=== PATIENT | male | born 1960 | race African-American/Black ===

== ENCOUNTER 2017-01-12 00:04 | Inpatient (IN) ==
[2017-01-12] MEDS ORDERED: SODIUM CHLORIDE 0.9% 500 ML IV STA (01:18)
--- NOTE | 2017-01-12 01:42 | Emergency Department Note ---
Cameron Hobson Mantricia, am scribing for, and in the presence of, Srinivasan Hurst M.D. 01:04. Aris Hobson Howard T, M.D., personally performed the services described in this documentation, ascribed by Sulema Barnes in my presence, and it is both accurate and complete . Arrival - Arrival Chief Complaint: Urogenital - Male Stated Complaint: Male ED Nursing Triage Note: C/C transfer from [facility] for Urology consult. They were not able to insert a crump catheter. Pt was initially seen in ER for fever. Mode of Arrival: Stretcher Limitations: Language Barrier Source: Family Time Seen by Provider: 01/12/17 00:40 - History of Present Illness HPI Narrative: Pt is a 56 y/o black male arriving to ED as a transfer from [facility] for evaluation of blood in urine that onset today. Pt was initially at [facility] for evaluation of a fever of 104. Before arriving to [place], pt was given Ibuprofen by . Once at [facility], a crump catheter was placed and blood was noticed in urine. reports no blood was noticed before the catheter placement. Pt was Dx with a UTI 2-3 days ago. She also states that pt has not talked in a year and has been declining in health since then. she reports that pt was to be placed into the local half-way today, but pt had an elevated temperature. She reports no other complaints to ED. Onset (ago): hour(s) Consistency: constant Allergies/Adverse Reactions: Allergies Allergy/AdvReac Type Severity Reaction Status Date / Time No Known Allergies Allergy Unverified 01/12/17 00:21 Review of System - Review of System 12 point system: reviewed and no additional remarkable complaints except as stated - Review of System Constitutional: Present: fever. Absent: chills, diaphoresis Eyes: Absent: pain Respiratory: Absent: cough Cardiovascular: Absent: chest pain Genitourinary male: Present: other (blood in urine; UTI). Absent: urgency, dysuria Musculoskeletal: Absent: arm pain, back pain, leg pain, neck pain Medical,Surgical,& Family Hx - Medical History Cardio: History of: Hypertension Endocrine: History of: Dyslipidemia - Social History Smoking Status: Unknown if ever smoked Frequency of Alcohol Use: None Type of Drug Use: None Exam Vital Signs: Vital Signs Temperature 99 F 01/12/17 00:04 Pulse Rate 105 H 01/12/17 00:04 Respiratory Rate 16 01/12/17 00:04 Blood Pressure 147/87 01/12/17 00:04 O2 Sat by Pulse Oximetry 100 01/12/17 00:04 - General General appearance: alert, in no apparent distress - Head Head exam: Present: atraumatic, normocephalic, normal inspection - Eye Eye exam: Present: normal appearance, PERRL, EOMI - ENT ENT exam: Present: normal exam, normal oropharynx, mucous membranes moist, TM's normal bilaterally, normal external ear exam - Neck Neck exam: Present: normal inspection, full ROM, trachea midline. Absent: tenderness - Chest Chest inspection: Present: normal inspection, symmetric chest wall rise. Absent : tenderness - Respiratory Respiratory exam: Present: normal lung sounds bilaterally - Cardiovascular Cardiovascular exam: Present: normal rhythm, tachycardia, normal heart sounds - Abdominal Exam Abdominal exam: Present: soft, normal bowel sounds. Absent: distention, tenderness, guarding, rebound - exam: Present: normal testicular lie, other (fresh blood on diaper). Absent : testicular tenderness, urethral discharge, scrotal swelling - Extremities Exam Extremities exam: Present: normal inspection, full ROM, normal capillary refill. Absent: tenderness, pedal edema - Back Exam Back exam: Present: normal inspection, full ROM. Absent: tenderness - Neurological Exam Neurological exam: Present: alert, oriented X3, CN II-XII intact, normal gait, reflexes normal - Psychiatric Psychiatric exam: Present: normal affect, normal mood - Skin Skin exam: Present: warm, dry, intact, normal color Course Course Narrative: Medical decision making: Patient's history and exam is consistent with possible urethral injury, contacted Dr. Pollard urology [facility] consultant, urologist did not recommend any type of immediate intervention or attempt at repeat cath instead recommended a bladder scan in the morning and he will then evaluate the patient' s situation for further treatment as needed. We will contact hospitalist for admission. Of note, the outside facility was worried about urinary tract infection possible urosepsis and antibiotics were given, we will verify that blood cultures and lactic acid are obtained however no urinalysis is available at this time. Disposition Clinical Impression: Urinary tract infection, Urethral injury Case discussed with: patient Disposition: Still a Patient Condition: Stable Time of Disposition: 01:42
[2017-01-12 02:11] LABS: Basophils % 0.2 % (0.0-0.8); Hemoglobin 11.1 GM/DL (14.0-18.0); Immature Granulocytes % 0.7 %; Immature Granulocytes Absolute 0.07 #; Lymphocytes # 0.9 10*3/uL (1.4-4.0); Lymphocytes % 8.6 % (21.2-54.2); Mean Corpuscular HGB Conc 33.6 GM/DL (32-36); Mean Corpuscular Hemoglobin 27 PG (27-34); Mean Corpuscular Volume 81.1 FL (87-102); Mean Platelet Volume 9.3 FL (9.6-12.0); Monocytes % 9.3 % (1.7-12.7); Neutrophils # 8.5 10*3/uL (1.4-7.4); Neutrophils % 81.2 % (38.7-73.9); Platelet Count 200 T/CUMM (130-400); Red Blood Count 4.07 MC/CUMM (3.8-5.5); Red Cell Distribution Width 13.7 % (9.3-17.3); White Blood Count 10.5 T/CUMM (4-12)
[2017-01-12 02:31] LABS: Magnesium 1.8 MG/DL (1.8-2.4); Potassium 3.1 MMOL/L (3.5-5.1)
--- NOTE | 2017-01-12 02:37 | Hospitalist History & Physical ---
Assessment and Plan (1) Febrile illness Status: Acute Current Visit: Yes (2) Sacral decubitus wound Status: Acute Current Visit: Yes (3) Urethral injury Status: Acute Assessment and plan: My suspicion is the fever is coming from the wound. We will put him on broad coverage antibiotics. Consult wound care. He was debrided by Dr. Lewis Billingsley Junior. Will consult Dr. Pollard to assess his urethral injury. Continue other home meds as appropriate. Patient takes his medications by mouth he is nonverbal. Current Visit: Yes History of Present Illness Chief complaint: Fever History of present illness: Mr. Valenzuela is a 56 year old male with past medical history of schizophrenia hypertension includes cholesterol nonverbal state and bedbound state who is his normal state of health till today. Patient gets his care at home. He is cared for by his mom who is 90 years old and his brother. He became febrile and was taken to [facility]. Patient also has a history of a decubitus ulcer that is getting daily wound care. They tried to place a Reilly in the patient and before they got urine returned the inflated the bulb and cause some irritation to his urethra. Patient was accepted his transfer to our hospital for further evaluation. They gave him 1 dose of Levaquin at the outside facility. They thought that he had a urinary tract infection. Allergies Allergy/AdvReac Type Severity Reaction Status Date / Time No Known Allergies Allergy Unverified 01/12/17 00:21 Medical,Surgical,& Family Hx - Medical History Cardio: History of: Hypertension Endocrine: History of: Dyslipidemia - Surgical History Additional Surgical History: Wound debridement - Family History Family History: Reports;: Family Hematology, Family Hypertension, Family Stroke - Social History Smoking Status: Never smoker Frequency of Alcohol Use: None Type of Drug Use: None ROS unobtainable: other (Patient is nonverbal) Exam - Constitutional Vitals: Period Temp Pulse Resp BP Sys/Dawn Pulse Ox Last 24 Hr 99 F-99 F 105-105 16-16 147-147/87-87 100 General appearance: under weight - Head Head exam: Present: normal inspection - Eye Eye exam: Present: EOMI (Patient would not cooperate with exam) - ENT ENT exam: Present: normal exam - Neck Neck exam: Present: normal inspection - Respiratory Respiratory exam: Present: clear to auscultation bilaterally - Cardiovascular Cardiovascular exam: Present: regular rate and rhythm - GI/Abdominal GI/Abdominal exam: Present: normal bowel sounds - Extremities Exam Extremities exam: Present: normal inspection - Back Exam Back exam: Present: other (Patient has a sacral decubitus ulcer with obvious drainage and odor) - Neurological Exam Neurological exam: Present: other (Patient will not communicate) - Psychiatric Psychiatric exam: Present: flat affect Results - Labs CBC & BMP: 01/12/17 01:57 Labs: Outside facility displayed a glucose of 127 BUN 8 creatinine of 0.7 sodium 138 potassium 3.4 chloride 94 bicarb 31 calcium 8.2 total bili 0.8 alk phos 90 his SGOT 30
[2017-01-12] MEDS ORDERED: ONDANSETRON 4 MG/2 ML VIAL IV PRN (02:41)
[2017-01-12] MEDS ORDERED: ACETAMINOPHEN 325 MG TABLET PO PRN (02:41)
[2017-01-12] MEDS: VANCOMYCIN INJ 1,000 MG in SODIUM CHLORIDE 0.9% 250 ML IV SCH ×3 (05:46→18:43)
--- NOTE | 2017-01-12 07:29 | XRay Report ---
History: Fever Date: 01/12/2017 Study: Chest x-ray AP portable Comparison exam: 01/11/2017 The cardiomediastinal silhouette is unremarkable. The pulmonary vasculature is not engorged. The exam was performed in shallow inspiration. There is mild bronchovascular crowding in the lung bases. Some very subtle mild pneumonia in the left base cannot be completely excluded, due to some asymmetry in this area. There is no gross pleural effusion. There is no pneumothorax. Osseous structures are similar. Impression: Shallow inspiration with bronchovascular crowding in the lung bases. Equivocal mild pneumonia left lower lobe. Consider follow-up exams for clarification PROCEDURE INTERPRETED AT [facility] DEPARTMENT OF RADIOLOGY Final Report Signed by: Dr. Renetta Buenrostro
[2017-01-12] MEDS ORDERED: ACETAMINOPHEN 650 MG SUPP RECTAL PRN (07:31)
--- NOTE | 2017-01-12 07:57 | Urology Consultation ---
History of Present Illness - Data of Consult Consult date: 01/12/17 - Consult Narrative History of present illness: Mr. Valenzuela is a 56 year old male This 56-year-old black male is seen in consultation because of difficulty passing a Reilly catheter. The history is obtained from the patient's sister. He was taken to the emergency room in [place] yesterday and apparently there had an elevated temperature was not able to void and they attempted to pass a Reilly catheter and did not get any urine back but the balloon was blown up possibly in the prostate or the urethra. He was referred here. He has been in a diaper bed ridden with an undetermined neurological problem. His sister says he has never had difficulty voiding and never been catheterized he does have a history of occasional urinary tract infection. Since she has been here he has been afebrile and there is no elevation of his white count and he has less than 200 cc on bladder scan. I am going to recommend that we do a flexible cystoscopy today to see if there is any evidence of obstruction and I will try to get a urine specimen at that time to see if there is evidence of urinary tract infection CC: Sofy Beltre MD - Home Medications and Allergies Allergies/Adverse Reactions: Allergies Allergy/AdvReac Type Severity Reaction Status Date / Time No Known Allergies Allergy Unverified 01/12/17 00:21 Exam - Constitutional Vitals: Period Temp Pulse Resp BP Sys/Dawn Pulse Ox Last 24 Hr 98.7 F-103.4 F 80-128 16-18 101-147/56-87 94-100 Results - Labs CBC & BMP: 01/12/17 01:57 01/12/17 01:57
--- NOTE | 2017-01-12 08:18 | XRay Report ---
Exam: XR hip 2V RT Date: 01/12/2017 7:30 AM Comparison: None Indication: Hip swelling Technique:[AP and lateral right hip] Findings: Joint space narrowing with sclerosis, subchondral cysts, and osteophytes. 20 x 3 mm ossific finding projecting lateral to the greater trochanter. Soft tissue swelling. 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 20 x 3 mm sclerotic finding lateral to the right greater trochanter which is probably related to remote fracture rather than more acute injury or prior trochanteric bursitis. Indeterminate soft tissue swelling and follow-up is recommended. CT may be helpful for further evaluation. Rectal fecal impaction. PROCEDURE INTERPRETED AT [facility] DEPARTMENT OF RADIOLOGY Final Report Signed by: Dr. Kaley Vaca
[2017-01-12] MEDS ORDERED: ONDANSETRON 4 MG/2 ML VIAL ONE (09:00)
[2017-01-12] MEDS ORDERED: PHENYLEPHRINE 50 MG/5 ML VIAL ONE (09:00)
[2017-01-12] MEDS ORDERED: ETOMIDATE 20 MG/10 ML VIAL IV ONE (09:00)
[2017-01-12] MEDS ORDERED: LIDOCAINE 100 MG/5 ML SYRINGE ONE (09:00)
[2017-01-12] MEDS ORDERED: PROPOFOL 500 MG/50 ML BOTTLE IV ONE (09:00)
[2017-01-12] MEDS ORDERED: PHENYLEPHRINE 1 MG/10 ML SYRINGE IV ONE (09:00)
[2017-01-12] MEDS: PIPERACILLIN/TAZOBACTAM 3,375 MG in SODIUM CHLORIDE 0.9% 100 ML IV SCH ×3 (09:04→21:24)
[2017-01-12] MEDS: ENOXAPARIN 40 MG/0.4 ML SYRINGE SUBCUT SCH (09:04)
[2017-01-12] MEDS: PANTOPRAZOLE 40 MG TABLET PO SCH (09:04)
[2017-01-12] MEDS ORDERED: TUBERCULIN SKIN TEST 0.1 ML SYRINGE INTRADERM ONE (09:39)
--- NOTE | 2017-01-12 11:48 | Infectious Disease Consult ---
Assessment and Plan (1) Febrile illness Status: Acute Assessment and plan: Suspect infected infected sacral wound is the cause. Patient could be septicemic. Current Visit: Yes (2) Sacral decubitus wound Status: Acute Assessment and plan: Infected, likely polymicrobial. Recommendations: 1. Agree with empiric vancomycin and Zosyn; consult pharmacy to assist with vancomycin dosing and monitoring. Goal trough level is 15-20. Monitor renal function closely on vancomycin. 2. Debridement needed, with follow-up cultures of tissue 2. HIV serology screen (patient extremely cachectic) Thank you very much for the consult. Will follow. Current Visit: Yes History of Present Illness Chief complaint: Sacral wound sacral wound History of present illness: History obtained from patient's sister as he is mute. Mr. Valenzuela is a 56 year old male with a long history of severe schizophrenia. He declined generally about 6 months ago became bedbound stopped talking stop walking and became incontinent of urine and stool. Only thing he is still doing is eating, sister says eats a lot by Dr. thompson as he was so thin. He developed wound to the left side of sacral area about 2 months ago. He started seeing Dr. Lewis Billingsley in the wound center 2 weeks ago and saw him again last week. He instructions are given for local wound care. Patient has not been on antibiotics recently. Yesterday when his sister went to check on him she found that he was febrile and so had him brought to the hospital. Patient was febrile to over 103 when he got here last night. A very foul-smelling wound was noted to the left ischial area. I am asked to assist with antibiotic therapy. Allergies Allergy/AdvReac Type Severity Reaction Status Date / Time No Known Allergies Allergy Unverified 01/12/17 00:21 ROS unobtainable: due to mental status Medical,Surgical,& Family Hx - Medical History Cardio: History of: Hypertension Endocrine: History of: Dyslipidemia - Family History Family History: Reports;: Family Hematology, Family Hypertension, Family Stroke - Social History Smoking Status: Never smoker Frequency of Alcohol Use: None Type of Drug Use: None Infectious Disease Exam H&P - Constitutional Vitals: Vital Signs Temp Pulse Resp BP Pulse Ox 99.4 F 128 H 18 101/56 94 L 01/12/17 09:11 01/12/17 07:38 01/12/17 07:38 01/12/17 07:38 01/12/17 07:38 Intake and Output 01/11/17 01/12/17 01/12/17 23:59 07:59 15:59 Intake Total 0 / 0 250 / 250 Output Total 0 / 0 Balance 0 / 0 250 / 250 Intake: IV 250 / 250 Vancomycin Inj 1,000 mg 250 / 250 In Ns 250 ml @ 250 mls/hr IV Q12H [facility] Rx#: [id number] Oral 0 / 0 Output: Urine 0 / 0 Stool 0 / 0 Other: Weight 51.165 kg Patient Weight 01/12/17 23:59 Weight 51.165 kg Exam: General: Patient cachectic, chronically ill looking, mute HEENT: Mucous membranes pale pink and moist, anicteric acyanotic, MARY, would not open mouth inspection Neck: Supple, no thyroid gland enlargement, no lymphadenopathy Respiratory system: Breath sounds vesicular, no crepitations or wheezes Cardiovascular: Normal S1 and S2, no murmurs appreciated Abdomen: Normal bowel sounds, soft nontender throughout, no organomegaly or mass Genitourinary: No suprapubic pain or bladder distention Extremities: no edema Skin: No rash MS: Photos of wound to left sacral area noted with several large necrotic and I am told it tunnels along the sides at least 3 inches, there is purulent material draining from the wound and told Reports - Labs CBC & BMP: 01/12/17 01:57 01/12/17 01:57 Labs: Laboratory Results - last 24 hr 01/12/17 01/12/17 01/12/17 01:57 01:57 01:57 WBC 10.5 RBC 4.07 Hgb 11.1 L Hct 33.0 L MCV 81.1 L MCH 27 MCHC 33.6 RDW 13.7 Plt Count 200 MPV 9.3 L Neut % (Auto) 81.2 H Lymph % (Auto) 8.6 L [place] % (Auto) 9.3 Eos % (Auto) 0.0 Baso % (Auto) 0.2 Neut # (Auto) 8.5 H Lymph # (Auto) 0.9 L [place] # (Auto) 1.0 H Eos # (Auto) 0.0 Baso # (Auto) 0.0 Immature Gran % 0.7 Nucleated RBC % 0.0 Immature Gran # 0.07 Nucleated RBCs # 0.00 Sodium 136 Potassium 3.1 L Chloride 98 Carbon Dioxide 31 Anion Gap 10.1 BUN 7 Creatinine 0.60 L GFR Calculation 145 BUN/Creatinine Ratio 11.00 Glucose 118 H Calculated Osmolality 270.0 L Lactic Acid 1.1 Calcium 8.0 L Magnesium 1.8 - Diagnostic Findings Procedure: Chest x-ray: image reviewed by me, report reviewed by me (I did not appreciate consolidation)
--- NOTE | 2017-01-12 13:01 | General Surgery Consult Note ---
Assessment and Plan - Time spent with patient Time spent with patient: Less than 30 minutes History of Present Illness Chief complaint: Pressure sore History of present illness: Mr. Valenzuela is a 56 year old male Who has had a sacral pressure sore for about 2 months. Over the last several days he has become febrile and ill appearing. He was admitted with a an obviously infected pressure sore. Family states that is been present for about 2 months. I do not know if it is painful. Patient has had a gradual decline over the last 6 months and especially in the last couple of months. Allergies Allergy/AdvReac Type Severity Reaction Status Date / Time No Known Allergies Allergy Unverified 01/12/17 00:21 Medical,Surgical,& Family Hx - Medical History Cardio: History of: Hypertension Endocrine: History of: Dyslipidemia - Family History Family History: Reports;: Family Hematology, Family Hypertension, Family Stroke - Social History Smoking Status: Never smoker Frequency of Alcohol Use: None Type of Drug Use: None - Constitutional Constitutional: Present: chills, fever(s), weight loss - Cardiovascular Cardiovascular: Absent: dyspnea Exam - Constitutional Vitals: Period Temp Pulse Resp BP Sys/Dawn Pulse Ox Last 24 Hr 98.7 F-103.4 F 80-128 16-19 101-147/54-87 94-100 General appearance: no acute distress, cachectic - Head Head exam: Present: normocephalic - Eye Eye exam: Absent: scleral icterus - Neck Neck exam: Present: trachea midline - Respiratory Respiratory exam: Absent: accessory muscle use - GI/Abdominal GI/Abdominal exam: Present: soft. Absent: distended, tenderness - Back Exam Back exam: Present: other (There is a 4 cm necrotic sacral ulcer with necrotic fascia and muscle in the base. There is extensive undermining over several centimeters in every direction.) - Neurological Exam Neurological exam: Present: altered Quality Measures - Stroke Symptom Onset Unknown: No Results - Labs CBC & BMP: 01/12/17 01:57 01/12/17 01:57 Lab Results: I have reviewed the past 24 hour labs
--- NOTE | 2017-01-12 13:03 | Event Note ---
This is an addendum to the history and physical since the computer would not let me do an assessment and plan. The patient has a sacral pressure sore which is deep and necrotic. This is obviously infected and gangrenous. I have recommended debridement if they want to continue with aggressive care. The family wants to do everything possible. We did discuss that there were significant risk with surgery this especially in light of the patient's severely debilitated state. They understand that there is a risk of heart attack stroke or with anesthesia. We can see if we can do this under sedation and local anesthesia. The prognosis for healing of this ulcer is poor. All of these were issues were discussed in detail and the family wishes to proceed.
--- NOTE | 2017-01-12 13:04 | Hospitalist Progress Note ---
Assessment and Plan (1) Sacral decubitus wound Status: Acute Assessment and plan: Appreciates ID's input, will wait for Surgery and wound care Nurse's recommendations Follow cultures, continue IV antibiotics. Current Visit: Yes (2) Urethral injury Status: Acute Assessment and plan: This happened at the previous hospital, patient is currently incontinent of urine. Urology has been consulted, they recommend a flexible cystoscopy which will be done today to see if there is any evidence of obstruction Current Visit: Yes (3) Febrile illness Status: Acute Assessment and plan: Cultures are pending. Continue empiric antibiotics therapy Follow ID's recommendations Current Visit: Yes (4) Cachexia Status: Acute Assessment and plan: R/o HIV Follow HIV results Dietitian consult Current Visit: Yes (5) Schizophrenia Status: Acute Assessment and plan: reconcile home meds Current Visit: Yes (6) Hypokalemia Status: Acute Assessment and plan: will replete and get Mg level. Current Visit: Yes Hospitalist: Subjective Interval history: Patient seen this am. He looks very cachectic and weak. His decubitus ulcer looks nasty though sister said he had a debridement some days ago.He spiked a temp this am of 103.4. Exam - Constitutional Vitals: Period Temp Pulse Resp BP Sys/Dawn Pulse Ox Last 24 Hr 98.7 F-103.4 F 80-128 16-19 101-147/54-87 94-100 General appearance: no acute distress, cachectic - Respiratory Respiratory exam: Present: clear to auscultation bilaterally - GI/Abdominal GI/Abdominal exam: Present: normal bowel sounds - Back Exam Back exam: Present: other (sacral decubitus ulcer) - Neurological Exam Neurological exam: Present: alert, oriented X3 Results - Labs CBC & BMP: 01/12/17 01:57 01/12/17 01:57 Lab Results: I have reviewed the past 24 hour labs Quality Measures - Stroke Symptom Onset Unknown: No
[2017-01-12 13:10] LABS: HIV Antigen/Antibody Result Nonreactive (Nonreactive)
[2017-01-12] MEDS ORDERED: BUPIVACAINE MPF 0.25% /EPI 30 ML VIAL ONE (13:36)
[2017-01-12] MEDS ORDERED: LIDOCAINE 1%/EPI INJ 20 ML VIAL ONE (13:36)
[2017-01-12] MEDS: LACTATED RINGERS 1,000 ML IV SCH ×3 (16:20→18:30)
--- NOTE | 2017-01-12 17:00 | Operative Note ---
Date of procedure: 01/12/17 Pre-op diagnosis: Necrotic sacral pressure ulcer Post-op diagnosis: same Procedure: Excisional debridement of sacral pressure ulcer skin and subcutaneous tissue, muscle, and fascia 10 x 9 x 2.5 cm Findings and technique: After informed consent was obtained the patient was brought the operating room and placed in supine position. After successful induction with general anesthesia the patient was turned in a lateral decubitus position and the buttocks and sacral area prepped and draped in usual sterile fashion. Local anesthesia was infiltrated widely. Skin edges were debrided with a #10 blade down to necrotic subcutaneous tissue and this necrotic subcutaneous tissue undermined for several centimeters in all directions. Necrosis included gluteus muscle to the left and the right of the sacrum and coccyx. This was debrided away to healthy bleeding muscle. Cautery was used to achieve hemostasis. After all necrotic tissue was debrided away and the wound was irrigated and spot electrocautery applied to any potential bleeding points. Wound was then packed open with quarter strength Dakin solution. Anesthesia: GETA, local Surgeon / Physician: Kalen Saucedo III. Estimated blood loss: other (50 mL) Specimens: none sent Condition: stable Disposition: PACU Results - Labs CBC & BMP: 01/12/17 01:57 01/12/17 01:57
--- NOTE | 2017-01-12 17:16 | Operative Note ---
Date of procedure: 01/12/17 Pre-op diagnosis: Possible urethral stricture Post-op diagnosis: other (No evidence of stricture) Procedure: After the patient had general anesthesia and the decubitus ulcer been debrided he was turned in the supine supine position prepped and draped in the usual manner the flexible cystoscope was introduced under direct vision. The anterior urethra was normal and there was evidence of trauma to the posterior bulbous urethra with a false passage and the scope was passed into the bladder under direct vision. There was a partially obstructive prostate and there was debris in the bladder but no lesions were noted. It was felt that the abnormality in the bulbous urethra was due to trauma from the previous attempted catheterization. The guidewire was then passed through the cystoscope and the cystoscope was removed and a 16 Councill catheter was note was passed over the guidewire without difficulty the Reilly cath was left indwelling. If the patient needs to be catheterized in the future a coud catheter should be used to avoid the traumatic area in the posterior bulbous urethra Anesthesia: HAVEN Surgeon / Physician: Marcial Pollard Estimated blood loss: none Specimens: none sent Condition: stable Disposition: floor Results - Labs CBC & BMP: 01/12/17 01:57 01/12/17 01:57
--- NOTE | 2017-01-12 17:26 | Anesthesia Post-Op ---
Anesthesia Post OP - Post Ansesthetic Evaluation Patient seen in post op: Yes Resp: within normal limits CV: within normal limits Mental: within normal limits Temp: within normal limits [id number]: within normal limits Nausea and Vomiting: within normal limits Pain: within normal limits
[2017-01-12] MEDS ORDERED: ePHEDrine 50 MG/ML AMP ONE (17:32)
[2017-01-12] MEDS ORDERED: SODIUM CHLORIDE 0.9% 250 ML IV ONE (17:32)
[2017-01-12] MEDS ORDERED: fentaNYL 100 MCG/2 ML VIAL ONE (17:32)
[2017-01-12] MEDS ORDERED: DESFLURANE 1 UNIT/15 MINUTE INH ONE (17:32)
[2017-01-12] MEDS ORDERED: LACTATED RINGERS 2,000 ML IV ONE (17:32)
[2017-01-12] MEDS ORDERED: NOREPINEPHRINE 4 MG/4 ML VIAL IV ONE ×3 (18:23→18:36)
[2017-01-12] MEDS: SODIUM CHLORIDE 0.9% 1,000 ML IV SCH ×2 (18:31→23:32)
[2017-01-12] MEDS: NOREPINEPHRINE 8 MG in SODIUM CHLORIDE 0.9% 242 ML IV SCH (18:33)
[2017-01-13] MEDS: NOREPINEPHRINE 8 MG in SODIUM CHLORIDE 0.9% 242 ML IV SCH ×4 (04:13→18:31)
[2017-01-13] MEDS: MORPHINE 2 MG/1 ML SYRINGE IV PRN ×2 (04:13→14:46)
[2017-01-13] MEDS: PIPERACILLIN/TAZOBACTAM 3,375 MG in SODIUM CHLORIDE 0.9% 100 ML IV SCH (04:15)
[2017-01-13] MEDS: SODIUM CHLORIDE 0.9% 1,000 ML IV SCH ×4 (05:05→21:14)
[2017-01-13] MEDS: VANCOMYCIN INJ 1,000 MG in SODIUM CHLORIDE 0.9% 250 ML IV SCH (06:00)
--- NOTE | 2017-01-13 06:53 | Event Note ---
He has had mild hypertension but is been awake and alert. He has required some levo fed. His sacral wound is clean. I suspect that he has had some septicemia related to his necrotic sacral ulcer. A urinary tract infection would also be a possibility. He appears to be relatively stable though he is still requiring pressors. We will do dressing changes on his pressure sore.
[2017-01-13 07:08] LABS: Basophils # 0.1 10*3/uL (0.0-0.2); Basophils % 0.3 % (0.0-0.8); Hematocrit 33.9 VOL% (42.0-52.0); Hemoglobin 10.9 GM/DL (14.0-18.0); Immature Granulocytes % 3.5 %; Immature Granulocytes Absolute 1.15 #; Lymphocytes # 0.7 10*3/uL (1.4-4.0); Lymphocytes % 2.2 % (21.2-54.2); Mean Corpuscular HGB Conc 32.2 GM/DL (32-36); Mean Corpuscular Hemoglobin 27 PG (27-34); Mean Corpuscular Volume 85.2 FL (87-102); Mean Platelet Volume 11.1 FL (9.6-12.0); Monocytes # 0.8 10*3/uL (0.11-0.8); Monocytes % 2.5 % (1.7-12.7); Neutrophils # 29.8 10*3/uL (1.4-7.4); Neutrophils % 91.5 % (38.7-73.9); Platelet Count 107 T/CUMM (130-400); Red Blood Count 3.98 MC/CUMM (3.8-5.5); Red Cell Distribution Width 14.3 % (9.3-17.3); White Blood Count 32.6 T/CUMM (4-12)
[2017-01-13 07:35] LABS: Magnesium 1.6 MG/DL (1.8-2.4); Osmolality,Calculated 288.8 MOS/KG (273-304); Potassium 3.6 MMOL/L (3.5-5.1)
--- NOTE | 2017-01-13 07:38 | Urology Progress Note ---
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 He has a Reilly catheter in now I am going to leave this for the time being. We do not have a urinalysis on the order that today to look for possible infection Exam - Constitutional Vitals: Period Temp Pulse Resp BP Sys/Dawn Pulse Ox Last 24 Hr 97.0 F-103.4 F 69-128 11-28 67-124/37-79 94-100 Results - Labs CBC & BMP: 01/13/17 06:30 01/13/17 06:30
[2017-01-13 07:55] LABS: Band Neutrophils 20 % (0-10); Lymphocytes 2 % (20-55); Metamyelocytes 11 %; Myelocytes 2 %; Segmented Neutrophils 63 % (50-85); Total Cells Counted 100
[2017-01-13 07:56] LABS: Burr Cells Few; Hypochromasia 1+; Microcytosis 1+; Platelet Estimate Decreased
[2017-01-13 07:57] LABS: Acanthocytes Few
[2017-01-13] MEDS: PANTOPRAZOLE 40 MG TABLET PO SCH (08:22)
[2017-01-13] MEDS: ENOXAPARIN 40 MG/0.4 ML SYRINGE SUBCUT SCH (08:34)
[2017-01-13] MEDS ORDERED: SODIUM CHLORIDE 0.9% 1,000 ML IV ONE (08:57)
[2017-01-13] MEDS ORDERED: MULTIVITAMIN LIQUID (CENTRUM) 60 ML BOTTLE PO SCH (09:00)
[2017-01-13] MEDS: POTASSIUM CHLORIDE RIDER 10 MEQ in PREMIX 1 EACH IV SCH (09:22)
--- NOTE | 2017-01-13 09:22 | Hospitalist Progress Note ---
Assessment and Plan (1) Sepsis Status: Acute Assessment and plan: Sepsis secondary to gram-negative bacteremia with end organ dysfunction including hypotension, acute renal failure with acute tubular necrosis and tachycardia. Continue IV fluids and IV antibiotics. Lactic acid pending. Plans for triple-lumen insertion today. Current Visit: Yes (2) JOCE (acute kidney injury) Status: Acute Assessment and plan: With acute tubular necrosis secondary to hypotension. Requiring pressors. Current Visit: Yes (3) ATN (acute tubular necrosis) Status: Acute Assessment and plan: Likely secondary to sepsis and hypovolemia with hypotension. Continue IV fluids. Consider nephrology consult if no improvement. Current Visit: Yes (4) Urethral injury Status: Acute Assessment and plan: Urology following. Reilly catheter in place. Current Visit: Yes Qualifiers: Encounter type: initial encounter Qualified Code(s): S37.30XA - Unspecified injury of urethra, initial encounter (5) Sacral decubitus wound Status: Acute Assessment and plan: Continue wound debridement and IV antibiotics. Wound culture positive for gram- negative rods. Current Visit: Yes (6) Cachexia Status: Acute Assessment and plan: Poor oral intake. Dietary consult. Consider NG tube for tube feedings. Current Visit: Yes (7) Gram-negative bacteremia Status: Acute Assessment and plan: Continue Zosyn and add Merrem. Follow-up sensitivities. Current Visit: Yes Hospitalist: Subjective Interval history: Mr. Valenzuela is critically ill and remains on Levophed. He is hypotensive and tachycardic. He has acute renal failure with acute tubular necrosis likely secondary to hypotension. Lactic acid has been ordered. He meets criteria for sepsis. He has 2 peripheral lines and I plan to place a central line. Blood and wound cultures are positive for gram-negative rods. Exam - Constitutional Vitals: Period Temp Pulse Resp BP Sys/Dawn Pulse Ox Last 24 Hr 97.0 F-99 F 69-122 10-32 67-124/37-79 94-100 Exam: Constitutional System: Mild distress. No tremulousness. Thin, cachectic, ill- appearing. Head: Normocephalic, atraumatic. Ears, Nose and Throat System: No pain or tenderness. No epistaxis or discharge Eyes System: Pupils equal, round, and reactive. Extraocular muscles intact. Neck: Supple, without adenopathy, No jugular venous distention. Respiratory System: Chest clear to auscultation. Cardiovascular System: Heart with tachycardia. no murmur. GI System: Abdomen soft, nontender. Normo active bowel sounds present. Musculoskeletal System: limbs with no pedal edema. Full distal pulses. Sacral decubitus ulcer noted. Neurological System: Patient does not respond verbally. Psychiatric System: Unobtainable secondary to patient's mental status Results - Labs CBC & BMP: 01/13/17 06:30 01/13/17 06:30 Lab Results: I have reviewed the past 24 hour labs Quality Measures - Stroke Symptom Onset Unknown: No Sepsis - Sepsis Classification of Sepsis: Severe Sepsis Possible / Suspected infection from: Bacteremia and gram-negative sepsis from sacral wound Sepsis documentation within 6 hours of presentation: fluid change - Physical Exam Respiratory exam: clear to auscultation bilaterally Capillary Refill: Greater Than 3 Seconds Peripheral pulses: Radial (L): 3+/4+, Radial (R): 3+/4+, Dorsalis Pedis (L) PM: 3+/4+, Dorsalis Pedis (R) PM: 3+/4+, Posterior Tibialis (L): 3+/4+, Posterior Tibialis (R): 3+/4+ Cardiovascular exam: tachycardia Skin exam: normal color
[2017-01-13] MEDS ORDERED: MEROPENEM 1,000 MG in SODIUM CHLORIDE 0.9% 100 ML IV SCH (09:30)
--- NOTE | 2017-01-13 09:30 | Infectious Disease Progress ---
Assessment and Plan (1) Febrile illness Status: Acute Assessment and plan: Suspect infected infected sacral wound is the cause. Patient actually 9 septic shock following his debridement yesterday and bacteremic with gram-negative rods. Current Visit: Yes (2) Sacral decubitus wound Status: Acute Assessment and plan: Infected, likely polymicrobial. Patient today with septic shock and gram- negative bacteremia. Recommendations: 1. Because the patient has deteriorated since yesterday with septic shock, de- escalate from Zosyn to meropenem pending finalization of the cultures. 2. Vancomycin on hold given acute renal failure and the random level will be checked 3. Follow-up finalized cultures; will repeat blood cultures tomorrow Current Visit: Yes Infectious Disease - PN: Subj Interval history: Patient had debridement of his sacral ulcer yesterday he also had cystoscopy and placement of Reilly catheter. He was hypotensive after surgery requiring admission to ICU for vasopressors. He has not had fever. He remains mute. Infectious Disease Exam (PN) - Constitutional Vitals: Temp Pulse Resp BP Pulse Ox 97.3 F L 109 H 28 H 100/74 99 01/13/17 04:00 01/13/17 09:21 01/13/17 09:21 01/13/17 09:21 01/13/17 09:21 General appearance: no acute distress, cachectic Exam: General appearance: Ill-looking, alert but mute - Eye Eye exam: Present: EOMI. no icterus Pupils: Present: MARY - ENT ENT exam: Would not open mouth inspection - Respiratory Respiratory exam: vesicular BS, no crepitations or wheezes - Cardiovascular Cardiovascular exam: regular rate and rhythm, no murmurs - GI/Abdominal GI/Abdominal exam: normal bowel sounds, soft, non-tender, no organomegaly or mass - Extremities Exam Extremities exam: no edema - Skin Skin exam: no rash Results - Labs CBC & BMP: 01/13/17 06:30 01/13/17 06:30 Lab Results: I have reviewed the past 24 hour labs (Gram-negative rods from wound and and blood culture) Quality Measures - Stroke Symptom Onset Unknown: No
--- NOTE | 2017-01-13 10:09 | Physician Query Form ---
CLICK EDIT DOCUMENT TO SELECT QUERY ANSWER --> OK --> SIGN Evelin Villanueva RN Clinical Gas Fitter W) [phone] (f) [phone] [email or web address] PROVIDERS: Make your selection(s) from the choices in EACH section by typing an "x" and enter comments in the comment section. Please use your independent medical judgment in providing your response. This request does not imply that any particular answer is desired or expected. CLINICAL INDICATORS: (Providers should not edit this section) Height: 6'1" Weight: 112 Spanish Interpreter BMI: 14.9 Nutritional supplements: [facility] Boost with trays (pt edmundos mitzy) Comb Fixer notes: significant weight loss, loss of lean body mass and development of large sacral ulcer Other clinical notes: Acute Cachexia Based on the above, which following choice most accurately represents the patient's nutritional status? (X ) Malnutrition ( ) mild ( ) moderate (X ) severe ( ) Protein calorie malnutrition ( ) mild ( ) moderate ( ) severe ( ) Emaciation due to malnutrition ( ) Nutritional marasmus ( ) No nutritional deficiency ( ) Other, please specify: ( ) Clinically unable to determine Mild Malnutrition (BMI < 18.5, % Normal Body Weight 85-95%) Moderate Malnutrition (BMI < 17, % Normal Body Weight 75-85%) Severe Malnutrition (BMI < 16, % Normal Body Weight < 75%) Source: Gayatri COMMENTS: PLEASE ALSO DOCUMENT RESPONSE IN PROGRESS NOTES AND/OR DISCHARGE SUMMARY Use of terms such as suspected, likely, or probable (associated with a specific diagnosis that is being evaluated, monitored, or treated as if it exists) are acceptable and can be restated in the discharge summary if not ruled out. MTDD
--- NOTE | 2017-01-13 10:18 | Physician Query Form ---
CLICK EDIT DOCUMENT TO SELECT QUERY ANSWER --> OK --> SIGN Evelin Villanueva RN Clinical Wood Machinist W) [phone] (f) [phone] [email or web address] PROVIDERS: Make your selection(s) from the choices in EACH section by typing an "x" and enter comments in the comment section. Please use your independent medical judgment in providing your response. This request does not imply that any particular answer is desired or expected. CLINICAL INDICATORS: (Providers should not edit this section) Based on documentation of "Acute sepsis" "Acute UTI" "Acute sacral decubitus wounds" "febrile to over 103 when he got here last night. A very foul smelling wound noted to left ischial area" ER Vitals 99, 105, 16, 147/87, 100%. Treated with NS bolus, multiple IV antibiotics, Excisional debridement. Diagnosis: Acute Sepsis Please clarify the status of (diagnosis) based on the above: (X ) The above diagnosis was present on admission ( ) The above diagnosis was NOT present on admission ( ) Other, please specify: ( ) Clinically unable to determine COMMENTS: PLEASE ALSO DOCUMENT RESPONSE IN PROGRESS NOTES AND/OR DISCHARGE SUMMARY Use of terms such as suspected, likely, or probable (associated with a specific diagnosis that is being evaluated, monitored, or treated as if it exists) are acceptable and can be restated in the discharge summary if not ruled out. MTDD
--- NOTE | 2017-01-13 10:22 | Physician Query Form ---
CLICK EDIT DOCUMENT TO SELECT QUERY ANSWER --> OK --> SIGN Evelin Villanueva RN Clinical Speech Language Pathologist Assistant W) [phone] (f) [phone] [email or web address] PROVIDERS: Make your selection(s) from the choices in EACH section by typing an "x" and enter comments in the comment section Please use your independent medical judgment in providing your response. This request does not imply that any particular answer is desired or expected. CLINICAL INDICATORS: (Providers should not edit this section) Based on documentation of "Acute sacral decubitus wound" "Sacral necrotic ulcer " "sacral pressure sore which is deep and necrotic. This is obviously infected and gangrenous" "Excisional debridement of sacral pressure ulcer skin and subcutaneous tissue, muscle, and fascia 10 x 9 x 2.5 cm. This was debrided away to healthy bleeding muscle." Based on the above, could you please provide further clarification regarding the ulcer/wound? LOCATION OF WOUND/ULCER: IF A PRESSURE ULCER, PLEASE ALSO INCLUDE THE STAGE* OF THE ULCER: ( ) Stage 1 - Skin intact, non-blanchable redness ( ) Stage 2 - Partial thickness loss of dermis, includes intact or open blister ( ) Stage 3 - Full thickness tissue not including bone, tendon, or muscle ( ) Stage 4 - Full thickness tissue loss, including exposed bone, tendon, or muscle ( ) Unstageable - Full thickness tissue loss in which the base is covered by slough (yellow, flor, trejo, green or brown) and/or eschar (flor, brown or black) in the wound bed. ( ) Suspected Deep Tissue Injury - Purple or maroon localized area of discolored intact skin or blood-filled blister due to damage of underlying soft tissue from pressure and/or shear. The area may be preceded by tissue that is painful, firm, mushy, boggy, warmer or cooler as compared to adjacent tissue. ( ) Clinically unable to determine *Source: National Pressure Ulcer Advisory Panel (NPUAP) COMMENTS: PLEASE ALSO DOCUMENT RESPONSE IN PROGRESS NOTES AND/OR DISCHARGE SUMMARY Use of terms such as suspected, likely, or probable (associated with a specific diagnosis that is being evaluated, monitored, or treated as if it exists) are acceptable and can be restated in the discharge summary if not ruled out. MTDD
[2017-01-13] MEDS: MEROPENEM 1,000 MG in SODIUM CHLORIDE 0.9% 100 ML IV SCH (10:46)
[2017-01-13] MEDS: MULTIVITAMIN LIQUID (CENTRUM) 60 ML BOTTLE PO SCH (10:47)
--- NOTE | 2017-01-13 12:03 | XRay Report ---
Exam: XR chest 1V portable Indication: Central line placement Comparison study: Prior chest radiograph 01/12/2017 at 2:53 AM Findings: Since prior study, a right-sided central venous catheter is in place. The tip terminates near the cavoatrial junction. There is no pneumothorax identified. There has been interval worsening of perihilar and basilar interstitial/airspace opacities suggesting developing pulmonary edema. There is no significant pleural effusion identified. Mediastinal contours appear essentially unchanged. Osseous structures are stable from prior.. Impression: Right-sided central venous catheter placement with no evidence of pneumothorax or other postprocedural complication. Slight worsening of perihilar and basilar interstitial/airspace opacities suggesting developing interstitial edema. PROCEDURE INTERPRETED AT [facility] DEPARTMENT OF RADIOLOGY Final Report Signed by: Waqar Marie
--- NOTE | 2017-01-13 12:07 | Event Note ---
The patient was seen and examined. The site was marked. A timeout was taken. The patient's identity, procedure, consent and location were identified. Maximum barrier precautions were used during this procedure to avoid infection. The patient was prepped and draped in sterile fashion. Local anesthesia was given with 1% lidocaine plain. The internal jugular vein was accessed and the guide wire placed without difficulty. After using the tissue dilator, the triple lumen catheter was placed over the wire and the wire removed intact. All ports were flushed with normal saline and functioned well. The central line was secured with the enclosed suture. A chest x-ray was ordered to confirm placement. The patient tolerated the procedure well. The nurse will place the appropriate dressing according to the hospital protocols.
[2017-01-13 12:11] LABS: Apearance,Urine Slightly Hazy (Clear); Bilirubin,Urine Negative (Negative); Blood, Urine Moderate mg/dL (Negative); Glucose,Urine (UA) Negative (Negative); Ketones,Urine Negative (Negative); Nitrite,Urine Negative (Negative); Protein,Urine Negative; RBC,Urine 11 /HPF (0-4); Urine Color Yellow (Yellow); Urine Specific Gravity 1.005 (1.001-1.035); Urine Urobilinogen < 2.0 EU/DL (0.2-1.0); WBC,Urine 2 /HPF (0-6)
[2017-01-13] MEDS: SODIUM HYPOCHLORITE 0.25% IRRIG 473 ML BOTTLE TOP SCH ×2 (13:31→21:54)
[2017-01-13] MEDS ORDERED: DEXTROSE 50% 25 GM/50 ML VIAL IV PRN (13:38)
[2017-01-13] MEDS ORDERED: GLUCAGON 1 MG VIAL IM PRN (13:38)
--- NOTE | 2017-01-13 15:01 | XRay Report ---
XR chest 1V portable Indication: Feeding tube placement Comparison: 13 January 2017 at 1137 Findings: Exam is centered over the chest and upper abdomen. Feeding tube is present with tip overlying the left upper quadrant directed superiorly. No other changes are present from previous exam. Impression: NG tube overlies the stomach with tip directed superiorly. PROCEDURE INTERPRETED AT [facility] DEPARTMENT OF RADIOLOGY Final Report Signed by: Dr. Nikolay Pringle
[2017-01-13] MEDS: INSULIN REGULAR 100 UNIT/ML SUBCUT SCH (18:27)
[2017-01-14] MEDS ORDERED: MAGNESIUM SULF RIDER 2 GM in PREMIX 1 EACH IV ONE (00:43)
[2017-01-14] MEDS: MORPHINE 2 MG/1 ML SYRINGE IV PRN ×2 (00:44→12:46)
[2017-01-14] MEDS ORDERED: POTASSIUM CHLORIDE RIDER 10 MEQ in PREMIX 1 EACH IV PRN (00:45)
[2017-01-14] MEDS: NOREPINEPHRINE 16 MG in SODIUM CHLORIDE 0.9% 234 ML IV SCH ×4 (00:54→23:11)
[2017-01-14] MEDS: INSULIN REGULAR 100 UNIT/ML SUBCUT SCH ×4 (00:57→19:25)
[2017-01-14] MEDS: POTASSIUM CHLORIDE RIDER 10 MEQ in PREMIX 1 EACH IV SCH ×2 (01:04→02:05)
[2017-01-14] MEDS: SODIUM CHLORIDE 0.9% 1,000 ML IV SCH ×2 (02:31→07:24)
[2017-01-14] MEDS ORDERED: AMIODARONE 450 MG/9 ML VIAL IV ONE (03:15)
[2017-01-14] MEDS ORDERED: AMIODARONE INJ 150 MG in DEXTROSE 5% 100 ML IV ONE (03:30)
[2017-01-14] MEDS ORDERED: AMIODARONE INJ 450 MG in DEXTROSE 5% 241 ML IV SCH ×2 (03:40→09:40)
[2017-01-14 05:21] LABS: Hematocrit 32.8 VOL% (42.0-52.0); Hemoglobin 10.7 GM/DL (14.0-18.0); Immature Granulocytes % 15.6 %; Immature Granulocytes Absolute 6.61 #; Lymphocytes # 0.6 10*3/uL (1.4-4.0); Lymphocytes % 1.5 % (21.2-54.2); Mean Corpuscular HGB Conc 32.6 GM/DL (32-36); Mean Corpuscular Hemoglobin 27 PG (27-34); Mean Corpuscular Volume 82.6 FL (87-102); Mean Platelet Volume 12.3 FL (9.6-12.0); Monocytes # 1.1 10*3/uL (0.11-0.8); Monocytes % 2.6 % (1.7-12.7); Neutrophils # 33.9 10*3/uL (1.4-7.4); Neutrophils % 80.3 % (38.7-73.9); Red Blood Count 3.97 MC/CUMM (3.8-5.5); Red Cell Distribution Width 14.7 % (9.3-17.3)
[2017-01-14 05:25] LABS: INR 1.7; PT Patient Result 18.4 SECS
[2017-01-14 05:29] LABS: Albumin 1.9 G/DL (3.4-5.0); Calcium 6.4 MG/DL (8.5-10.1); Osmolality,Calculated 297.6 MOS/KG (273-304); Platelet Count 96 T/CUMM (130-400); Potassium 3.4 MMOL/L (3.5-5.1); Total Protein 4.5 G/DL (6.4-8.3)
[2017-01-14 05:30] LABS: White Blood Count 42.3 T/CUMM (4-12)
[2017-01-14 05:42] LABS: Magnesium 1.9 MG/DL (1.8-2.4); Prealbumin < 3.0 MG/DL (20-40)
[2017-01-14 06:00] LABS: Band Neutrophils 9 % (0-10); Lymphocytes 1 % (20-55); Myelocytes 1 %; Segmented Neutrophils 87 % (50-85); Total Cells Counted 100
[2017-01-14 06:01] LABS: Acanthocytes Few; Hypochromasia Slight; Platelet Estimate Decreased
--- NOTE | 2017-01-14 06:12 | EKG Report ---
Stationary ECG Study [facility] Test Date: 01/14/2017 12:33:01 AM Pat Name: EPIFANIO FORMAN Department: Room: 108 Gender: M Milliner Helper: JESSICA : 1960 Requested by: Jeffy Braun Order Number: [id number] Reading MD: PAUL VASQUEZ Intervals Alicia Rate: 138 P: 999 ND: 0 QRS: -81 QRSD: 93 T: 88 QT: 333 QTc: 414 Interpretive Statements SUPRAVENTRICULAR TACHYCARDIA MARKED LEFT AXIS DEVIATION LOW QRS VOLTAGE IN EXTREMITY LEADS INCOMPLETE RIGHT BUNDLE BRANCH BLOCK Electronically Signed On 01-15-17 07:58:31 CDT by PAUL VASQUEZ [id number]
--- NOTE | 2017-01-14 07:32 | Urology Progress Note ---
Urology - PN: Subj Interval history: The urine does not look infected. The initial impression in the emergency room was this was urosepsis but I do not think this is the case. I am going to leave the Reilly catheter in for now Exam - Constitutional Vitals: Period Temp Pulse Resp BP Sys/Dawn Pulse Ox Last 24 Hr 97.3 F-98.1 F 99-144 12-40 71-132/44-93 93-100 Results - Labs CBC & BMP: 01/14/17 04:50 01/14/17 04:50
[2017-01-14] MEDS ORDERED: DEXTROSE 5% LACTATED RINGERS 1,000 ML IV SCH (08:00)
[2017-01-14] MEDS: PANTOPRAZOLE 40 MG TABLET PO SCH (08:14)
[2017-01-14] MEDS: SODIUM HYPOCHLORITE 0.25% IRRIG 473 ML BOTTLE TOP SCH ×2 (08:26→22:06)
[2017-01-14] MEDS: MULTIVITAMIN LIQUID (CENTRUM) 60 ML BOTTLE PO SCH (08:26)
[2017-01-14] MEDS: ENOXAPARIN 40 MG/0.4 ML SYRINGE SUBCUT SCH (08:26)
[2017-01-14] MEDS ORDERED: HEPARIN/NACL 0.9% 2 UNITS/ML 500 ML IV ONE (09:13)
--- NOTE | 2017-01-14 10:10 | Infectious Disease Progress ---
Assessment and Plan (1) Febrile illness Status: Acute Assessment and plan: Suspect infected infected sacral wound is the cause. Patient actually 9 septic shock following his debridement yesterday and bacteremic with gram-negative rods. Current Visit: Yes (2) Sacral decubitus wound Status: Acute Assessment and plan: Infected, likely polymicrobial. Patient today with septic shock and gram- negative bacteremia. Current Visit: Yes (3) JOCE (acute kidney injury) Status: Acute Assessment and plan: Acute kidney injury related to septic shock. Antibiotic doses adjusted accordingly. Current Visit: Yes (4) Septic shock Status: Acute Assessment and plan: Septic shock with gram-negative bacteremia, source likely the infected sacral decubitus ulcer. Recommendations: 1. Add levofloxacin renally dosed at 750 mA 1 then 500 mg every 48 hours He was getting amiodarone and d/w Dr Dexter switching to another antiarrhymic to avoid interaction with levofloxacin. 2. Continue meropenem 3. Patient is therapeutic with vancomycin, depending on cultures may give another vancomycin dose when level drops below 50 and if we isolate any resistant gram positives 4. Repeat blood cultures today Discussed with Dr. Dexter Current Visit: Yes Infectious Disease - PN: Subj Interval history: Patient is worse, he remains hypotensive and oliguric; today he has worsening respiratory distress and hypoxemia. He has not had any more fever. Infectious Disease Exam (PN) - Constitutional Vitals: Temp Pulse Resp BP Pulse Ox 98.1 F 136 H 43 H 130/91 92 L 01/14/17 04:00 01/14/17 09:30 01/14/17 09:30 01/14/17 09:30 01/14/17 09:30 General appearance: no acute distress, cachectic Exam: General appearance: Ill-looking but remains alert - Eye Eye exam: Present: EOMI. no icterus Pupils: Present: MARY - Respiratory Respiratory exam: Tachypnea, diffuse crepitations throughout the lungs - Cardiovascular Cardiovascular exam: regular rate and rhythm, no murmurs - GI/Abdominal GI/Abdominal exam: normal bowel sounds, soft, non-tender, no organomegaly or mass - Small amount of concentrated urine from Reilly catheter - Extremities Exam Extremities exam: Mild dependent edema to thighs - Skin Skin exam: no rash Results - Labs CBC & BMP: 01/14/17 04:50 01/14/17 04:50 Lab Results: I have reviewed the past 24 hour labs - Diagnostic Findings Procedure: Chest x-ray: report reviewed by me, image reviewed by me Quality Measures - Stroke Symptom Onset Unknown: No
[2017-01-14] MEDS ORDERED: LEVOFLOXACIN INJ 750 MG in PREMIX 1 EACH IV STA (10:16)
[2017-01-14] MEDS ORDERED: MIDAZOLAM 10 MG/2 ML VIAL ONE (10:18)
[2017-01-14] MEDS ORDERED: SUCCINYLCHOLINE 200 MG/10 ML VIAL ONE (10:19)
[2017-01-14] MEDS ORDERED: MIDAZOLAM 2 MG/2 ML VIAL IV ONE (10:20)
[2017-01-14] MEDS ORDERED: SUCCINYLCHOLINE 200 MG/10 ML VIAL IV ONE (10:20)
--- NOTE | 2017-01-14 10:35 | XRay Report ---
XR chest 1V portable Indication: SOB Comparison: Chest x-ray dated January 13, 2017 2:07 PM Technique: Single frontal view of the chest. Findings: The cardiomediastinal silhouette is stable in configuration. Lines and tubes appear grossly unchanged. Progressive bilateral mid and lower lung consolidation. Small pleural fluid not excluded. Visualized osseous and surrounding soft tissue structures appear grossly unchanged. IMPRESSION: As above. PROCEDURE INTERPRETED AT [facility] DEPARTMENT OF RADIOLOGY Final Report Signed by: Dr Jonny Bhatt
--- NOTE | 2017-01-14 10:46 | XRay Report ---
XR chest 1V portable Indication: Tube placement Comparison: Chest x-ray dated January 14, 2017 at 9:45 AM Technique: Single frontal view of the chest. Findings: Interval placement of endotracheal tube with tip at the clavicular level approximately 4.5 cm above the baljit. The cardiomediastinal silhouette is stable in configuration. Interval increased aeration of the lungs with continued bilateral mid and lower lung consolidation and question of small bilateral pleural fluid. Visualized osseous and surrounding soft tissue structures appear grossly unchanged. IMPRESSION: As above. PROCEDURE INTERPRETED AT [facility] DEPARTMENT OF RADIOLOGY Final Report Signed by: Dr Jonny Bhatt
[2017-01-14] MEDS: MEROPENEM 1,000 MG in SODIUM CHLORIDE 0.9% 100 ML IV SCH (10:52)
--- NOTE | 2017-01-14 10:55 | Hospitalist Progress Note ---
Assessment and Plan (1) Sepsis Status: Acute Assessment and plan: Sepsis secondary to gram-negative bacteremia with end organ dysfunction including hypotension, acute renal failure with acute tubular necrosis and tachycardia. Continue IV fluids and IV antibiotics. Lactic elevated but improving. Acute tubular necrosis Unchanged with minimal urine output. Patient intubated for airway safety and tachypnea with increased work of breathing and hypoxia. Current Visit: Yes (2) JOCE (acute kidney injury) Status: Acute Assessment and plan: With acute tubular necrosis secondary to hypotension. Requiring pressors. Current Visit: Yes (3) ATN (acute tubular necrosis) Status: Acute Assessment and plan: Likely secondary to sepsis and hypovolemia with hypotension. Continue IV fluids. nephrology consult placed Current Visit: Yes (4) Urethral injury Status: Acute Assessment and plan: Urology following. Reilly catheter in place. Current Visit: Yes Qualifiers: Encounter type: initial encounter Qualified Code(s): S37.30XA - Unspecified injury of urethra, initial encounter (5) Sacral decubitus wound Status: Acute Assessment and plan: Continue wound debridement and IV antibiotics. Wound culture positive for gram- negative rods. Current Visit: Yes (6) Cachexia Status: Acute Assessment and plan: Poor oral intake. Dietary consult. Consider NG tube for tube feedings. Current Visit: Yes (7) Gram-negative bacteremia Status: Acute Assessment and plan: Continue Merrem and Levaquin added. Follow-up sensitivities. Current Visit: Yes (8) Acute respiratory failure Status: Acute Assessment and plan: Patient required intubation this morning due to significant tachypnea with and shortness of breath with respiratory distress. He was dropping his oxygen saturations with any movement. Current Visit: Yes Hospitalist: Subjective Interval history: Patient seen and examined this morning and found to be in acute respiratory distress. He has minimal urine output and no significant change in his creatinine despite copious IV fluids. His CVP is 12. Chest x-ray shows bilateral lower lobe consolidation and evidence of fluid overload with pulmonary edema. He is tachypneic and hypoxic. Discussed the case with the sister in the waiting room and they have elected for intubation for management and protection of his airway. He remains tachycardic hypotensive requiring pressors and amiodarone. Case discussed with infectious disease on rounds. Exam - Constitutional Vitals: Period Temp Pulse Resp BP Sys/Dawn Pulse Ox Last 24 Hr 97.3 F-98.1 F 109-144 13-50 74-132/44-94 92-100 Exam: Constitutional System: Severe distress. No tremulousness. Thin, cachectic, ill -appearing. Head: Normocephalic, atraumatic. Ears, Nose and Throat System: No pain or tenderness. No epistaxis or discharge Eyes System: Pupils equal, round, and reactive. Extraocular muscles intact. Neck: Supple, without adenopathy, No jugular venous distention. Respiratory System: Chest rhonchi bilaterally to auscultation. Cardiovascular System: Heart with tachycardia. no murmur. GI System: Abdomen soft, nontender. Normo active bowel sounds present. Musculoskeletal System: limbs with no pedal edema. Full distal pulses. Sacral decubitus ulcer noted. Neurological System: Patient does not respond verbally. Psychiatric System: Unobtainable secondary to patient's mental status Results - Labs CBC & BMP: 01/14/17 04:50 01/14/17 04:50 Lab Results: I have reviewed the past 24 hour labs - Diagnostic Findings Procedure: Chest x-ray: image reviewed by me, report reviewed by me Quality Measures - Stroke Symptom Onset Unknown: No
[2017-01-14] MEDS ORDERED: DIGOXIN 0.5 MG/2 ML AMP IV ONE (11:00)
--- NOTE | 2017-01-14 11:28 | Event Note ---
Patient is postop day #2 status post excisional debridement of sacral wound. He has decompensated pulmonary edema and required intubation this morning. The RN has performed dressing change today already prior to intubation with reports the wound continues to improve without evidence of active drainage, malodor, or necrotic edges. Considering change the patient's status and the nurses addition to dressing, we will inspect the wound in the morning. Chart reviewed with leukocytosis CBC increased 42. Blood cultures 1 out of 2 gram-negative rods; culture with gram-negative rods; urine culture no growth preliminarily at 24 hours. Assessment and plan patient is postop day #2. We will inspect the wound in the morning. Continue current wound care at this time. Follow up on cultures and continue IV antibiotics. Patient currently on Merrem and Levaquin has been added per infectious disease.
[2017-01-14] MEDS: MIDAZOLAM 100 MG in SODIUM CHLORIDE 0.9% 80 ML IV SCH (11:44)
[2017-01-14 12:13] LABS: ABG Base Excess -7.7 MMOL/L (-2.5-2.5); ABG HCO3 18.2 MMOL/L (20-26); ABG Oxygen Saturation 99.3 % (95-100); ABG PCO2 28.6 MM HG (35-48); ABG PH 7.369 (7.35-7.45)
--- NOTE | 2017-01-14 12:36 | Event Note ---
Intubation note - Intubation Sedative: Versed Mg given sedative: 6 mg Paralytic: Succinylcholine Mg given paralytic: 100 mg Laryngoscope: [place] 4 ET Tube Size: 7.5 Tube Secured Depth (cm): 23 Tube Secured Location: Teeth Tube Placement Confirmation: visualized tube passing through cords, equal breath sounds bilaterally, no breath sounds over epigastrium, confirmation by capnometry, confirmation detector color change Patient tolerated procedure intubation: well, no complications Intubation Complications: None Additional Comments: Chest x-ray reviewed and position confirmed.
--- NOTE | 2017-01-14 12:54 | Pulmonology Consult Note ---
Assessment and Plan (1) Urinary tract infection Status: Acute Assessment and plan: This was an initial diagnosis but apparently his urine cultures negative. Current Visit: Yes (2) Sacral decubitus wound Status: Acute Assessment and plan: Has a large infected sacral decubitus wound with extended resistance to beta- lactamase Proteus growing in the cultures. It is sensitive to Levaquin and Merrem and he is on those. Current Visit: Yes (3) Schizophrenia Status: Acute Assessment and plan: Patient basically not responsive. Severe schizophrenia. I wonder if his decreased level of activity 6 months ago may have been related to schizophrenia medications Current Visit: Yes (4) Sepsis Status: Acute Assessment and plan: On broad-spectrum antibiotics. Has been given fluids. His acute kidney injury with creatinine up to 2.3 Current Visit: Yes (5) JOCE (acute kidney injury) Status: Acute Assessment and plan: Nephrology to see. Patient is getting vancomycin. Check cultures to be sure we need to continue that. Current Visit: Yes (6) Gram-negative bacteremia Status: Acute Assessment and plan: Await final identification. Current Visit: Yes (7) Acute respiratory failure Status: Acute Assessment and plan: I will follow for mechanical ventilation. PO2 is 206. We can reduce his FiO2. May be difficult to wean him with his mental status. Current Visit: Yes History of Present Illness Chief complaint: Respiratory failure History of present illness: Mr. Valenzuela is a 56 year old male with a history of severe schizophrenia. He apparently had about 6 months ago and has been incontinent of urine and stool. He has been able to eat however. He came in with a severe decubitus ulcer and sepsis. He got worse and had to be intubated. He has bilateral infiltrates on his x-ray looks like he may have aspirated. At present he is on the ventilator sedated and unresponsive. Unable to obtain any further history Home Medications Medication Instructions Recorded Confirmed Type Atorvastatin [Lipitor] 20 mg PO BEDTIME 01/12/17 01/12/17 History Benztropine Mesylate 0.5 mg PO BEDTIME 01/12/17 01/12/17 History Haloperidol [Haloperidol] 0.5 mg PO BEDTIME 01/12/17 01/12/17 History Ibuprofen [Ibuprofen] 600 mg PO Q6H PRN 01/12/17 01/12/17 History amLODIPine [Norvasc] 10 mg PO DAILY 01/12/17 01/12/17 History Allergies Allergy/AdvReac Type Severity Reaction Status Date / Time No Known Allergies Allergy Unverified 01/12/17 00:21 ROS unobtainable: due to endotracheal tube, due to mental status Exam (Pulmonay) H&P - Constitutional Vitals: Period Temp Pulse Resp BP Sys/Dawn Pulse Ox Last 24 Hr 97.3 F-98.5 F 109-144 13-50 71-132/42-94 92-100 Exam: Vital signs are normal. Systolic blood pressures around 110 on pressures. Pupils are small but reactive. His eyes stay tightly closed. Orotracheal tube in place. Neck supple no bruits. Chest reveals some rales in both bases and a few rhonchi. Heart rapid rate normal rhythm no murmurs. Abdomen soft nontender no masses. Extremities no clubbing cyanosis or edema. Bandage over his sacrum. Medical,Surgical,& Family Hx - Medical History Cardio: History of: Hypertension Endocrine: History of: Dyslipidemia - Family History Family History: Reports;: Family Hematology, Family Hypertension, Family Stroke - Social History Smoking Status: Never smoker Frequency of Alcohol Use: None Type of Drug Use: None Results - Labs CBC & BMP: 01/14/17 04:50 01/14/17 04:50 Lab Results: I have reviewed the past 24 hour labs - Diagnostic Findings Procedure: Chest x-ray: image reviewed by me (Bilateral lower lobe infiltrate worse on the left than the right. ET tube 4.5 cm above the baljit which is acceptable.) Quality Measures - Stroke Symptom Onset Unknown: No
[2017-01-14] MEDS: methylPREDNISolone SOD SUC 40 MG/1 ML VIAL IV SCH ×2 (13:07→21:15)
[2017-01-14] MEDS: SODIUM ACETATE 150 MEQ in DEXTROSE 5% 925 ML IV SCH (14:15)
[2017-01-14] MEDS: PHENYLEPHRINE DRIP 40 MG/250 ML PREMIX IV SCH ×2 (14:47→22:05)
[2017-01-14] MEDS ORDERED: FUROSEMIDE 40 MG/4 ML VIAL IV ONE (15:20)
[2017-01-14] MEDS ORDERED: VANCOMYCIN INJ 1,000 MG in SODIUM CHLORIDE 0.9% 250 ML IV ONE (16:00)
--- NOTE | 2017-01-14 16:02 | Ultrasound Report ---
US renal Bilateral Indication: Decreased urine output. Ultrasound kidneys: Grayson scale, color Doppler and pulse Doppler interrogation the kidneys performed. Right kidney 101 x 67 x 63 mm. Left kidney 95 x 56 x 54 mm. Both kidneys demonstrate echogenic renal parenchyma. There is no hydronephrosis, solid mass or calcification shown. In the left kidney, there is a 14 x 10 x 10 mm anechoic cyst at the midpole. Trace amount of ascites is present in the abdomen. Impression: 1. Increased echotexture of renal parenchyma noted symmetrically, suggesting severe medical renal disease. No obstruction present. 2. Small left renal cyst. 3. Trace amount of ascites. PROCEDURE INTERPRETED AT [facility] DEPARTMENT OF RADIOLOGY Final Report Signed by: Jeffy Ramírez M.D.
--- NOTE | 2017-01-14 16:13 | Nephrology Consult Note ---
History of Present Illness Chief complaint: Acute renal failure History of present illness: Mr. Valenzuela is a 56 year old male history of schizophrenia is cared for by his mother who is 90 and history of decubiti , UTI who transferred in from outside hospital for sepsis. The patient has been intubated today due to respiratory distress. The patient has a history of urethral trauma from placement of a Reilly catheter at outside facility. He has had a cystoscope done during this hospitalization with confirmation of that trauma but no evidence of other obstruction. Patient serum creatinine is trended up over the last several days to a creatinine of 2.6. Nephrology has been consulted for renal issues. Patient has been on multiple antibiotics due to the decubiti and urinary tract infection. Moreover, patient has had hypotensive episodes and has required pressor medications. He has required multiple boluses of fluid he is up several liters at this time. Home Medications Medication Instructions Recorded Confirmed Type Atorvastatin [Lipitor] 20 mg PO BEDTIME 01/12/17 01/12/17 History Benztropine Mesylate 0.5 mg PO BEDTIME 01/12/17 01/12/17 History Haloperidol [Haloperidol] 0.5 mg PO BEDTIME 01/12/17 01/12/17 History Ibuprofen [Ibuprofen] 600 mg PO Q6H PRN 01/12/17 01/12/17 History amLODIPine [Norvasc] 10 mg PO DAILY 01/12/17 01/12/17 History Allergies Allergy/AdvReac Type Severity Reaction Status Date / Time No Known Allergies Allergy Unverified 01/12/17 00:21 Medical,Surgical,& Family Hx - Medical History Cardio: History of: Hypertension Endocrine: History of: Dyslipidemia - Family History Family History: Reports;: Family Hematology, Family Hypertension, Family Stroke - Social History Smoking Status: Never smoker Frequency of Alcohol Use: None Type of Drug Use: None Review of Systems ROS unobtainable: due to endotracheal tube Exam - Vital Signs Vital signs: Period Temp Pulse Resp BP Sys/Dawn Pulse Ox Last 24 Hr 97.8 F-98.5 F 121-144 13-50 71-133/42-103 92-100 - General Appearance General appearance: well-developed, frail EENT: ATNC Neck: supple Respiratory: clear Cardiology: regular rate, regular rhythm Gastrointestinal: normoactive bowel sounds, no tenderness Results - Labs CBC & BMP: 01/14/17 04:50 06/21/17 04:50 Assessment and Plan (1) Urinary tract infection Status: Acute Assessment and plan: Broad-spectrum antibiotics. Will check a vancomycin level in a.m. Current Visit: Yes (2) Urethral injury Status: Acute Current Visit: Yes Qualifiers: Encounter type: initial encounter Qualified Code(s): S37.30XA - Unspecified injury of urethra, initial encounter (3) Febrile illness Status: Acute Current Visit: Yes (4) Sacral decubitus wound Status: Acute Current Visit: Yes (5) OJCE (acute kidney injury) Status: Acute Assessment and plan: Avoid nephrotoxic agents. Avoid NSAID medications. Understand patient is on vancomycin we will get a vancomycin level in a.m. Renal ultrasound has been done shows some increase at which tonicity consistent with underlying chronic kidney disease. No evidence of obstruction. Current Visit: Yes (6) ATN (acute tubular necrosis) Status: Acute Current Visit: Yes (7) Septic shock Status: Acute Current Visit: Yes
[2017-01-14] MEDS: DIGOXIN 0.5 MG/2 ML AMP IV SCH ×2 (16:22→23:14)
[2017-01-15] MEDS: INSULIN REGULAR 100 UNIT/ML SUBCUT SCH ×4 (00:10→18:11)
[2017-01-15] MEDS: SODIUM ACETATE 150 MEQ in DEXTROSE 5% 925 ML IV SCH ×3 (00:32→21:32)
[2017-01-15] MEDS: MORPHINE 2 MG/1 ML SYRINGE IV PRN ×2 (00:55→03:42)
[2017-01-15 04:10] LABS: ABG Base Excess -0.9 MMOL/L (-2.5-2.5); ABG HCO3 23.7 MMOL/L (20-26); ABG Oxygen Saturation 99.3 % (95-100); ABG PCO2 27.7 MM HG (35-48); ABG PH 7.495 (7.35-7.45); ABG TCO2 19.1 MMOL/L (23-27)
[2017-01-15] MEDS: methylPREDNISolone SOD SUC 40 MG/1 ML VIAL IV SCH ×3 (05:12→21:29)
[2017-01-15 05:19] LABS: Basophils # 0.1 10*3/uL (0.0-0.2); Basophils % 0.4 % (0.0-0.8); Hematocrit 31.7 VOL% (42.0-52.0); Hemoglobin 10.7 GM/DL (14.0-18.0); Immature Granulocytes % 2.3 %; Immature Granulocytes Absolute 0.82 #; Lymphocytes # 0.6 10*3/uL (1.4-4.0); Lymphocytes % 1.6 % (21.2-54.2); Mean Corpuscular HGB Conc 33.8 GM/DL (32-36); Mean Corpuscular Hemoglobin 27 PG (27-34); Mean Corpuscular Volume 80.7 FL (87-102); Mean Platelet Volume 12.9 FL (9.6-12.0); Monocytes # 0.7 10*3/uL (0.11-0.8); Monocytes % 1.9 % (1.7-12.7); Neutrophils # 33.3 10*3/uL (1.4-7.4); Neutrophils % 93.8 % (38.7-73.9); Red Blood Count 3.93 MC/CUMM (3.8-5.5); Red Cell Distribution Width 14.5 % (9.3-17.3); White Blood Count 35.4 T/CUMM (4-12)
[2017-01-15 05:34] LABS: Platelet Count 61 T/CUMM (130-400)
[2017-01-15 05:54] LABS: Band Neutrophils 4 % (0-10); Burr Cells 1+; Hypochromasia 1+; Lymphocytes 2 % (20-55); Ovalocytes Slight; Platelet Estimate Decreased; Segmented Neutrophils 91 % (50-85); Total Cells Counted 100
[2017-01-15 05:55] LABS: Microcytosis Slight
[2017-01-15 06:08] LABS: Albumin 1.8 G/DL (3.4-5.0); Calcium 6.9 MG/DL (8.5-10.1); Osmolality,Calculated 298.6 MOS/KG (273-304); Potassium 3.3 MMOL/L (3.5-5.1); Total Protein 4.7 G/DL (6.4-8.3)
[2017-01-15] MEDS: PHENYLEPHRINE DRIP 40 MG/250 ML PREMIX IV SCH ×2 (06:38→18:12)
--- NOTE | 2017-01-15 06:53 | Pulmonology Progress Note ---
Pulmonary - PN: Subj Interval history: This 56-year-old man has severe schizophrenia. Basically lying in the bed only eating over the last few weeks. Developed a severe pressure ulcer and has sepsis with gram-negative rods. He is on appropriate antibiotics. He is on the ventilator. His chest x-ray shows definite improvement today. His ABGs are improved. He is requiring less pressors. Exam (Progress Note) - Constitutional Vitals: Period Temp Pulse Resp BP Sys/Dawn Pulse Ox Last 24 Hr 97.2 F-98.8 F 91-141 13-50 71-155/42-112 92-100 Exam: Patient is unresponsive. Pupils small and reactive. Orotracheal tube in place. Neck is supple. Chest shows equal breath sounds. Heart normal rate and rhythm no murmurs. Abdomen is soft bowel sounds present. Extremities no clubbing cyanosis 1+ edema. Bandage over sacrum. Results - Labs CBC & BMP: 01/15/17 05:12 01/15/17 05:12 Lab Results: I have reviewed the past 24 hour labs - Diagnostic Findings Procedure: Chest x-ray: image reviewed by me (Lungs much better aerated today. ET tube in good position.) Assessment and Plan (1) Urinary tract infection Status: Acute Assessment and plan: This was an initial diagnosis but apparently his urine cultures negative. Current Visit: Yes (2) Sacral decubitus wound Status: Acute Assessment and plan: Has a large infected sacral decubitus wound with extended resistance to beta- lactamase Proteus growing in the cultures. It is sensitive to Levaquin and Merrem and he is on those. 01/15/2017 continuing antibiotic for infected sacral decubitus wound. Current Visit: Yes (3) Schizophrenia Status: Acute Assessment and plan: Patient basically not responsive. Severe schizophrenia. I wonder if his decreased level of activity 6 months ago may have been related to schizophrenia medications 01/13/2017 patient remains unresponsive. Current Visit: Yes (4) Sepsis Status: Acute Assessment and plan: On broad-spectrum antibiotics. Has been given fluids. His acute kidney injury with creatinine up to 2.3 01/13/2017 white count down from 42,000-35,000. Requiring less pressors. Continuing broad-spectrum antibiotics for what appears to be Proteus sepsis. Current Visit: Yes (5) JOCE (acute kidney injury) Status: Acute Assessment and plan: Nephrology to see. Patient is getting vancomycin. Check cultures to be sure we need to continue that. 01/15/2017 creatinine up to 2.8. Nephrology following. Current Visit: Yes (6) Gram-negative bacteremia Status: Acute Assessment and plan: Await final identification. 01/15/17 blood cultures not back yet. Growing Proteus from wound. Current Visit: Yes (7) Acute respiratory failure Status: Acute Assessment and plan: I will follow for mechanical ventilation. PO2 is 206. We can reduce his FiO2. May be difficult to wean him with his mental status. 01/15/2017 ABGs much improved. Will reduce settings. Will be difficult to wean because of mental status. Current Visit: Yes
--- NOTE | 2017-01-15 07:52 | Urology Progress Note ---
Urology - PN: Subj Interval history: Continue the Reilly catheter for now Exam - Constitutional Vitals: Period Temp Pulse Resp BP Sys/Dawn Pulse Ox Last 24 Hr 97.2 F-98.8 F 91-141 13-50 71-155/42-112 92-100 Results - Labs CBC & BMP: 01/15/17 05:12 01/15/17 05:12
--- NOTE | 2017-01-15 08:06 | XRay Report ---
History: Respiratory failure Date: 01/15/2017 Study: Chest x-ray AP portable Comparison exam: 01/14/2017 The endotracheal tube, feeding tube, and right IJ central line remain in satisfactory position. The cardiac silhouette is not enlarged. There is no mediastinal mass. The pulmonary vasculature is not engorged. There is some hazy and strandy atelectasis/infiltrate/edema in the lower lungs as before, though this is moderately improved. Skinfold overlies left hemithorax. There is no pleural effusion. Osseous structures are unchanged. Impression: Moderately improved aeration in the lung bases compared to the previous study PROCEDURE INTERPRETED AT [facility] DEPARTMENT OF RADIOLOGY Final Report Signed by: Dr. Renetta Buenrostro
[2017-01-15] MEDS: SODIUM HYPOCHLORITE 0.25% IRRIG 473 ML BOTTLE TOP SCH ×2 (09:00→21:30)
[2017-01-15] MEDS ORDERED: ALBUMIN 25% 25 GM in PREMIX 1 EACH IV ONE ×2 (09:20→18:32)
--- NOTE | 2017-01-15 09:30 | Nephrology Progress Note ---
Nephrology - PN: Subj Interval history: Patient's condition is about the same. He has had better urine output over the last 12 hours. Continuing to titrate down Levophed. We will give 25% albumin today. Serum creatinine is noted to be 2.8 today. Exam (PN)-Nephrology - Vital Signs Vital signs: Period Temp Pulse Resp BP Sys/Dawn Pulse Ox Last 24 Hr 97.2 F-98.8 F 91-140 13-43 71-155/42-112 92-100 - General Appearance General appearance: well-developed, intubated EENT: ATNC Neck: supple Respiratory: clear Cardiology: no edema, regular rate, regular rhythm Gastrointestinal: normoactive bowel sounds, no tenderness - Lab 01/15/17 05:12 01/15/17 05:12 Most recent lab results ABG pH 7.495 (7.35-7.45) H 01/15/17 03:48 ABG pCO2 27.7 MM HG (35-48) L 01/15/17 03:48 ABG pO2 153.0 MM HG (80-95) H 01/15/17 03:48 ABG HCO3 23.7 MMOL/L (20-26) 01/15/17 03:48 ABG O2 Saturation 99.3 % (95-100) 01/15/17 03:48 Calcium 6.9 MG/DL (8.5-10.1) L 01/15/17 05:12 Phosphorus 3.0 MG/DL (2.5-4.9) 01/14/17 04:50 Magnesium 1.9 MG/DL (1.8-2.4) 01/14/17 04:50 Assessment and Plan (1) Urinary tract infection Status: Acute Assessment and plan: Broad-spectrum antibiotics. Vancomycin level noted. Current Visit: Yes (2) Urethral injury Status: Acute Current Visit: Yes Qualifiers: Encounter type: initial encounter Qualified Code(s): S37.30XA - Unspecified injury of urethra, initial encounter (3) Febrile illness Status: Acute Current Visit: Yes (4) Sacral decubitus wound Status: Acute Current Visit: Yes (5) JOCE (acute kidney injury) Status: Acute Assessment and plan: Avoid nephrotoxic agents. Avoid NSAID medications. Renal ultrasound has been done shows some increased echogenicity consistent with underlying chronic kidney disease. No evidence of obstruction. Current Visit: Yes (6) ATN (acute tubular necrosis) Status: Acute Current Visit: Yes (7) Septic shock Status: Acute Current Visit: Yes
--- NOTE | 2017-01-15 10:01 | Infectious Disease Progress ---
Assessment and Plan (1) Febrile illness Status: Acute Assessment and plan: Suspect infected infected sacral wound is the cause. Patient actually in septic shock following his debridement, and bacteremic with gram-negative rods. Current Visit: Yes (2) Sacral decubitus wound Status: Acute Assessment and plan: Infected, likely polymicrobial. Patient today with septic shock and gram- negative bacteremia. Current Visit: Yes (3) JOCE (acute kidney injury) Status: Acute Assessment and plan: Acute kidney injury related to septic shock. Renal function slightly worse today so urine output has improved a bit. Continue to monitor. Nephrology following. Current Visit: Yes (4) Septic shock Status: Acute Assessment and plan: Septic shock with gram-negative bacteremia, source is the infected sacral decubitus ulcer. Recommendations: 1. Continue meropenem and levofloxacin 2. Follow-up gram-negative rods in blood plus repeat blood cultures from yesterday 3. Continue to hold vancomycin; will be redosed only 3 isolated gram positive for many of the cultures Current Visit: Yes Infectious Disease - PN: Subj Interval history: Patient now on the vent, still on pressors but being weaned down a bit since yesterday. Urine output somewhat better today. He has not had fever. Infectious Disease Exam (PN) - Constitutional Vitals: Temp Pulse Resp BP Pulse Ox 98.8 F 136 H 14 114/81 98 01/15/17 04:00 01/15/17 07:00 01/15/17 08:39 01/15/17 07:15 01/15/17 08:39 General appearance: no acute distress, cachectic Exam: General appearance: Sedated on vent - Eye Eye exam: Present: EOMI. no icterus Pupils: Present: Pupils constricted - Respiratory Respiratory exam: Lungs are clear today - Cardiovascular Cardiovascular exam: regular rate and rhythm, no murmurs - GI/Abdominal GI/Abdominal exam: normal bowel sounds, soft, non-tender, no organomegaly or mass - Clear urine from Reilly catheter - Extremities Exam Extremities exam: Mild dependent edema to thighs - Skin Skin exam: no rash Results - Labs CBC & BMP: 01/15/17 05:12 01/15/17 05:12 Lab Results: I have reviewed the past 24 hour labs (ID of gram-negative rods in blood not yet identified, ESBL Proteus from wound culture) Quality Measures - Stroke Symptom Onset Unknown: No
--- NOTE | 2017-01-15 10:26 | Hospitalist Progress Note ---
Assessment and Plan (1) Sepsis Status: Acute Assessment and plan: Sepsis secondary to gram-negative bacteremia with end organ dysfunction including hypotension, acute renal failure with acute tubular necrosis and tachycardia. Continue IV fluids and IV antibiotics. Patient intubated for airway safety and tachypnea with increased work of breathing and hypoxia. Nephrology, infectious disease, surgery following Sepsis due to Proteus species Continue Levaquin and Merrem Current Visit: Yes (2) JOCE (acute kidney injury) Status: Acute Assessment and plan: With acute tubular necrosis secondary to hypotension. Requiring pressors. Nephrology following. Lasix given yesterday. Bicarb drip initiated. Current Visit: Yes (3) ATN (acute tubular necrosis) Status: Acute Assessment and plan: Likely secondary to sepsis and hypovolemia with hypotension. Continue IV fluids. nephrology consult placed Current Visit: Yes (4) Urethral injury Status: Acute Assessment and plan: Urology following. Reilly catheter in place. Current Visit: Yes Qualifiers: Encounter type: initial encounter Qualified Code(s): S37.30XA - Unspecified injury of urethra, initial encounter (5) Sacral decubitus wound Status: Acute Assessment and plan: Continue wound debridement and IV antibiotics. Wound culture positive for gram- negative rods. Current Visit: Yes (6) Cachexia Status: Acute Assessment and plan: Poor oral intake. Dietary consult. Consider NG tube for tube feedings. Current Visit: Yes (7) Gram-negative bacteremia Status: Acute Assessment and plan: Continue Merrem and Levaquin added. Follow-up sensitivities. Current Visit: Yes (8) Acute respiratory failure Status: Acute Assessment and plan: Patient required intubation this morning due to significant tachypnea with and shortness of breath with respiratory distress. He was dropping his oxygen saturations with any movement. Current Visit: Yes Hospitalist: Subjective Interval history: Patient seen and examined. No acute events overnight. Case discussed with nursing staff. Labs reviewed. Improved urine output after Lasix. Remains on Lam-Synephrine and Levophed. Sacral decubitus wound culture with Proteus mirabilis ESBL. Sensitive to Merrem and Levaquin. Exam - Constitutional Vitals: Period Temp Pulse Resp BP Sys/Dawn Pulse Ox Last 24 Hr 97.2 F-98.8 F 91-140 13-18 71-155/42-112 96-100 Exam: Constitutional System: Mild distress. No tremulousness. Thin, cachectic, ill- appearing. Intubated and sedated Head: Normocephalic, atraumatic. Ears, Nose and Throat System: No pain or tenderness. No epistaxis or discharge. endotracheal tube in place. Eyes System: Pupils equal, round, and reactive. Extraocular muscles intact. Neck: Supple, without adenopathy, No jugular venous distention. Respiratory System: Chest clear bilaterally to auscultation. Cardiovascular System: Heart with tachycardia. no murmur. GI System: Abdomen soft, nontender. Normo active bowel sounds present. Musculoskeletal System: limbs with no pedal edema. Full distal pulses. Sacral decubitus ulcer noted. Neurological System: Unable to obtain secondary to patient's condition Psychiatric System: Unobtainable secondary to patient's mental status Results - Labs CBC & BMP: 01/15/17 05:12 01/15/17 05:12 Lab Results: I have reviewed the past 24 hour labs - Diagnostic Findings Procedure: Chest x-ray: image reviewed by me, report reviewed by me Quality Measures - Stroke Symptom Onset Unknown: No
[2017-01-15] MEDS: MULTIVITAMIN LIQUID (CENTRUM) 60 ML BOTTLE PO SCH (10:38)
[2017-01-15] MEDS: ENOXAPARIN 40 MG/0.4 ML SYRINGE SUBCUT SCH (10:39)
[2017-01-15] MEDS: PANTOPRAZOLE 40 MG VIAL IV SCH (10:39)
[2017-01-15] MEDS: DIGOXIN 0.5 MG/2 ML AMP IV SCH (10:40)
[2017-01-15] MEDS: PANTOPRAZOLE 40 MG TABLET PO SCH (10:40)
[2017-01-15] MEDS: MEROPENEM 1,000 MG in SODIUM CHLORIDE 0.9% 100 ML IV SCH (10:49)
[2017-01-15] MEDS ORDERED: POTASSIUM CHLORIDE RIDER 100 ML IV ONE ×4 (11:04→11:05)
[2017-01-15] MEDS: POTASSIUM CHLORIDE RIDER 10 MEQ in PREMIX 1 EACH IV SCH ×4 (11:15→14:18)
--- NOTE | 2017-01-15 11:53 | Event Note ---
Patient is postop day #3 status post excisional debridement of sacral wound. Patient is currently intubated and sedated. No events overnight Vitals: Afebrile Sacral wound inspected with superior edges with early evidence of necrosis; wound bed without granulation tissue present although this overall clean and dry with a central area of exudate approximately 1 cm in diameter. No malodor or drainage noted. No bone exposure. Chart reviewed with leukocytosis improved with WBC decreased to 35.4. Blood cultures 1/3 Enterobacter cloacae; will culture ESBL Proteus; urine culture no growth preliminarily at 24 hours. Assessment and plan patient is postop day #3. Patient with Proteus on wound cultures; continues on meropenem and Levaquin per infectious disease. We will continue local wound care at this time.
[2017-01-15] MEDS ORDERED: FUROSEMIDE 40 MG/4 ML VIAL IV ONE (15:30)
[2017-01-15] MEDS: METOCLOPRAMIDE 10 MG/2 ML VIAL IV SCH ×2 (18:09→23:38)
[2017-01-15] MEDS: MIDAZOLAM 100 MG in SODIUM CHLORIDE 0.9% 80 ML IV SCH (18:12)
[2017-01-15] MEDS ORDERED: FUROSEMIDE 40 MG/4 ML VIAL IV PRN (18:32)
[2017-01-16] MEDS: INSULIN REGULAR 100 UNIT/ML SUBCUT SCH ×2 (01:59→06:18)
[2017-01-16 02:51] LABS: ABG HCO3 29.2 MMOL/L (20-26); ABG PCO2 33.4 MM HG (35-48); ABG PH 7.533 (7.35-7.45); Allen Test Positive; Pt O2 Delivery Device Ventilator
[2017-01-16 02:52] LABS: ABG Base Excess 5.3 MMOL/L (-2.5-2.5); ABG Oxygen Saturation 98.3 % (95-100)
[2017-01-16] MEDS: PHENYLEPHRINE DRIP 40 MG/250 ML PREMIX IV SCH (04:01)
[2017-01-16] MEDS: MORPHINE 2 MG/1 ML SYRINGE IV PRN (05:01)
[2017-01-16 05:03] LABS: Basophils # 0.1 10*3/uL (0.0-0.2); Basophils % 0.3 % (0.0-0.8); Hematocrit 23.8 VOL% (42.0-52.0); Immature Granulocytes % 10.2 %; Immature Granulocytes Absolute 3.15 #; Lymphocytes # 0.7 10*3/uL (1.4-4.0); Lymphocytes % 2.3 % (21.2-54.2); Mean Corpuscular HGB Conc 33.6 GM/DL (32-36); Mean Corpuscular Hemoglobin 27 PG (27-34); Mean Corpuscular Volume 80.4 FL (87-102); Mean Platelet Volume 13.5 FL (9.6-12.0); Monocytes % 3.1 % (1.7-12.7); Neutrophils # 26.1 10*3/uL (1.4-7.4); Neutrophils % 84.1 % (38.7-73.9); Platelet Count 44 T/CUMM (130-400); Red Blood Count 2.96 MC/CUMM (3.8-5.5); Red Cell Distribution Width 14.4 % (9.3-17.3)
--- NOTE | 2017-01-16 05:45 | Pulmonology Progress Note ---
Pulmonary - PN: Subj Interval history: This 56-year-old man has severe schizophrenia. Basically lying in the bed only eating over the last few weeks. Developed a severe pressure ulcer and has sepsis with gram-negative rods. He is on appropriate antibiotics. He is on the ventilator. His chest x-ray shows definite improvement today. His ABGs are improved. He is requiring less pressors. 01/16/2017 patient is tolerating CPAP. Nurse got him to squeeze fingers with his left hand one time yesterday but unable to get him to follow commands. He is not on any sedation. Chest x-ray has shown definite improvement. He has grown Enterobacter from his blood culture, and Proteus from the wound. Both are sensitive to both Levaquin and Merrem. Plans are for him to transfer to [facility] today. Will be prolonged weaning as well as wound care. Exam (Progress Note) - Constitutional Vitals: Period Temp Pulse Resp BP Sys/Dawn Pulse Ox Last 24 Hr 97.3 F-99.2 F 60-136 7-25 65-144/42-96 97-100 Exam: Patient is unresponsive. Pupils small and reactive. Orotracheal tube in place. Neck is supple. Chest shows equal breath sounds. Heart normal rate and rhythm no murmurs. Abdomen is soft bowel sounds present. Extremities no clubbing cyanosis 1+ edema. Bandage over sacrum. Little change from yesterday. Results - Labs CBC & BMP: 01/16/17 04:57 01/15/17 05:12 Lab Results: I have reviewed the past 24 hour labs - Diagnostic Findings Procedure: Chest x-ray: image reviewed by me (Minimal left basilar infiltrate. Well-expanded. ET tube good position. Overall x-ray improved.) Assessment and Plan (1) Urinary tract infection Status: Acute Assessment and plan: This was an initial diagnosis but apparently his urine cultures negative. Current Visit: Yes (2) Sacral decubitus wound Status: Acute Assessment and plan: Has a large infected sacral decubitus wound with extended resistance to beta- lactamase Proteus growing in the cultures. It is sensitive to Levaquin and Merrem and he is on those. 01/15/2017 continuing antibiotic for infected sacral decubitus wound. 01/16/2017 had infected sacral decubitus wound which has been debrided. Grew Proteus from it. On appropriate antibiotics. Will need extensive wound care. Current Visit: Yes (3) Schizophrenia Status: Acute Assessment and plan: Patient basically not responsive. Severe schizophrenia. I wonder if his decreased level of activity 6 months ago may have been related to schizophrenia medications 01/15/2017 patient remains unresponsive. 01/16/2017 patient remains unresponsive. This will complicate weaning trials. Current Visit: Yes (4) Sepsis Status: Acute Assessment and plan: On broad-spectrum antibiotics. Has been given fluids. His acute kidney injury with creatinine up to 2.3 01/15/2017 white count down from 42,000-35,000. Requiring less pressors. Continuing broad-spectrum antibiotics for what appears to be Proteus sepsis. 01/16/2017 sepsis is controlled. Current Visit: Yes (5) JOCE (acute kidney injury) Status: Acute Assessment and plan: Nephrology to see. Patient is getting vancomycin. Check cultures to be sure we need to continue that. 01/15/2017 creatinine up to 2.8. Nephrology following. 01/16/2017 chemistries pending. Will need nephrology to follow at LT as well. Current Visit: Yes (6) Gram-negative bacteremia Status: Acute Assessment and plan: Await final identification. 01/15/17 blood cultures not back yet. Growing Proteus from wound. 01/16/2017 blood culture grew Enterobacter. Both organisms are sensitive to Levaquin and Merrem. Current Visit: Yes (7) Acute respiratory failure Status: Acute Assessment and plan: I will follow for mechanical ventilation. PO2 is 206. We can reduce his FiO2. May be difficult to wean him with his mental status. 01/15/2017 ABGs much improved. Will reduce settings. Will be difficult to wean because of mental status. 01/16/2017 ABGs look good. Continuing with CPAP. Would like to see improvement in mental status before planned for extubation could be made Current Visit: Yes
[2017-01-16 05:52] LABS: Band Neutrophils 6 % (0-10); Lymphocytes 3 % (20-55); Metamyelocytes 1 %; Segmented Neutrophils 84 % (50-85); Total Cells Counted 100
[2017-01-16 05:53] LABS: Burr Cells 1+; Hypochromasia 1+; Microcytosis 1+
[2017-01-16 05:54] LABS: Acanthocytes Few; Platelet Estimate Decreased
[2017-01-16 05:59] LABS: Calcium 7.1 MG/DL (8.5-10.1); Magnesium 1.7 MG/DL (1.8-2.4); Osmolality,Calculated 300.7 MOS/KG (273-304); Potassium 3.2 MMOL/L (3.5-5.1)
[2017-01-16] MEDS: methylPREDNISolone SOD SUC 40 MG/1 ML VIAL IV SCH (06:19)
[2017-01-16] MEDS: METOCLOPRAMIDE 10 MG/2 ML VIAL IV SCH (06:22)
--- NOTE | 2017-01-16 06:56 | XRay Report ---
XR chest 1V portable Indication: Shortness of breath Comparison: 15 January 2017 Findings: The heart and mediastinum are stable in size and configuration. The lines and tubes are unchanged in position. The pulmonary vascularity is mildly prominent but similar to previous exam. No lung infiltrates, effusions, pneumothorax or other abnormality is demonstrated. Impression: No significant change PROCEDURE INTERPRETED AT [facility] DEPARTMENT OF RADIOLOGY Final Report Signed by: Dr. Nikolay Pringle
--- NOTE | 2017-01-16 07:32 | Urology Progress Note ---
Urology - PN: Subj Interval history: Will not give the patient a trial of voiding until his condition improves Exam - Constitutional Vitals: Period Temp Pulse Resp BP Sys/Dawn Pulse Ox Last 24 Hr 97.3 F-99.2 F 60-118 7-25 65-139/42-95 97-100 Results - Labs CBC & BMP: 01/16/17 04:57 01/16/17 04:57
[2017-01-16] MEDS: SODIUM ACETATE 150 MEQ in DEXTROSE 5% 925 ML IV SCH (07:40)
--- NOTE | 2017-01-16 08:30 | Nephrology Progress Note ---
Nephrology - PN: Subj Interval history: The patient's condition is about the same. Serum creatinine is now 2.7. Which is a slow trend downward. Hematocrit noted will probably need packed red blood cells today. Exam (PN)-Nephrology - Vital Signs Vital signs: Period Temp Pulse Resp BP Sys/Dawn Pulse Ox Last 24 Hr 97.3 F-98.8 F 60-118 7-25 65-139/42-95 97-100 - General Appearance General appearance: intubated, frail EENT: ATNC Neck: supple Respiratory: clear Cardiology: regular rate, regular rhythm Gastrointestinal: normoactive bowel sounds, no tenderness - Lab 01/16/17 04:57 01/16/17 04:57 Most recent lab results ABG pH 7.533 (7.35-7.45) H 01/16/17 02:30 ABG pCO2 33.4 MM HG (35-48) L 01/16/17 02:30 ABG pO2 108.0 MM HG (80-95) H 01/16/17 02:30 ABG HCO3 29.2 MMOL/L (20-26) H 01/16/17 02:30 ABG O2 Saturation 98.3 % (95-100) 01/16/17 02:30 Calcium 7.1 MG/DL (8.5-10.1) L 01/16/17 04:57 Phosphorus 3.0 MG/DL (2.5-4.9) 01/14/17 04:50 Magnesium 1.7 MG/DL (1.8-2.4) L 01/16/17 04:57 Assessment and Plan (1) Urinary tract infection Status: Acute Assessment and plan: Broad-spectrum antibiotics. Current Visit: Yes (2) Urethral injury Status: Acute Current Visit: Yes Qualifiers: Encounter type: initial encounter Qualified Code(s): S37.30XA - Unspecified injury of urethra, initial encounter (3) Febrile illness Status: Acute Current Visit: Yes (4) Sacral decubitus wound Status: Acute Current Visit: Yes (5) JOCE (acute kidney injury) Status: Acute Assessment and plan: Avoid nephrotoxic agents. Avoid NSAID medications. Evidence of chronic kidney disease by renal ultrasound. Serum creatinine is 2.7.. Current Visit: Yes (6) ATN (acute tubular necrosis) Status: Acute Current Visit: Yes (7) Septic shock Status: Acute Current Visit: Yes
[2017-01-16] MEDS: ENOXAPARIN 40 MG/0.4 ML SYRINGE SUBCUT SCH (08:35)
[2017-01-16] MEDS: PANTOPRAZOLE 40 MG VIAL IV SCH (08:35)
[2017-01-16] MEDS: MULTIVITAMIN LIQUID (CENTRUM) 60 ML BOTTLE PO SCH (08:35)
--- NOTE | 2017-01-16 08:44 | Hospitalist Progress Note ---
Assessment and Plan (1) Sacral decubitus wound Status: Chronic Assessment and plan: Chronic with multiple debridement. Bacteremic episode with Enterobacter cloaca with development of systemic inflammatory response syndrome and septic shock. Current Visit: Yes (2) Schizophrenia Status: Chronic Assessment and plan: Bedfast with pressure associated injuries Current Visit: Yes (3) JOCE (acute kidney injury) Status: Acute Assessment and plan: Gradual reversal during the course of hospitalization Current Visit: Yes Hospitalist: Subjective Interval history: 56-year-old male schizophrenic bedbound with purulent pressure ulceration on the sacrum. He had presented with fever with subsequent blood culture positive for Enterobacter awake. He required endotracheal intubation yesterday due to respiratory distress. His chest x-ray was unremarkable postintubation and he is oxygenating well. He continues to have a prominent leukocytosis with gradually improved serum creatinine level. He has had progressive thrombocytopenia since admission. He continues on mechanical ventilation with depressed level of conscious with the requirement for pressor support. Exam - Constitutional Vitals: Period Temp Pulse Resp BP Sys/Dawn Pulse Ox Last 24 Hr 97.3 F-98.8 F 60-118 7-25 65-139/42-91 97-100 General appearance: under weight - Respiratory Respiratory exam: Absent: rales, rhonchi, wheezes - Cardiovascular Cardiovascular exam: Present: regular rate and rhythm - GI/Abdominal GI/Abdominal exam: Present: normal bowel sounds. Absent: distended, rebound - Extremities Exam Extremities exam: Absent: edema - Neurological Exam Neurological exam: Absent: alert Results - Labs CBC & BMP: 01/16/17 04:57 01/16/17 04:57 Labs: PH 7.53 PCO2 33 PO2 108 PO2/FiO2 360 - Diagnostic Findings Procedure: Chest x-ray: image reviewed by me (Largely clear with large amount of splenic flexure gas and stool) Quality Measures - Stroke Symptom Onset Unknown: No
--- NOTE | 2017-01-16 09:20 | Discharge Summary ---
Hospital Course - Hospital Course Hospital Course: 56-year-old schizophrenia bedbound with purulent pressure ulceration of the sacrum had presented with fever with subsequent blood cultures demonstrating Enterobacter cloacae. He required intubation on 15 January due to respiratory distress. His chest x-ray was unremarkable with adequate oxygenation with mechanical ventilation. He has a severe leukocytosis with progressively improving elevated creatinine level with progressive thrombocytopenia since admission. He is requiring pressor support and made criteria for bacteremic systemic inflammatory response syndrome with septic shock. He has been medically stabilized and is anticipated for transfer to LTAC today. Diagnosis - Discharge Diagnosis (1) Sacral decubitus wound Status: Chronic (2) Schizophrenia Status: Chronic (3) JOCE (acute kidney injury) Status: Acute Discharge Plan - Discharge Data Disposition: Disch/Xfer-[facility] Term Hos Condition at Discharge: Stable - Discharge Medications New Acetaminophen Supp [Tylenol Supp] 650 mg RECTAL Q4H PRN supp PRN Reason: Fever Acetaminophen Tab [Tylenol Tab] 650 mg PO Q4H PRN tablet PRN Reason: fever, headache/body aches Dextrose 50% [D50] 25 gm IV PRN PRN vial PRN Reason: Hypoglycemia with IV access Enoxaparin [Lovenox] 40 mg SUBCUT Q24H syringe Glucagon 1 mg IM PRN PRN vial PRN Reason: Hypoglycemia w/o IV access Insulin Regular [HumuLIN R] See Protocol SUBCUT Q6HR unit Levofloxacin Inj [Levaquin Inj] 500 mg IV Q48H Meropenem [Merrem] 1,000 mg IV Q24H vial Metoclopramide Inj [Reglan Inj] 5 mg IV Q6HR vial Midazolam [Versed] 100 mg IV TITRATE vial Morphine Inj 2 mg IV Q2H PRN syringe PRN Reason: Pain Severe (8-10) Multivitamin Liquid (Centrum) [Centrum Liquid] 15 ml PO DAILY bottle Norepinephrine [Levophed] 16 mg IV TITRATE vial Pantoprazole Inj [Protonix Inj] 40 mg IV DAILY vial Sodium Acetate 150 meq IV .Q10H vial Sodium Hypochlorite 0.25% Irr [Dakins 1/2 Strength 0.25% Soln] 1 applic TOP BID applic Vancomycin Inj 1,000 mg IV Q12H vial Furosemide Inj [Lasix Inj] 60 mg IV ONCE PRN vial PRN Reason: UOP <30 for 2 hours methylPREDNISolone SOD SUC INJ [SoluMEDROL] 40 mg IV Q8H vial Morphine Inj 1 mg IV Q3H PRN syringe PRN Reason: Pain Severe (8-10) Ondansetron Inj [Zofran Inj] 4 mg IV Q4H PRN vial PRN Reason: Nausea Discontinued amLODIPine [Norvasc] 10 mg PO DAILY Ibuprofen [Ibuprofen] 600 mg PO Q6H PRN PRN Reason: Pain Mild (1-3) And/Or Fever Benztropine Mesylate 0.5 mg PO BEDTIME Haloperidol [Haloperidol] 0.5 mg PO BEDTIME Atorvastatin [Lipitor] 20 mg PO BEDTIME - Follow Up or Referral - Forms/Instructions Exam - Constitutional Vitals: Period Temp Pulse Resp BP Sys/Dawn Pulse Ox Last 24 Hr 97.3 F-98.8 F 60-118 7-25 71-139/49-91 97-100 Discharge Results Procedures and tests throughout hospitalization: Pending Orders 01/12/17 07:50 Blood Culture Stat 01/12/17 07:52 Blood Culture Stat 01/14/17 10:46 Blood Culture Stat 01/17/17 04:00 Basic Metabolic Panel w/Mg IN AM Comp Blood Count Auto Diff IN AM Labs on day of discharge: Labs from last 24 hours 01/16/17 01/16/17 01/16/17 05:33 04:57 04:57 WBC 31.0 H RBC 2.96 L D Hgb 8.0 L D Hct 23.8 L MCV 80.4 L MCH 27 MCHC 33.6 RDW 14.4 Plt Count 44 L D MPV 13.5 H Neut % (Auto) 84.1 H Lymph % (Auto) 2.3 L [place] % (Auto) 3.1 Eos % (Auto) 0.0 Baso % (Auto) 0.3 Neut # (Auto) 26.1 H Lymph # (Auto) 0.7 L [place] # (Auto) 1.0 H Eos # (Auto) 0.0 Baso # (Auto) 0.1 Total Counted 100 Immature Gran % 10.2 Nucleated RBC % 0.0 Immature Gran # 3.15 Segmented Neutrophils 84 Band Neutrophils 6 Lymphocytes 3 L Monocytes 6 Metamyelocytes 1 Nucleated RBCs # 0.00 Platelet Estimate Decreased Hypochromasia 1+ Microcytosis 1+ Jim Cells 1+ Acanthocytes (Spur) Few ABG pH ABG pCO2 ABG pO2 ABG HCO3 ABG Total CO2 ABG O2 Saturation ABG Base Excess FiO2 Sodium 145 Potassium 3.2 L Chloride 107 Carbon Dioxide 30 Anion Gap 11.2 BUN 33 H Creatinine 2.70 H GFR Calculation 32 BUN/Creatinine Ratio 12.00 Glucose 207 H POC Glucose 196 H Calculated Osmolality 300.7 Calcium 7.1 L Magnesium 1.7 L 01/16/17 01/15/17 01/15/17 02:30 23:30 17:41 WBC RBC Hgb Hct MCV MCH MCHC RDW Plt Count MPV Neut % (Auto) Lymph % (Auto) [place] % (Auto) Eos % (Auto) Baso % (Auto) Neut # (Auto) Lymph # (Auto) [place] # (Auto) Eos # (Auto) Baso # (Auto) Total Counted Immature Gran % Nucleated RBC % Immature Gran # Segmented Neutrophils Band Neutrophils Lymphocytes Monocytes Metamyelocytes Nucleated RBCs # Platelet Estimate Hypochromasia Microcytosis Jim Cells Acanthocytes (Spur) ABG pH 7.533 H ABG pCO2 33.4 L ABG pO2 108.0 H ABG HCO3 29.2 H ABG Total CO2 26.0 ABG O2 Saturation 98.3 ABG Base Excess 5.3 H FiO2 30.00 Sodium Potassium Chloride Carbon Dioxide Anion Gap BUN Creatinine GFR Calculation BUN/Creatinine Ratio Glucose POC Glucose 145 H 119 H Calculated Osmolality Calcium Magnesium 01/15/17 11:09 WBC RBC Hgb Hct MCV MCH MCHC RDW Plt Count MPV Neut % (Auto) Lymph % (Auto) [place] % (Auto) Eos % (Auto) Baso % (Auto) Neut # (Auto) Lymph # (Auto) [place] # (Auto) Eos # (Auto) Baso # (Auto) Total Counted Immature Gran % Nucleated RBC % Immature Gran # Segmented Neutrophils Band Neutrophils Lymphocytes Monocytes Metamyelocytes Nucleated RBCs # Platelet Estimate Hypochromasia Microcytosis [place] Cells Acanthocytes (Spur) ABG pH ABG pCO2 ABG pO2 ABG HCO3 ABG Total CO2 ABG O2 Saturation ABG Base Excess FiO2 Sodium Potassium Chloride Carbon Dioxide Anion Gap BUN Creatinine GFR Calculation BUN/Creatinine Ratio Glucose POC Glucose 171 H Calculated Osmolality Calcium Magnesium Preliminary micro results at discharge 01/14/17 10:46 Blood Culture - Preliminary Blood No growth at 1 day 01/14/17 10:46 Blood Culture - Preliminary Blood No growth at 1 day 01/12/17 07:50 Blood Culture - Preliminary Blood No growth at 3 days 01/12/17 07:52 Blood Culture - Preliminary Blood No growth at 3 days DS: Provider Date of admission: 01/12/17 02:41 Primary care physician: . No PCP Attending physician on admission: Jeffy Braun MD Consults: 01/12/17 02:41 Consult to Physician [CONS] Routine Comment: trama to urethra Consulting Provider: Marcial Pollard Person Notified: md sosa Date Notified: 01/12/17 Time Notified: 08:52 01/12/17 02:44 Consult to Wound Care - [place] [CONS] Routine Reason for Wound Care: Wound Care Management 01/12/17 02:46 Consult to Case Mgmt/Social Srvs [CONS] Routine Reason for Case Mgmt/Social Srvs: Swingbed/SNF/Long-Term 01/12/17 06:54 Consult to Dietitian [CONS] Routine Reason for Dietitian: Dietary Consult 01/12/17 08:59 Consult to Physician [CONS] Routine Comment: Consulting Provider: Joni Saucedo Jr. Person Notified: [email or web address] Date Notified: 01/12/17 Time Notified: 09:29 01/12/17 09:55 Consult to Physician [CONS] Routine Comment: Consulting Provider: Kim Gilliam Consult to Specialist Group: Infectious Disease Person Notified: [email or web address] Date Notified: 01/12/17 Time Notified: 10:18 01/12/17 11:53 Consult to Pharmacy [CONS] Routine Reason for Pharmacy Consult: Dose/Manage Vancomycin 01/12/17 13:09 Consult to Dietitian [CONS] Routine Reason for Dietitian: Dietary Consult 01/13/17 08:54 Consult to Dietitian [CONS] Routine Reason for Dietitian: TF-Initiate/Manage 01/14/17 07:40 Consult to Physician [CONS] Routine Comment: [id number] Consulting Provider: Sharif Pitts Jr. Consulting Provider Notified: Yes Consult to Specialist Group: Nephrology Person Notified: [email or web address] Date Notified: 01/14/17 Time Notified: 08:40 01/14/17 10:32 Consult to Case Mgmt/Social Srvs [CONS] Routine Reason for Case Mgmt/Social Srvs: LTAC Consult to Physician [CONS] Routine Comment: respiratory failure Consulting Provider: Pete Pérez 01/14/17 11:28 Consult to Wound Care - [place] [CONS] Routine Reason for Wound Care: Wound Care Management Consult Comment: right hip wound Discharging clinician: Missael Ruiz MD Expected date of discharge: 01/16/17
[2017-01-16] MEDS: SODIUM HYPOCHLORITE 0.25% IRRIG 473 ML BOTTLE TOP SCH (09:23)
[2017-01-16] MEDS: MEROPENEM 1,000 MG in SODIUM CHLORIDE 0.9% 100 ML IV SCH (09:23)
[2017-01-16] MEDS: NOREPINEPHRINE 16 MG in SODIUM CHLORIDE 0.9% 234 ML IV SCH (09:24)
--- NOTE | 2017-01-16 10:16 | Infectious Disease Progress ---
Assessment and Plan (1) Febrile illness Status: Acute Assessment and plan: Infected infected sacral wound is the cause, associated with bacteremia. Current Visit: Yes (2) Sacral decubitus wound Status: Chronic Current Visit: Yes (3) JOCE (acute kidney injury) Status: Acute Assessment and plan: Acute kidney injury related to septic shock. Renal function incrementally better today. Current Visit: Yes (4) Septic shock Status: Acute Assessment and plan: Septic shock with Enterobacter bacteremia, source is the infected sacral decubitus ulcer. Patient clinically improved. Recommendations: 1. Continue escalate from meropenem back to Zosyn 2. Stop levofloxacin and vancomycin 3. Follow-up repeat blood cultures 4. Wound care I will follow patient at [facility] Current Visit: Yes Infectious Disease - PN: Subj Interval history: Patient doing relatively okay, hemodynamically stable. Apparently he has been responding following simple commands but I never got him to follow commands, he was not following commands before he was on the vent on the regular floor. No fever. He is getting ready to go to [facility] today. Infectious Disease Exam (PN) - Constitutional Vitals: Temp Pulse Resp BP Pulse Ox 97.6 F 64 14 105/72 100 01/16/17 08:00 01/16/17 09:00 01/16/17 09:09 01/16/17 09:45 01/16/17 09:00 General appearance: under weight Exam: General appearance: Comfortable, did not open eyes to his name but squeeze eyelid discharge when I tried to open eyes - Eye Eye exam: Present: EOMI. no icterus - Respiratory Respiratory exam: Lungs are clear today - Cardiovascular Cardiovascular exam: regular rate and rhythm, no murmurs - GI/Abdominal GI/Abdominal exam: normal bowel sounds, soft, non-tender, no organomegaly or mass - Clear urine from Reilly catheter - Extremities Exam Extremities exam: Mild dependent edema to thighs - Skin Skin exam: no rash Results - Labs CBC & BMP: 01/16/17 04:57 01/16/17 04:57 Lab Results: I have reviewed the past 24 hour labs (Enterobacter cloaca isolated from blood, repeat blood cultures negative to date) - Diagnostic Findings Procedure: Chest x-ray: image reviewed by me, report reviewed by me (Decreased pulmonary edema) Quality Measures - Stroke Symptom Onset Unknown: No Specialty Discharge - Follow Up or Referrals
[2017-01-16] MEDS ORDERED: LEVOFLOXACIN INJ 500 MG in PREMIX 1 EACH IV SCH (10:30)
[2017-01-16] MEDS ORDERED: PIPERACILLIN/TAZOBACTAM 3,375 MG in SODIUM CHLORIDE 0.9% 100 ML IV SCH (10:30)
--- NOTE | 2017-01-16 11:04 | Event Note ---
I took down the dressing today. Exploring in the sacral wound I do not see active signs of infection at this point or progressive necrosis. I would continue with dressing changes and pressure reduction as you are doing.
[2017-01-16 12:08] VITALS: BP 104/76
== END 2017-01-16 12:07 | DRG 853 ==
LOC: EDUNIT# → EDBD → N.ED 00:04 → SUATTDRO 02:41 → N.EDINP 02:41 → N.5E 03:04 → N.ICU 18:23
PROVIDERS: ADMIT Internal Medicine; ATTEND Internal Medicine Cardiovascular Disease

== ENCOUNTER 2017-09-30 10:53 | Inpatient (IN) ==
[2017-09-30] MEDS ORDERED: SODIUM CHLORIDE 0.9% 1,550 ML IV ONE (11:08)
[2017-09-30] MEDS ORDERED: PIPERACILLIN/TAZOBACTAM 3,375 MG in SODIUM CHLORIDE 0.9% 100 ML IV SCH (11:30)
[2017-09-30] MEDS ORDERED: PIPERACILLIN/TAZOBACTAM 3,375 MG VIAL IV ONE (12:08)
[2017-09-30 12:37] LABS: Basophils % 0.2 % (0.0-0.8); Eosinophils % 0.3 % (0.00-10.9); Hematocrit 37.8 VOL% (42.0-52.0); Hemoglobin 11.6 GM/DL (14.0-18.0); Immature Granulocytes % 0.4 %; Immature Granulocytes Absolute 0.07 #; Lymphocytes # 0.4 10*3/uL (1.4-4.0); Lymphocytes % 2.8 % (21.2-54.2); Mean Corpuscular HGB Conc 30.7 GM/DL (32-36); Mean Corpuscular Hemoglobin 27 PG (27-34); Mean Corpuscular Volume 88.9 FL (87-102); Mean Platelet Volume 12.7 FL (9.6-12.0); Monocytes # 1.2 10*3/uL (0.11-0.8); Monocytes % 7.9 % (1.7-12.7); Neutrophils # 13.8 10*3/uL (1.4-7.4); Neutrophils % 88.4 % (38.7-73.9); Platelet Count 239 T/CUMM (130-400); Red Blood Count 4.25 MC/CUMM (3.8-5.5); Red Cell Distribution Width 15.4 % (9.3-17.3); White Blood Count 15.6 T/CUMM (4-12)
[2017-09-30 12:44] LABS: INR 1.2; PT Patient Result 12.1 SECS
[2017-09-30 13:02] LABS: Alanine Aminotransferase 102 U/L (16-61); Albumin 2.5 G/DL (3.4-5.0); Alkaline Phosphatase 163 U/L (45-117); Aspartate Amino Transferase 85 U/L (0-37); Blood Urea Nitrogen 44 MG/DL (7-18); Calcium 8.4 MG/DL (8.5-10.1); Glucose 113 MG/DL (74-106); Osmolality,Calculated 299.7 MOS/KG (273-304); Potassium 3.3 MMOL/L (3.5-5.1); Sodium 145 MMOL/L (136-145); Total Protein 6.9 G/DL (6.4-8.3)
[2017-09-30] MEDS ORDERED: ACETAMINOPHEN 325 MG TABLET PEG PRN (13:05)
[2017-09-30] MEDS ORDERED: ACETAMINOPHEN 325 MG/10.15 ML UDCUP PEG PRN (13:07)
[2017-09-30 13:17] LABS: Apearance,Urine CLOUDY (Clear); Bilirubin,Urine Negative (Negative); Blood, Urine Moderate mg/dL (Negative); Glucose,Urine (UA) Negative (Negative); Ketones,Urine Negative (Negative); Mucus,Urine Occasional /LPF (Occasional); Nitrite,Urine Negative (Negative); Protein,Urine 100 MG/DL; RBC,Urine 651 /HPF (0-4); Squamous Epithelial Cell,Urine Occasional /HPF (0-10); Urine Color Yellow (Yellow); Urine Specific Gravity 1.025 (1.001-1.035); Urine Urobilinogen < 2.0 EU/DL (0.2-1.0); WBC,Urine 90 /HPF (0-6)
[2017-09-30 13:30] LABS: Lactic Acid 3.5 MMOL/L (0.4-2.0)
[2017-09-30] MEDS ORDERED: DEXTROSE 50% 25 GM/50 ML VIAL IV PRN (13:57)
[2017-09-30] MEDS ORDERED: GLUCAGON 1 MG VIAL IM PRN (13:57)
[2017-09-30 14:57] LABS: Lymphocytes 5 % (20-55); Platelet Estimate Adequate; Segmented Neutrophils 90 % (50-85); Total Cells Counted 100
[2017-09-30] MEDS ORDERED: ZINC OXIDE TOP SCH (15:00)
[2017-09-30] MEDS ORDERED: ACETAMINOPHEN 650 MG SUPP RECTAL PRN (15:14)
[2017-09-30] MEDS ORDERED: MORPHINE 2 MG/1 ML SYRINGE IV PRN (15:17)
[2017-09-30] MEDS ORDERED: LORazepam 2 MG/1 ML VIAL IV PRN (15:25)
[2017-09-30] MEDS: SODIUM CHLORIDE 0.9% 1,000 ML IV SCH (15:42)
[2017-09-30] MEDS: VANCOMYCIN INJ 750 MG in SODIUM CHLORIDE 0.9% 250 ML IV SCH (15:49)
[2017-09-30] MEDS: SCOPOLAMINE 1.5 MG PATCH TRANSDERM SCH (15:49)
[2017-09-30 15:58] LABS: Allen Test Positive
[2017-09-30 16:01] LABS: ABG Base Excess 2.4 MMOL/L (-2.5-2.5); ABG HCO3 26.6 MMOL/L (20-26); ABG Oxygen Saturation 97.8 % (95-100); ABG PCO2 28.8 MM HG (35-48); ABG PH 7.536 (7.35-7.45); ABG PO2 82.1 MM HG (80-95)
[2017-09-30] MEDS: BACLOFEN 10 MG TABLET PEG SCH (16:24)
[2017-09-30] MEDS ORDERED: INSULIN REGULAR 100 UNIT/ML SUBCUT SCH (18:00)
[2017-09-30] MEDS ORDERED: FAMOTIDINE 8 MG/ML 50 ML/BOTTLE PEG SCH (21:00)
[2017-09-30] MEDS ORDERED: QUEtiapine 25 MG TABLET PEG SCH (21:00)
[2017-09-30] MEDS: PIPERACILLIN/TAZOBACTAM 3,375 MG in SODIUM CHLORIDE 0.9% 100 ML IV SCH (21:22)
[2017-10-01] MEDS: VANCOMYCIN INJ 750 MG in SODIUM CHLORIDE 0.9% 250 ML IV SCH ×2 (04:06→15:36)
[2017-10-01] MEDS: PIPERACILLIN/TAZOBACTAM 3,375 MG in SODIUM CHLORIDE 0.9% 100 ML IV SCH ×3 (05:27→20:46)
[2017-10-01 06:48] LABS: Basophils % 0.4 % (0.0-0.8); Eosinophils # 0.5 10*3/uL (0.0-0.87); Eosinophils % 4.8 % (0.00-10.9); Hematocrit 31.2 VOL% (42.0-52.0); Hemoglobin 9.6 GM/DL (14.0-18.0); Immature Granulocytes % 0.5 %; Immature Granulocytes Absolute 0.05 #; Lymphocytes # 1.5 10*3/uL (1.4-4.0); Lymphocytes % 13.1 % (21.2-54.2); Mean Corpuscular HGB Conc 30.8 GM/DL (32-36); Mean Corpuscular Hemoglobin 27 PG (27-34); Mean Corpuscular Volume 89.1 FL (87-102); Mean Platelet Volume 11.9 FL (9.6-12.0); Monocytes # 1.3 10*3/uL (0.11-0.8); Monocytes % 11.7 % (1.7-12.7); Neutrophils # 7.7 10*3/uL (1.4-7.4); Neutrophils % 69.5 % (38.7-73.9); Platelet Count 261 T/CUMM (130-400); Red Cell Distribution Width 15.5 % (9.3-17.3); White Blood Count 11.1 T/CUMM (4-12)
[2017-10-01 07:09] LABS: Albumin 2.2 G/DL (3.4-5.0); Bilirubin,Total 0.7 MG/DL (0.2-1.0); Calcium 8.1 MG/DL (8.5-10.1); Potassium 3.1 MMOL/L (3.5-5.1); Total Protein 5.9 G/DL (6.4-8.3)
[2017-10-01 07:23] LABS: Prealbumin 10.8 MG/DL (20-40)
[2017-10-01] MEDS ORDERED: SODIUM CHLORIDE 0.9% 500 ML IV ONE (08:08)
[2017-10-01] MEDS: DEXT 5% NACL 0.45% KCL 40 MEQ 40 MEQ/1,000 ML BAG IV SCH ×2 (08:59→20:45)
[2017-10-01] MEDS: SKIN HEALING OINT (AQUAPHOR) 50 GM TUBE TOP SCH (09:00)
[2017-10-01] MEDS: SODIUM CHLORIDE 0.9% 1,000 ML IV SCH (09:02)
[2017-10-01] MEDS: ASCORBIC ACID 500 MG TABLET PEG SCH ×3 (10:16→20:46)
[2017-10-01] MEDS: BENZTROPINE 0.5 MG TABLET PEG SCH ×2 (10:16→20:50)
[2017-10-01] MEDS: BACLOFEN 10 MG TABLET PEG SCH ×4 (10:16→20:46)
[2017-10-01] MEDS: MULTIVITAMIN LIQUID (CENTRUM) 60 ML BOTTLE PEG SCH (10:17)
[2017-10-01] MEDS: ZINC SULFATE 220 MG CAPSULE PEG SCH (10:17)
[2017-10-01] MEDS: FERROUS SULFATE 300 MG/5 ML UDCUP PEG SCH (10:17)
[2017-10-01] MEDS: FAMOTIDINE 8 MG/ML 50 ML/BOTTLE PEG SCH ×2 (10:17→20:51)
[2017-10-01] MEDS ORDERED: MORPHINE 2 MG/1 ML SYRINGE IV ONE (11:34)
[2017-10-01] MEDS ORDERED: SODIUM CHLORIDE 0.9% 1,000 ML IV ONE (11:36)
[2017-10-01] MEDS ORDERED: MAGNESIUM HYDROXIDE SUSP 30 ML UDCUP PEG PRN (14:21)
[2017-10-01] MEDS ORDERED: ALUMINUM/MAGNES/SIMETH MAX STR 30 ML UDCUP PEG PRN (14:21)
[2017-10-01] MEDS ORDERED: ACETAMINOPHEN 160 MG PO PRN (14:21)
[2017-10-01] MEDS: FLUCONAZOLE INJ 100 MG in IV BAG 1 EACH IV SCH (15:06)
[2017-10-01] MEDS: VITAMIN A & D OINT 56.7 GM TUBE TOP SCH (20:46)
[2017-10-01] MEDS: ZINC OXIDE PASTE 113 GM TUBE TOP SCH (20:47)
[2017-10-02] MEDS: DEXT 5% NACL 0.45% KCL 40 MEQ 40 MEQ/1,000 ML BAG IV SCH ×3 (02:20→15:05)
[2017-10-02] MEDS: VANCOMYCIN INJ 750 MG in SODIUM CHLORIDE 0.9% 250 ML IV SCH ×2 (03:17→18:30)
[2017-10-02] MEDS: PIPERACILLIN/TAZOBACTAM 3,375 MG in SODIUM CHLORIDE 0.9% 100 ML IV SCH ×3 (04:50→21:19)
[2017-10-02 07:47] LABS: Calcium 7.6 MG/DL (8.5-10.1); Osmolality,Calculated 292.6 MOS/KG (273-304); Potassium 3.5 MMOL/L (3.5-5.1)
[2017-10-02 07:49] LABS: Prealbumin 10.5 MG/DL (20-40)
[2017-10-02] MEDS: VITAMIN A & D OINT 56.7 GM TUBE TOP SCH ×2 (08:30→21:24)
[2017-10-02] MEDS: ZINC OXIDE PASTE 113 GM TUBE TOP SCH ×3 (09:30→21:24)
[2017-10-02] MEDS ORDERED: CHLORHEXIDINE 4% SOLN 118 ML BOTTLE TOP ONE (10:00)
[2017-10-02] MEDS: FAMOTIDINE 8 MG/ML 50 ML/BOTTLE PEG SCH ×2 (11:10→21:26)
[2017-10-02] MEDS: FLUCONAZOLE INJ 100 MG in IV BAG 1 EACH IV SCH (11:30)
[2017-10-02] MEDS: ZINC SULFATE 220 MG CAPSULE PEG SCH (11:30)
[2017-10-02] MEDS: FERROUS SULFATE 300 MG/5 ML UDCUP PEG SCH (11:30)
[2017-10-02] MEDS: ASCORBIC ACID 500 MG TABLET PEG SCH ×2 (11:30→21:27)
[2017-10-02] MEDS: MULTIVITAMIN LIQUID (CENTRUM) 60 ML BOTTLE PEG SCH (11:31)
[2017-10-02] MEDS: SKIN HEALING OINT (AQUAPHOR) 50 GM TUBE TOP SCH (11:42)
[2017-10-02] MEDS: BACLOFEN 10 MG TABLET PEG SCH ×3 (11:44→21:27)
[2017-10-02] MEDS: ACETIC ACID 0.25% IRRIGATION 1,000 ML BOTTLE IRRIG SCH ×2 (15:10→21:20)
[2017-10-02] MEDS: BENZTROPINE 0.5 MG TABLET PEG SCH (21:27)
[2017-10-03] MEDS: DEXT 5% NACL 0.45% KCL 40 MEQ 40 MEQ/1,000 ML BAG IV SCH (03:47)
[2017-10-03] MEDS: VANCOMYCIN INJ 750 MG in SODIUM CHLORIDE 0.9% 250 ML IV SCH (03:48)
[2017-10-03] MEDS: PIPERACILLIN/TAZOBACTAM 3,375 MG in SODIUM CHLORIDE 0.9% 100 ML IV SCH (05:03)
[2017-10-03 07:13] LABS: Basophils % 0.4 % (0.0-0.8); Eosinophils # 0.6 10*3/uL (0.0-0.87); Eosinophils % 7.2 % (0.00-10.9); Hematocrit 30.5 VOL% (42.0-52.0); Hemoglobin 9.7 GM/DL (14.0-18.0); Immature Granulocytes % 0.5 %; Immature Granulocytes Absolute 0.04 #; Lymphocytes # 1.2 10*3/uL (1.4-4.0); Lymphocytes % 16.2 % (21.2-54.2); Mean Corpuscular HGB Conc 31.8 GM/DL (32-36); Mean Corpuscular Hemoglobin 28 PG (27-34); Mean Corpuscular Volume 86.6 FL (87-102); Mean Platelet Volume 12.1 FL (9.6-12.0); Monocytes # 0.8 10*3/uL (0.11-0.8); Monocytes % 10.8 % (1.7-12.7); Neutrophils % 64.9 % (38.7-73.9); Platelet Count 272 T/CUMM (130-400); Red Blood Count 3.52 MC/CUMM (3.8-5.5); Red Cell Distribution Width 14.9 % (9.3-17.3); White Blood Count 7.7 T/CUMM (4-12)
[2017-10-03 07:42] LABS: Calcium 8.1 MG/DL (8.5-10.1); Osmolality,Calculated 278.5 MOS/KG (273-304); Potassium 4.4 MMOL/L (3.5-5.1)
[2017-10-03] MEDS: FLUCONAZOLE INJ 100 MG in IV BAG 1 EACH IV SCH (09:59)
[2017-10-03] MEDS: VITAMIN A & D OINT 56.7 GM TUBE TOP SCH (10:15)
[2017-10-03] MEDS: ACETIC ACID 0.25% IRRIGATION 1,000 ML BOTTLE IRRIG SCH (10:15)
[2017-10-03] MEDS: SKIN HEALING OINT (AQUAPHOR) 50 GM TUBE TOP SCH (10:15)
[2017-10-03] MEDS: MULTIVITAMIN LIQUID (CENTRUM) 60 ML BOTTLE PEG SCH (10:16)
[2017-10-03] MEDS: ZINC OXIDE PASTE 113 GM TUBE TOP SCH (10:16)
[2017-10-03] MEDS: FERROUS SULFATE 300 MG/5 ML UDCUP PEG SCH (10:18)
[2017-10-03] MEDS: SCOPOLAMINE 1.5 MG PATCH TRANSDERM SCH (10:21)
[2017-10-03] MEDS: ZINC SULFATE 220 MG CAPSULE PEG SCH (10:21)
[2017-10-03] MEDS: ASCORBIC ACID 500 MG TABLET PEG SCH (10:21)
[2017-10-03] MEDS: FAMOTIDINE 8 MG/ML 50 ML/BOTTLE PEG SCH (10:22)
[2017-10-03] MEDS: BACLOFEN 10 MG TABLET PEG SCH (10:23)
[2017-10-03] MEDS ORDERED: VANCOMYCIN INJ 750 MG in SODIUM CHLORIDE 0.9% 250 ML IV SCH (12:00)
[2017-10-03 12:25] VITALS: BP 117/71
== END 2017-10-03 13:15 | DRG 871 ==
LOC: EDBD → EDUNIT# → N.ED 10:53 → SUATTDRO 12:28 → N.EDINP 12:28 → N.2E 14:21
PROVIDERS: ADMIT Internal Medicine; ATTEND Internal Medicine

== ENCOUNTER 2017-12-11 15:51 | Inpatient (IN) ==
[2017-12-11 17:05] LABS: Apearance,Urine CLEAR (Clear); Bacteria,Urine Occasional /HPF (Few); Bilirubin,Urine Negative (Negative); Blood, Urine Negative (Negative); Glucose,Urine (UA) Negative (Negative); Ketones,Urine Negative (Negative); Mucus,Urine Occasional /LPF (Occasional); Nitrite,Urine Negative (Negative); Protein,Urine Negative; RBC,Urine 10 /HPF (0-4); Urine Color Yellow (Yellow); Urine Specific Gravity 1.018 (1.001-1.035); WBC,Urine 1 /HPF (0-6)
[2017-12-11] MEDS ORDERED: SODIUM CHLORIDE 0.9% 1,000 ML IV STA (17:53)
[2017-12-11] MEDS ORDERED: cefTRIAXone 1,000 MG in SODIUM CHLORIDE 0.9% 100 ML IV STA (17:53)
[2017-12-11 20:12] LABS: Albumin 2.6 G/DL (3.4-5.0); Bilirubin,Total 0.6 MG/DL (0.2-1.0); Calcium 8.4 MG/DL (8.5-10.1); Osmolality,Calculated 281.5 MOS/KG (273-304); Potassium 4.3 MMOL/L (3.5-5.1)
[2017-12-11] MEDS ORDERED: MAGNESIUM HYDROXIDE SUSP 30 ML UDCUP PEG PRN (20:39)
[2017-12-11] MEDS ORDERED: ALUMINUM/MAGNES/SIMETH MAX STR 30 ML UDCUP PEG PRN (20:39)
[2017-12-11 21:01] LABS: Basophils % 0.3 % (0.0-0.8); Eosinophils % 0.3 % (0.00-10.9); Hemoglobin 12.2 GM/DL (14.0-18.0); Immature Granulocytes % 0.5 %; Immature Granulocytes Absolute 0.04 #; Lymphocytes # 1.3 10*3/uL (1.4-4.0); Lymphocytes % 14.2 % (21.2-54.2); Mean Corpuscular HGB Conc 31.3 GM/DL (32-36); Mean Corpuscular Hemoglobin 25 PG (27-34); Mean Corpuscular Volume 80.9 FL (87-102); Mean Platelet Volume 11.1 FL (9.6-12.0); Monocytes # 0.8 10*3/uL (0.11-0.8); Monocytes % 9.1 % (1.7-12.7); Neutrophils # 6.7 10*3/uL (1.4-7.4); Neutrophils % 75.6 % (38.7-73.9); Platelet Count 329 T/CUMM (130-400); Red Blood Count 4.82 MC/CUMM (3.8-5.5); Red Cell Distribution Width 14.9 % (9.3-17.3); White Blood Count 8.9 T/CUMM (4-12)
[2017-12-12] MEDS: BENZTROPINE 0.5 MG TABLET PEG SCH ×2 (00:54→21:57)
[2017-12-12] MEDS: ASCORBIC ACID 500 MG TABLET PEG SCH ×3 (00:54→21:57)
[2017-12-12] MEDS: ENOXAPARIN 40 MG/0.4 ML SYRINGE SUBCUT SCH ×2 (00:54→21:56)
[2017-12-12] MEDS: QUEtiapine 25 MG TABLET PEG SCH ×2 (00:54→21:57)
[2017-12-12] MEDS: PIPERACILLIN/TAZOBACTAM 3,375 MG in SODIUM CHLORIDE 0.9% 100 ML IV SCH ×4 (00:55→23:49)
[2017-12-12] MEDS: VANCOMYCIN INJ 1,000 MG in SODIUM CHLORIDE 0.9% 250 ML IV SCH ×2 (00:56→15:16)
[2017-12-12] MEDS: FAMOTIDINE 8 MG/ML 50 ML/BOTTLE PEG SCH ×3 (02:02→21:57)
[2017-12-12 08:34] LABS: Basophils % 0.3 % (0.0-0.8); Eosinophils % 0.3 % (0.00-10.9); Hematocrit 32.7 VOL% (42.0-52.0); Hemoglobin 10.7 GM/DL (14.0-18.0); Immature Granulocytes % 0.4 %; Immature Granulocytes Absolute 0.04 #; Lymphocytes # 1.1 10*3/uL (1.4-4.0); Lymphocytes % 12.6 % (21.2-54.2); Mean Corpuscular HGB Conc 32.7 GM/DL (32-36); Mean Corpuscular Hemoglobin 26 PG (27-34); Mean Corpuscular Volume 78.4 FL (87-102); Mean Platelet Volume 11.4 FL (9.6-12.0); Monocytes # 0.8 10*3/uL (0.11-0.8); Monocytes % 9.3 % (1.7-12.7); Neutrophils # 6.9 10*3/uL (1.4-7.4); Neutrophils % 77.1 % (38.7-73.9); Platelet Count 334 T/CUMM (130-400); Red Blood Count 4.17 MC/CUMM (3.8-5.5); Red Cell Distribution Width 14.8 % (9.3-17.3)
[2017-12-12 09:03] LABS: Calcium 8.7 MG/DL (8.5-10.1); Osmolality,Calculated 284.3 MOS/KG (273-304); Potassium 3.7 MMOL/L (3.5-5.1)
[2017-12-12 09:07] LABS: Lactic Acid 0.8 MMOL/L (0.4-2.0)
[2017-12-12] MEDS: FERROUS SULFATE 300 MG/5 ML UDCUP PEG SCH (09:57)
[2017-12-12] MEDS: MULTIVITAMIN (CENTRUM) TABLET PEG SCH (09:58)
[2017-12-12] MEDS: ALBUTEROL/IPRATROPIUM 3 ML NEB RESP TX SCH (19:08)
[2017-12-13] MEDS: ALBUTEROL/IPRATROPIUM 3 ML NEB RESP TX SCH ×4 (00:33→19:58)
[2017-12-13] MEDS: VANCOMYCIN INJ 1,000 MG in SODIUM CHLORIDE 0.9% 250 ML IV SCH ×3 (03:14→22:39)
[2017-12-13] MEDS: FAMOTIDINE 8 MG/ML 50 ML/BOTTLE PEG SCH ×2 (09:30→21:21)
[2017-12-13] MEDS: PIPERACILLIN/TAZOBACTAM 3,375 MG in SODIUM CHLORIDE 0.9% 100 ML IV SCH ×2 (09:30→17:22)
[2017-12-13] MEDS: ASCORBIC ACID 500 MG TABLET PEG SCH ×2 (09:30→21:21)
[2017-12-13] MEDS: FERROUS SULFATE 300 MG/5 ML UDCUP PEG SCH (09:30)
[2017-12-13] MEDS: MULTIVITAMIN (CENTRUM) TABLET PEG SCH (09:30)
[2017-12-13] MEDS ORDERED: CHLORHEXIDINE 4% SOLN 118 ML BOTTLE TOP ONE (10:57)
[2017-12-13] MEDS: QUEtiapine 25 MG TABLET PEG SCH (21:20)
[2017-12-13] MEDS: BENZTROPINE 0.5 MG TABLET PEG SCH (21:21)
[2017-12-13] MEDS: ENOXAPARIN 40 MG/0.4 ML SYRINGE SUBCUT SCH (21:22)
[2017-12-13] MEDS: ACETIC ACID 0.25% IRRIGATION 1,000 ML BOTTLE IRRIG SCH (22:39)
[2017-12-14] MEDS: PIPERACILLIN/TAZOBACTAM 3,375 MG in SODIUM CHLORIDE 0.9% 100 ML IV SCH ×3 (00:50→16:42)
[2017-12-14] MEDS: ALBUTEROL/IPRATROPIUM 3 ML NEB RESP TX SCH ×4 (01:12→19:36)
[2017-12-14 06:44] LABS: Basophils % 0.3 % (0.0-0.8); Eosinophils # 0.2 10*3/uL (0.0-0.87); Eosinophils % 2.8 % (0.00-10.9); Hematocrit 30.4 VOL% (42.0-52.0); Hemoglobin 9.8 GM/DL (14.0-18.0); Immature Granulocytes % 0.3 %; Immature Granulocytes Absolute 0.02 #; Lymphocytes # 0.9 10*3/uL (1.4-4.0); Lymphocytes % 12.4 % (21.2-54.2); Mean Corpuscular HGB Conc 32.2 GM/DL (32-36); Mean Corpuscular Hemoglobin 26 PG (27-34); Mean Corpuscular Volume 79.2 FL (87-102); Mean Platelet Volume 11.4 FL (9.6-12.0); Monocytes # 0.8 10*3/uL (0.11-0.8); Monocytes % 10.8 % (1.7-12.7); Neutrophils # 5.2 10*3/uL (1.4-7.4); Neutrophils % 73.4 % (38.7-73.9); Platelet Count 301 T/CUMM (130-400); Red Blood Count 3.84 MC/CUMM (3.8-5.5); Red Cell Distribution Width 14.9 % (9.3-17.3); White Blood Count 7.1 T/CUMM (4-12)
[2017-12-14] MEDS: VANCOMYCIN INJ 1,000 MG in SODIUM CHLORIDE 0.9% 250 ML IV SCH ×3 (06:58→21:31)
[2017-12-14 07:22] LABS: Calcium 8.3 MG/DL (8.5-10.1); Osmolality,Calculated 280.4 MOS/KG (273-304); Potassium 3.7 MMOL/L (3.5-5.1); Prealbumin 10.2 MG/DL (20-40)
[2017-12-14 07:26] LABS: Albumin 2.4 G/DL (3.4-5.0); Bilirubin,Total 0.4 MG/DL (0.2-1.0); Calcium 8.8 MG/DL (8.5-10.1); Osmolality,Calculated 281.3 MOS/KG (273-304); Potassium 3.7 MMOL/L (3.5-5.1); Total Protein 6.7 G/DL (6.4-8.3)
[2017-12-14] MEDS: FERROUS SULFATE 300 MG/5 ML UDCUP PEG SCH (09:36)
[2017-12-14] MEDS: ASCORBIC ACID 500 MG TABLET PEG SCH ×2 (09:36→21:23)
[2017-12-14] MEDS: FAMOTIDINE 8 MG/ML 50 ML/BOTTLE PEG SCH ×2 (09:36→21:22)
[2017-12-14] MEDS: MULTIVITAMIN (CENTRUM) TABLET PEG SCH (09:36)
[2017-12-14] MEDS: ACETIC ACID 0.25% IRRIGATION 1,000 ML BOTTLE IRRIG SCH (11:12)
[2017-12-14] MEDS: QUEtiapine 25 MG TABLET PEG SCH (21:23)
[2017-12-14] MEDS: BENZTROPINE 0.5 MG TABLET PEG SCH (21:23)
[2017-12-14] MEDS: ENOXAPARIN 40 MG/0.4 ML SYRINGE SUBCUT SCH (21:23)
[2017-12-15] MEDS: PIPERACILLIN/TAZOBACTAM 3,375 MG in SODIUM CHLORIDE 0.9% 100 ML IV SCH ×3 (00:05→19:13)
[2017-12-15] MEDS: ALBUTEROL/IPRATROPIUM 3 ML NEB RESP TX SCH ×4 (01:14→19:05)
[2017-12-15] MEDS ORDERED: ACETIC ACID 0.25% IRRIGATION 1,000 ML BOTTLE IRRIG SCH (09:00)
[2017-12-15] MEDS ORDERED: VANCOMYCIN INJ 1,250 MG in SODIUM CHLORIDE 0.9% 250 ML IV SCH (09:00)
[2017-12-15] MEDS: MULTIVITAMIN (CENTRUM) TABLET PEG SCH (10:55)
[2017-12-15] MEDS: FERROUS SULFATE 300 MG/5 ML UDCUP PEG SCH (10:55)
[2017-12-15] MEDS: ASCORBIC ACID 500 MG TABLET PEG SCH (10:56)
[2017-12-15] MEDS: FAMOTIDINE 8 MG/ML 50 ML/BOTTLE PEG SCH (10:56)
[2017-12-15] MEDS: VANCOMYCIN INJ 1,000 MG in SODIUM CHLORIDE 0.9% 250 ML IV SCH (12:24)
[2017-12-15] MEDS: VANCOMYCIN INJ 750 MG in SODIUM CHLORIDE 0.9% 250 ML IV SCH ×2 (15:44→19:13)
[2017-12-15 20:59] VITALS: BP 129/76
== END 2017-12-15 21:40 | DRG 871 ==
LOC: N.ED 15:51 → N.EDINP 20:36 → N.5E 21:58
PROVIDERS: ADMIT Internal Medicine Infectious Disease; ATTEND Internal Medicine Infectious Disease

== ENCOUNTER 2018-02-15 14:01 | Inpatient (IN) ==
[2018-02-15] MEDS ORDERED: CLINDAMYCIN INJ 600 MG in PREMIX 1 EACH IV STA (14:43)
[2018-02-15] MEDS ORDERED: LEVOFLOXACIN 500 MG TABLET PO STA (14:43)
[2018-02-15] MEDS ORDERED: ALBUTEROL 2.5 MG/3 ML NEB RESP TX STA (14:43)
[2018-02-15 15:21] LABS: Basophils % 0.4 % (0.0-0.8); Eosinophils # 0.3 10*3/uL (0.0-0.87); Eosinophils % 3.9 % (0.00-10.9); Hematocrit 44.5 VOL% (42.0-52.0); Hemoglobin 13.9 GM/DL (14.0-18.0); Immature Granulocytes % 0.3 %; Immature Granulocytes Absolute 0.02 #; Lymphocytes # 1.3 10*3/uL (1.4-4.0); Lymphocytes % 19.3 % (21.2-54.2); Mean Corpuscular HGB Conc 31.2 GM/DL (32-36); Mean Corpuscular Hemoglobin 27 PG (27-34); Mean Corpuscular Volume 87.1 FL (87-102); Mean Platelet Volume 11.6 FL (9.6-12.0); Monocytes # 0.6 10*3/uL (0.11-0.8); Monocytes % 8.9 % (1.7-12.7); Neutrophils # 4.7 10*3/uL (1.4-7.4); Neutrophils % 67.2 % (38.7-73.9); Platelet Count 207 T/CUMM (130-400); Red Blood Count 5.11 MC/CUMM (3.8-5.5); Red Cell Distribution Width 16.1 % (9.3-17.3)
[2018-02-15 15:31] LABS: PT Patient Result 10.7 SECS; Partial Thromboplastin Time 29.2 SECS (0-40)
[2018-02-15 15:41] LABS: Alanine Aminotransferase 23 U/L (16-61); Albumin 3.3 G/DL (3.4-5.0); Alkaline Phosphatase 136 U/L (45-117); Aspartate Amino Transferase 23 U/L (0-37); Bilirubin,Total < 0.39 MG/DL (0.2-1.0); Blood Urea Nitrogen 25 MG/DL (7-18); Calcium 9.3 MG/DL (8.5-10.1); Glucose 94 MG/DL (74-106); Osmolality,Calculated 284.3 MOS/KG (273-304); Potassium 4.1 MMOL/L (3.5-5.1); Sodium 141 MMOL/L (136-145); Total Protein 7.9 G/DL (6.4-8.3); Troponin I Only < 0.015 NG/ML (0.00-0.045)
[2018-02-15 15:45] LABS: Apearance,Urine Slightly Hazy (Clear); Bilirubin,Urine Negative (Negative); Blood, Urine Negative (Negative); Glucose,Urine (UA) Negative (Negative); Ketones,Urine Negative (Negative); Nitrite,Urine Negative (Negative); Protein,Urine Negative; RBC,Urine 5 /HPF (0-4); Squamous Epithelial Cell,Urine Occasional /HPF (0-10); Urine Color Yellow (Yellow); Urine Specific Gravity 1.017 (1.001-1.035); Urine Urobilinogen < 2.0 EU/DL (0.2-1.0); WBC,Urine 1 /HPF (0-6)
[2018-02-15] MEDS ORDERED: POTASSIUM CHLORIDE RIDER 10 MEQ in PREMIX 1 EACH IV PRN (16:42)
[2018-02-15] MEDS ORDERED: ONDANSETRON 4 MG/2 ML VIAL IV PRN (16:42)
[2018-02-15] MEDS ORDERED: MAGNESIUM SULF RIDER 2 GM in PREMIX 1 EACH IV PRN (16:42)
[2018-02-15] MEDS ORDERED: MAGNESIUM SULF RIDER 4 GM in PREMIX 1 EACH IV PRN (16:42)
[2018-02-15] MEDS ORDERED: ACETAMINOPHEN 160 MG/5 ML UDCUP PEG PRN (16:50)
[2018-02-15] MEDS ORDERED: ALUMINUM/MAGNES/SIMETH MAX STR 30 ML UDCUP PEG PRN (16:50)
[2018-02-15] MEDS ORDERED: MAGNESIUM HYDROXIDE SUSP 30 ML UDCUP PEG PRN (16:50)
[2018-02-15] MEDS ORDERED: LEVOFLOXACIN INJ 750 MG in PREMIX 1 EACH IV SCH ×2 (17:00→23:30)
[2018-02-15] MEDS ORDERED: VANCOMYCIN INJ 1,000 MG in SODIUM CHLORIDE 0.9% 250 ML IV SCH (17:00)
[2018-02-15] MEDS ORDERED: SODIUM CHLORIDE 0.9% 1,000 ML IV SCH (17:00)
[2018-02-15] MEDS ORDERED: AZTREONAM 2,000 MG in SYRINGE 1 EACH IV SCH (17:00)
[2018-02-15] MEDS ORDERED: FUROSEMIDE 40 MG/4 ML VIAL IV STA ×2 (17:39→19:45)
[2018-02-15] MEDS ORDERED: ALBUTEROL/IPRATROPIUM 3 ML NEB RESP TX SCH (19:00)
[2018-02-15] MEDS ORDERED: MULTIVITAMIN LIQUID (CENTRUM) 60 ML BOTTLE PEG SCH (21:00)
[2018-02-15] MEDS ORDERED: BENZTROPINE 0.5 MG TABLET PEG SCH (21:00)
[2018-02-15] MEDS ORDERED: FAMOTIDINE 8 MG/ML 50 ML/BOTTLE PEG SCH (21:00)
[2018-02-15] MEDS ORDERED: ASCORBIC ACID 500 MG TABLET PEG SCH (21:00)
[2018-02-15] MEDS ORDERED: BACLOFEN 10 MG TABLET PEG SCH (21:00)
[2018-02-15] MEDS ORDERED: QUEtiapine 25 MG TABLET PEG SCH (21:00)
[2018-02-15] MEDS: ENOXAPARIN 40 MG/0.4 ML SYRINGE SUBCUT SCH (23:05)
[2018-02-15] MEDS: AZTREONAM 2,000 MG in SYRINGE 1 EACH IV SCH (23:45)
[2018-02-15] MEDS: VANCOMYCIN INJ 1,000 MG in SODIUM CHLORIDE 0.9% 250 ML IV SCH (23:55)
[2018-02-16 04:52] LABS: Basophils % 0.4 % (0.0-0.8); Eosinophils # 0.2 10*3/uL (0.0-0.87); Eosinophils % 2.4 % (0.00-10.9); Hematocrit 43.6 VOL% (42.0-52.0); Hemoglobin 14.2 GM/DL (14.0-18.0); Immature Granulocytes % 0.3 %; Immature Granulocytes Absolute 0.02 #; Lymphocytes # 2.1 10*3/uL (1.4-4.0); Lymphocytes % 27.3 % (21.2-54.2); Mean Corpuscular HGB Conc 32.6 GM/DL (32-36); Mean Corpuscular Hemoglobin 27 PG (27-34); Mean Platelet Volume 12.4 FL (9.6-12.0); Monocytes # 0.8 10*3/uL (0.11-0.8); Monocytes % 10.3 % (1.7-12.7); Neutrophils # 4.6 10*3/uL (1.4-7.4); Neutrophils % 59.3 % (38.7-73.9); Platelet Count 242 T/CUMM (130-400); Red Blood Count 5.25 MC/CUMM (3.8-5.5); Red Cell Distribution Width 15.9 % (9.3-17.3); White Blood Count 7.8 T/CUMM (4-12)
[2018-02-16] MEDS: AZTREONAM 2,000 MG in SYRINGE 1 EACH IV SCH (05:30)
[2018-02-16 05:34] LABS: Albumin 3.5 G/DL (3.4-5.0); Bilirubin,Total 0.7 MG/DL (0.2-1.0); Calcium 9.4 MG/DL (8.5-10.1); Osmolality,Calculated 284.3 MOS/KG (273-304); Potassium 3.7 MMOL/L (3.5-5.1); Total Protein 8.2 G/DL (6.4-8.3)
[2018-02-16] MEDS ORDERED: GLUCAGON 1 MG VIAL IM PRN (08:55)
[2018-02-16] MEDS ORDERED: DEXTROSE 50% 25 GM/50 ML VIAL IV PRN (08:55)
[2018-02-16] MEDS ORDERED: FERROUS SULFATE 300 MG/5 ML UDCUP PEG SCH (09:00)
[2018-02-16] MEDS ORDERED: ZINC OXIDE PASTE 113 GM TUBE TOP SCH (09:00)
[2018-02-16] MEDS ORDERED: SKIN HEALING OINT (AQUAPHOR) 50 GM TUBE TOP SCH (09:00)
[2018-02-16] MEDS: cefTAZidime 2,000 MG in SYRINGE 1 EACH IV SCH ×2 (11:00→16:50)
[2018-02-16] MEDS: VANCOMYCIN INJ 1,000 MG in SODIUM CHLORIDE 0.9% 250 ML IV SCH ×2 (12:23→23:32)
[2018-02-16] MEDS: INSULIN REGULAR 100 UNIT/ML SUBCUT SCH ×2 (12:24→17:45)
[2018-02-16] MEDS: LEVOFLOXACIN INJ 750 MG in PREMIX 1 EACH IV SCH (16:50)
[2018-02-16] MEDS: ENOXAPARIN 40 MG/0.4 ML SYRINGE SUBCUT SCH (23:33)
[2018-02-17] MEDS: INSULIN REGULAR 100 UNIT/ML SUBCUT SCH ×4 (01:14→18:19)
[2018-02-17] MEDS: cefTAZidime 2,000 MG in SYRINGE 1 EACH IV SCH ×3 (01:54→16:45)
[2018-02-17 06:42] LABS: Basophils % 0.2 % (0.0-0.8); Eosinophils # 0.2 10*3/uL (0.0-0.87); Eosinophils % 3.4 % (0.00-10.9); Hematocrit 41.4 VOL% (42.0-52.0); Hemoglobin 13.1 GM/DL (14.0-18.0); Immature Granulocytes % 0.2 %; Immature Granulocytes Absolute 0.01 #; Lymphocytes # 1.7 10*3/uL (1.4-4.0); Lymphocytes % 26.6 % (21.2-54.2); Mean Corpuscular HGB Conc 31.6 GM/DL (32-36); Mean Corpuscular Hemoglobin 27 PG (27-34); Mean Corpuscular Volume 84.1 FL (87-102); Mean Platelet Volume 11.9 FL (9.6-12.0); Monocytes # 0.8 10*3/uL (0.11-0.8); Monocytes % 11.5 % (1.7-12.7); Neutrophils # 3.8 10*3/uL (1.4-7.4); Neutrophils % 58.1 % (38.7-73.9); Platelet Count 227 T/CUMM (130-400); Red Blood Count 4.92 MC/CUMM (3.8-5.5); White Blood Count 6.5 T/CUMM (4-12)
[2018-02-17 07:09] LABS: Calcium 9.1 MG/DL (8.5-10.1); Osmolality,Calculated 289.1 MOS/KG (273-304); Potassium 3.7 MMOL/L (3.5-5.1)
[2018-02-17 07:10] LABS: Albumin 3.1 G/DL (3.4-5.0); Bilirubin,Total 0.7 MG/DL (0.2-1.0); Calcium 8.9 MG/DL (8.5-10.1); Osmolality,Calculated 289.1 MOS/KG (273-304); Potassium 3.7 MMOL/L (3.5-5.1); Total Protein 7.4 G/DL (6.4-8.3)
[2018-02-17] MEDS: LEVOFLOXACIN INJ 750 MG in PREMIX 1 EACH IV SCH (16:08)
[2018-02-17] MEDS: ENOXAPARIN 40 MG/0.4 ML SYRINGE SUBCUT SCH (21:52)
[2018-02-18] MEDS: cefTAZidime 2,000 MG in SYRINGE 1 EACH IV SCH ×3 (03:27→17:18)
[2018-02-18] MEDS: INSULIN REGULAR 100 UNIT/ML SUBCUT SCH ×4 (06:07→19:11)
[2018-02-18 06:16] LABS: Basophils % 0.4 % (0.0-0.8); Eosinophils # 0.3 10*3/uL (0.0-0.87); Eosinophils % 5.6 % (0.00-10.9); Hematocrit 41.1 VOL% (42.0-52.0); Immature Granulocytes % 0.4 %; Immature Granulocytes Absolute 0.02 #; Lymphocytes # 1.8 10*3/uL (1.4-4.0); Lymphocytes % 33.1 % (21.2-54.2); Mean Corpuscular HGB Conc 31.6 GM/DL (32-36); Mean Corpuscular Hemoglobin 27 PG (27-34); Mean Corpuscular Volume 85.8 FL (87-102); Mean Platelet Volume 11.3 FL (9.6-12.0); Monocytes # 0.9 10*3/uL (0.11-0.8); Monocytes % 15.9 % (1.7-12.7); Neutrophils # 2.4 10*3/uL (1.4-7.4); Neutrophils % 44.6 % (38.7-73.9); Platelet Count 206 T/CUMM (130-400); Red Blood Count 4.79 MC/CUMM (3.8-5.5); Red Cell Distribution Width 15.8 % (9.3-17.3); White Blood Count 5.4 T/CUMM (4-12)
[2018-02-18 06:33] LABS: Calcium 8.7 MG/DL (8.5-10.1); Potassium 3.8 MMOL/L (3.5-5.1)
[2018-02-18 06:43] LABS: Albumin 3.2 G/DL (3.4-5.0); Bilirubin,Total 0.4 MG/DL (0.2-1.0); Calcium 8.6 MG/DL (8.5-10.1); Potassium 3.8 MMOL/L (3.5-5.1); Total Protein 7.5 G/DL (6.4-8.3)
[2018-02-18 07:09] LABS: Eosinophils 3 % (0-10); Hypochromasia 1+; Lymphocytes 39 % (20-55); Ovalocytes Slight; Platelet Estimate Adequate; Segmented Neutrophils 49 % (50-85); Total Cells Counted 100
[2018-02-18] MEDS: LEVOFLOXACIN 750 MG TABLET PEG SCH (10:40)
[2018-02-18] MEDS: ENOXAPARIN 40 MG/0.4 ML SYRINGE SUBCUT SCH (20:55)
[2018-02-19] MEDS: INSULIN REGULAR 100 UNIT/ML SUBCUT SCH ×2 (00:42→06:08)
[2018-02-19] MEDS: cefTAZidime 2,000 MG in SYRINGE 1 EACH IV SCH ×2 (01:51→09:03)
[2018-02-19 06:01] LABS: Basophils % 0.3 % (0.0-0.8); Eosinophils # 0.2 10*3/uL (0.0-0.87); Eosinophils % 2.5 % (0.00-10.9); Hematocrit 44.2 VOL% (42.0-52.0); Hemoglobin 13.8 GM/DL (14.0-18.0); Lymphocytes # 0.9 10*3/uL (1.4-4.0); Lymphocytes % 9.7 % (21.2-54.2); Mean Corpuscular HGB Conc 31.2 GM/DL (32-36); Mean Corpuscular Hemoglobin 27 PG (27-34); Mean Corpuscular Volume 86.7 FL (87-102); Mean Platelet Volume 12.3 FL (9.6-12.0); Monocytes # 0.8 10*3/uL (0.11-0.8); Neutrophils # 7.7 10*3/uL (1.4-7.4); Neutrophils % 78.5 % (38.7-73.9); Platelet Count 208 T/CUMM (130-400); Red Cell Distribution Width 15.9 % (9.3-17.3); White Blood Count 9.7 T/CUMM (4-12)
[2018-02-19 06:18] LABS: Albumin 3.4 G/DL (3.4-5.0); Bilirubin,Total 0.6 MG/DL (0.2-1.0); Calcium 8.8 MG/DL (8.5-10.1); Osmolality,Calculated 288.1 MOS/KG (273-304); Potassium 3.6 MMOL/L (3.5-5.1); Total Protein 7.7 G/DL (6.4-8.3)
[2018-02-19 08:44] VITALS: BP 112/61
[2018-02-19] MEDS: LEVOFLOXACIN 750 MG TABLET PEG SCH (09:03)
== END 2018-02-19 09:50 | DRG 177 ==
LOC: EDUNIT# → N.ED 14:01 → N.EDINP 17:00 → N.2E 18:38
PROVIDERS: ADMIT Internal Medicine; ATTEND Internal Medicine

== ENCOUNTER 2018-02-26 11:22 | Inpatient (IN) ==
[2018-02-26] MEDS ORDERED: SODIUM CHLORIDE 0.9% 500 ML IV STA (11:57)
[2018-02-26] MEDS ORDERED: ONDANSETRON 4 MG/2 ML VIAL IV STA (11:57)
[2018-02-26] MEDS ORDERED: PANTOPRAZOLE 40 MG VIAL IV STA (11:57)
[2018-02-26] MEDS ORDERED: CLINDAMYCIN INJ 600 MG in PREMIX 1 EACH IV STA (11:57)
[2018-02-26] MEDS ORDERED: ALBUTEROL NEB SOLN 5 MG/ML 20 ML/BOTTLE RESP TX SCH (12:00)
[2018-02-26 12:41] LABS: Apearance,Urine Clear (Clear); Bilirubin,Urine Negative (Negative); Blood, Urine Negative (Negative); Glucose,Urine (UA) Negative (Negative); Ketones,Urine Negative (Negative); Nitrite,Urine Negative (Negative); Protein,Urine Negative; RBC,Urine 0-4 /HPF (0-4); Squamous Epithelial Cell,Urine Few /HPF (0-10); Urine Color Yellow (Yellow); Urine Specific Gravity 1.005 (1.001-1.035); Urine Urobilinogen 0.2 EU/DL (0.2-1.0); WBC,Urine 0-3 /HPF (0-6)
[2018-02-26 13:26] LABS: Basophils % 0.2 % (0.0-0.8); Eosinophils # 0.1 10*3/uL (0.0-0.87); Eosinophils % 0.7 % (0.00-10.9); Hematocrit 42.2 VOL% (42.0-52.0); Hemoglobin 13.5 GM/DL (14.0-18.0); Immature Granulocytes % 0.4 %; Immature Granulocytes Absolute 0.04 #; Lymphocytes # 1.6 10*3/uL (1.4-4.0); Lymphocytes % 14.7 % (21.2-54.2); Mean Corpuscular Hemoglobin 27 PG (27-34); Mean Corpuscular Volume 84.4 FL (87-102); Mean Platelet Volume 11.7 FL (9.6-12.0); Monocytes % 8.9 % (1.7-12.7); Neutrophils % 75.1 % (38.7-73.9); Platelet Count 195 T/CUMM (130-400); Red Cell Distribution Width 15.4 % (9.3-17.3); White Blood Count 10.7 T/CUMM (4-12)
[2018-02-26 13:40] LABS: PT Patient Result 10.9 SECS
[2018-02-26 14:00] LABS: Alanine Aminotransferase 22 U/L (16-61); Albumin 3.3 G/DL (3.4-5.0); Alkaline Phosphatase 124 U/L (45-117); Aspartate Amino Transferase 21 U/L (0-37); Blood Urea Nitrogen 25 MG/DL (7-18); Calcium 8.8 MG/DL (8.5-10.1); Glucose 92 MG/DL (74-106); Lactic Acid 1.3 MMOL/L (0.4-2.0); Osmolality,Calculated 282.4 MOS/KG (273-304); Sodium 140 MMOL/L (136-145); Total Protein 7.4 G/DL (6.4-8.3); Troponin I Only < 0.015 NG/ML (0.00-0.045)
[2018-02-26] MEDS ORDERED: LACTULOSE 20 GM/30 ML UDCUP PO PRN (17:08)
[2018-02-26] MEDS ORDERED: ONDANSETRON 4 MG/2 ML VIAL IV PRN (17:08)
[2018-02-26] MEDS ORDERED: MORPHINE 4 MG/1 ML VIAL IV PRN (17:08)
[2018-02-26] MEDS ORDERED: BISACODYL 5 MG TABLET PO PRN (17:08)
[2018-02-26] MEDS: MEROPENEM 1,000 MG in SYRINGE 1 EACH IV SCH (18:26)
[2018-02-26] MEDS: LEVOFLOXACIN INJ 750 MG in PREMIX 1 EACH IV SCH (18:28)
[2018-02-26] MEDS: VANCOMYCIN INJ 750 MG in SODIUM CHLORIDE 0.9% 250 ML IV SCH (20:10)
[2018-02-27] MEDS: MEROPENEM 1,000 MG in SYRINGE 1 EACH IV SCH ×3 (01:39→17:26)
[2018-02-27 06:57] LABS: Basophils % 0.3 % (0.0-0.8); Eosinophils # 0.1 10*3/uL (0.0-0.87); Hematocrit 38.7 VOL% (42.0-52.0); Hemoglobin 12.4 GM/DL (14.0-18.0); Immature Granulocytes % 0.4 %; Immature Granulocytes Absolute 0.03 #; Lymphocytes # 1.4 10*3/uL (1.4-4.0); Lymphocytes % 20.3 % (21.2-54.2); Mean Corpuscular Hemoglobin 27 PG (27-34); Mean Corpuscular Volume 83.6 FL (87-102); Mean Platelet Volume 11.7 FL (9.6-12.0); Monocytes # 0.8 10*3/uL (0.11-0.8); Monocytes % 11.7 % (1.7-12.7); Neutrophils # 4.6 10*3/uL (1.4-7.4); Neutrophils % 65.3 % (38.7-73.9); Platelet Count 202 T/CUMM (130-400); Red Blood Count 4.63 MC/CUMM (3.8-5.5); Red Cell Distribution Width 15.4 % (9.3-17.3); White Blood Count 7.1 T/CUMM (4-12)
[2018-02-27 07:33] LABS: Calcium 8.5 MG/DL (8.5-10.1); Osmolality,Calculated 281.4 MOS/KG (273-304); Potassium 4.1 MMOL/L (3.5-5.1); Thyroid Stimulating Hormone 1.71 uIU/ml (0.358-3.74)
[2018-02-27] MEDS: ALBUTEROL/IPRATROPIUM 3 ML NEB RESP TX PRN (07:46)
[2018-02-27] MEDS: VANCOMYCIN INJ 750 MG in SODIUM CHLORIDE 0.9% 250 ML IV SCH ×2 (09:08→20:32)
[2018-02-27] MEDS ORDERED: GLUCAGON 1 MG VIAL IM PRN (09:25)
[2018-02-27] MEDS ORDERED: DEXTROSE 50% 25 GM/50 ML VIAL IV PRN (09:25)
[2018-02-27] MEDS: INSULIN REGULAR 100 UNIT/ML SUBCUT SCH ×2 (13:00→18:20)
[2018-02-27] MEDS: LEVOFLOXACIN INJ 750 MG in PREMIX 1 EACH IV SCH (17:29)
[2018-02-28] MEDS: INSULIN REGULAR 100 UNIT/ML SUBCUT SCH ×5 (00:12→23:18)
[2018-02-28] MEDS: MEROPENEM 1,000 MG in SYRINGE 1 EACH IV SCH ×3 (01:40→17:31)
[2018-02-28 07:46] LABS: Basophils % 0.2 % (0.0-0.8); Eosinophils # 0.2 10*3/uL (0.0-0.87); Hematocrit 42.5 VOL% (42.0-52.0); Hemoglobin 13.7 GM/DL (14.0-18.0); Immature Granulocytes % 0.3 %; Immature Granulocytes Absolute 0.03 #; Lymphocytes # 1.2 10*3/uL (1.4-4.0); Lymphocytes % 11.9 % (21.2-54.2); Mean Corpuscular HGB Conc 32.2 GM/DL (32-36); Mean Corpuscular Hemoglobin 27 PG (27-34); Mean Platelet Volume 11.5 FL (9.6-12.0); Monocytes # 0.8 10*3/uL (0.11-0.8); Monocytes % 7.5 % (1.7-12.7); Neutrophils # 8.1 10*3/uL (1.4-7.4); Neutrophils % 78.1 % (38.7-73.9); Platelet Count 188 T/CUMM (130-400); Red Cell Distribution Width 15.3 % (9.3-17.3); White Blood Count 10.4 T/CUMM (4-12)
[2018-02-28 08:06] LABS: Calcium 9.2 MG/DL (8.5-10.1); Osmolality,Calculated 276.7 MOS/KG (273-304); Potassium 4.2 MMOL/L (3.5-5.1)
[2018-02-28] MEDS: ALBUTEROL/IPRATROPIUM 3 ML NEB RESP TX PRN ×2 (08:38→19:15)
[2018-02-28] MEDS: VANCOMYCIN INJ 1,000 MG in SODIUM CHLORIDE 0.9% 250 ML IV SCH ×2 (11:42→23:34)
[2018-02-28] MEDS: VANCOMYCIN INJ 750 MG in SODIUM CHLORIDE 0.9% 250 ML IV SCH (11:42)
[2018-02-28] MEDS: LEVOFLOXACIN INJ 750 MG in PREMIX 1 EACH IV SCH (17:40)
[2018-03-01] MEDS: MEROPENEM 1,000 MG in SYRINGE 1 EACH IV SCH ×3 (01:33→18:16)
[2018-03-01 04:17] LABS: Basophils % 0.3 % (0.0-0.8); Eosinophils # 0.2 10*3/uL (0.0-0.87); Eosinophils % 2.8 % (0.00-10.9); Hematocrit 38.6 VOL% (42.0-52.0); Hemoglobin 12.5 GM/DL (14.0-18.0); Immature Granulocytes % 0.1 %; Immature Granulocytes Absolute 0.01 #; Lymphocytes # 1.7 10*3/uL (1.4-4.0); Lymphocytes % 22.4 % (21.2-54.2); Mean Corpuscular HGB Conc 32.4 GM/DL (32-36); Mean Corpuscular Hemoglobin 27 PG (27-34); Mean Corpuscular Volume 82.8 FL (87-102); Mean Platelet Volume 11.6 FL (9.6-12.0); Monocytes # 0.7 10*3/uL (0.11-0.8); Monocytes % 9.7 % (1.7-12.7); Neutrophils # 4.9 10*3/uL (1.4-7.4); Neutrophils % 64.7 % (38.7-73.9); Platelet Count 203 T/CUMM (130-400); Red Blood Count 4.66 MC/CUMM (3.8-5.5); Red Cell Distribution Width 15.2 % (9.3-17.3); White Blood Count 7.5 T/CUMM (4-12)
[2018-03-01 04:46] LABS: Calcium 9.1 MG/DL (8.5-10.1); Osmolality,Calculated 281.3 MOS/KG (273-304)
[2018-03-01 04:49] LABS: Prealbumin 22.1 MG/DL (20-40)
[2018-03-01] MEDS: INSULIN REGULAR 100 UNIT/ML SUBCUT SCH ×3 (05:02→18:16)
[2018-03-01] MEDS ORDERED: LIDOCAINE 1% 20 ML VIAL MISC INJ ONE (07:32)
[2018-03-01] MEDS ORDERED: MIDAZOLAM 2 MG/2 ML VIAL IV ONE (07:32)
[2018-03-01] MEDS ORDERED: SODIUM CHLORIDE 0.9% 0 ML IV ONE (08:07)
[2018-03-01] MEDS ORDERED: MIDAZOLAM 2 MG/2 ML VIAL ONE (09:09)
[2018-03-01] MEDS: VANCOMYCIN INJ 1,000 MG in SODIUM CHLORIDE 0.9% 250 ML IV SCH ×2 (10:53→23:59)
[2018-03-01] MEDS: LEVOFLOXACIN INJ 750 MG in PREMIX 1 EACH IV SCH (17:10)
[2018-03-02] MEDS: MEROPENEM 1,000 MG in SYRINGE 1 EACH IV SCH ×3 (02:31→17:44)
[2018-03-02] MEDS: INSULIN REGULAR 100 UNIT/ML SUBCUT SCH ×4 (07:10→17:47)
[2018-03-02] MEDS ORDERED: PANTOPRAZOLE 40 MG VIAL IV SCH (09:00)
[2018-03-02] MEDS: VANCOMYCIN INJ 1,000 MG in SODIUM CHLORIDE 0.9% 250 ML IV SCH ×2 (12:17→23:39)
[2018-03-02] MEDS: ZINC OXIDE PASTE 113 GM TUBE TOP SCH ×3 (12:18→23:52)
[2018-03-02] MEDS: LEVOFLOXACIN INJ 750 MG in PREMIX 1 EACH IV SCH (17:43)
[2018-03-03] MEDS: INSULIN REGULAR 100 UNIT/ML SUBCUT SCH ×4 (00:05→17:11)
[2018-03-03] MEDS: MEROPENEM 1,000 MG in SYRINGE 1 EACH IV SCH ×3 (03:36→17:22)
[2018-03-03] MEDS: LANSOPRAZOLE ODT 30 MG TABLET PEG SCH (08:53)
[2018-03-03] MEDS: ZINC OXIDE PASTE 113 GM TUBE TOP SCH (08:57)
[2018-03-03] MEDS: VANCOMYCIN INJ 1,000 MG in SODIUM CHLORIDE 0.9% 250 ML IV SCH (12:32)
[2018-03-03] MEDS: LEVOFLOXACIN INJ 750 MG in PREMIX 1 EACH IV SCH (17:22)
[2018-03-04] MEDS: ZINC OXIDE PASTE 113 GM TUBE TOP SCH ×3 (00:11→23:29)
[2018-03-04] MEDS: VANCOMYCIN INJ 1,000 MG in SODIUM CHLORIDE 0.9% 250 ML IV SCH ×3 (00:11→23:24)
[2018-03-04] MEDS: INSULIN REGULAR 100 UNIT/ML SUBCUT SCH ×4 (00:16→17:57)
[2018-03-04] MEDS: MEROPENEM 1,000 MG in SYRINGE 1 EACH IV SCH ×3 (02:11→17:12)
[2018-03-04 06:47] LABS: Prealbumin 20.8 MG/DL (20-40)
[2018-03-04] MEDS: LANSOPRAZOLE ODT 30 MG TABLET PEG SCH (09:26)
[2018-03-04] MEDS: LEVOFLOXACIN INJ 750 MG in PREMIX 1 EACH IV SCH (17:12)
[2018-03-05] MEDS: INSULIN REGULAR 100 UNIT/ML SUBCUT SCH ×4 (00:18→18:35)
[2018-03-05] MEDS: MEROPENEM 1,000 MG in SYRINGE 1 EACH IV SCH ×3 (01:29→17:24)
[2018-03-05 06:07] LABS: Basophils % 0.3 % (0.0-0.8); Eosinophils # 0.3 10*3/uL (0.0-0.87); Eosinophils % 4.7 % (0.00-10.9); Hematocrit 41.9 VOL% (42.0-52.0); Hemoglobin 13.6 GM/DL (14.0-18.0); Immature Granulocytes % 0.5 %; Immature Granulocytes Absolute 0.04 #; Lymphocytes # 1.4 10*3/uL (1.4-4.0); Lymphocytes % 18.5 % (21.2-54.2); Mean Corpuscular HGB Conc 32.5 GM/DL (32-36); Mean Corpuscular Hemoglobin 27 PG (27-34); Mean Corpuscular Volume 83.3 FL (87-102); Mean Platelet Volume 12.3 FL (9.6-12.0); Monocytes # 0.7 10*3/uL (0.11-0.8); Neutrophils # 4.8 10*3/uL (1.4-7.4); Platelet Count 227 T/CUMM (130-400); Red Blood Count 5.03 MC/CUMM (3.8-5.5); Red Cell Distribution Width 14.2 % (9.3-17.3); White Blood Count 7.3 T/CUMM (4-12)
[2018-03-05 06:43] LABS: Calcium 9.3 MG/DL (8.5-10.1); Osmolality,Calculated 276.7 MOS/KG (273-304); Potassium 4.2 MMOL/L (3.5-5.1)
[2018-03-05] MEDS: LANSOPRAZOLE ODT 30 MG TABLET PEG SCH (08:40)
[2018-03-05] MEDS: ZINC OXIDE PASTE 113 GM TUBE TOP SCH ×2 (09:35→20:10)
[2018-03-05] MEDS: VANCOMYCIN INJ 1,000 MG in SODIUM CHLORIDE 0.9% 250 ML IV SCH ×2 (11:25→23:25)
[2018-03-05] MEDS: LEVOFLOXACIN INJ 750 MG in PREMIX 1 EACH IV SCH (18:26)
[2018-03-06] MEDS: INSULIN REGULAR 100 UNIT/ML SUBCUT SCH ×4 (00:43→17:50)
[2018-03-06] MEDS: MEROPENEM 1,000 MG in SYRINGE 1 EACH IV SCH ×3 (01:55→17:10)
[2018-03-06] MEDS: LANSOPRAZOLE ODT 30 MG TABLET PEG SCH (09:42)
[2018-03-06] MEDS: ZINC OXIDE PASTE 113 GM TUBE TOP SCH ×2 (09:47→22:10)
[2018-03-06] MEDS: VANCOMYCIN INJ 1,000 MG in SODIUM CHLORIDE 0.9% 250 ML IV SCH ×2 (12:35→23:17)
[2018-03-06] MEDS: LEVOFLOXACIN INJ 750 MG in PREMIX 1 EACH IV SCH (17:16)
[2018-03-07] MEDS: INSULIN REGULAR 100 UNIT/ML SUBCUT SCH ×4 (00:32→17:40)
[2018-03-07] MEDS: MEROPENEM 1,000 MG in SYRINGE 1 EACH IV SCH ×3 (01:40→17:30)
[2018-03-07] MEDS: LANSOPRAZOLE ODT 30 MG TABLET PEG SCH (09:22)
[2018-03-07] MEDS: ZINC OXIDE PASTE 113 GM TUBE TOP SCH ×2 (09:22→22:03)
[2018-03-07] MEDS: VANCOMYCIN INJ 1,000 MG in SODIUM CHLORIDE 0.9% 250 ML IV SCH ×2 (11:15→23:10)
[2018-03-07] MEDS: LEVOFLOXACIN INJ 750 MG in PREMIX 1 EACH IV SCH (17:36)
[2018-03-08] MEDS: INSULIN REGULAR 100 UNIT/ML SUBCUT SCH ×3 (00:07→12:47)
[2018-03-08] MEDS: MEROPENEM 1,000 MG in SYRINGE 1 EACH IV SCH ×2 (01:13→09:33)
[2018-03-08] MEDS: LANSOPRAZOLE ODT 30 MG TABLET PEG SCH (09:33)
[2018-03-08] MEDS: ZINC OXIDE PASTE 113 GM TUBE TOP SCH (09:37)
[2018-03-08 11:26] VITALS: BP 99/58
[2018-03-08] MEDS: VANCOMYCIN INJ 1,000 MG in SODIUM CHLORIDE 0.9% 250 ML IV SCH (12:46)
== END 2018-03-08 15:00 | DRG 177 ==
LOC: EDUNIT# → EDBD → N.ED 11:22 → N.EDINP 15:09 → SUATTDRO 15:09 → N.3E 16:00
PROVIDERS: ADMIT Internal Medicine; ATTEND Internal Medicine

== ENCOUNTER 2018-03-09 14:13 | Inpatient (IN) ==
[2018-03-09] MEDS ORDERED: methylPREDNISolone SOD SUC 125 MG/2 ML VIAL IV STA (14:39)
[2018-03-09] MEDS ORDERED: ETOMIDATE 20 MG/10 ML VIAL IV STA (14:51)
[2018-03-09] MEDS ORDERED: VECURONIUM 10 MG VIAL IV STA (14:52)
[2018-03-09] MEDS ORDERED: PROPOFOL 1,000 MG/100 ML BOTTLE IV ONE (15:00)
[2018-03-09] MEDS: PROPOFOL 1,000 MG/100 ML BOTTLE IV SCH (15:05)
[2018-03-09] MEDS ORDERED: SODIUM CHLORIDE 0.9% 1,000 ML IV STA (15:15)
[2018-03-09] MEDS ORDERED: VECURONIUM 10 MG VIAL IV ONE (15:22)
[2018-03-09] MEDS ORDERED: ETOMIDATE 20 MG/10 ML VIAL IV ONE (15:22)
[2018-03-09] MEDS ORDERED: PIPERACILLIN/TAZOBACTAM 3,375 MG in SODIUM CHLORIDE 0.9% 100 ML IV STA (15:25)
[2018-03-09 15:28] LABS: ABG Base Excess 3.4 MMOL/L (-2.5-2.5); ABG HCO3 27.4 MMOL/L (20-26); ABG Oxygen Saturation 98.3 % (95-100); ABG PCO2 58.2 MM HG (35-48); ABG PH 7.337 (7.35-7.45); ABG TCO2 26.9 MMOL/L (23-27)
[2018-03-09 15:35] LABS: Basophils % 0.2 % (0.0-0.8); Eosinophils % 0.1 % (0.00-10.9); Hematocrit 44.9 VOL% (42.0-52.0); Hemoglobin 14.4 GM/DL (14.0-18.0); Immature Granulocytes % 0.6 %; Immature Granulocytes Absolute 0.11 #; Lymphocytes # 0.4 10*3/uL (1.4-4.0); Lymphocytes % 1.9 % (21.2-54.2); Mean Corpuscular HGB Conc 32.1 GM/DL (32-36); Mean Corpuscular Hemoglobin 27 PG (27-34); Mean Platelet Volume 11.9 FL (9.6-12.0); Monocytes # 1.1 10*3/uL (0.11-0.8); Monocytes % 5.7 % (1.7-12.7); Neutrophils # 17.2 10*3/uL (1.4-7.4); Neutrophils % 91.5 % (38.7-73.9); Platelet Count 261 T/CUMM (130-400); Red Blood Count 5.28 MC/CUMM (3.8-5.5); Red Cell Distribution Width 13.9 % (9.3-17.3); White Blood Count 18.8 T/CUMM (4-12)
[2018-03-09] MEDS: PIPERACILLIN/TAZOBACTAM 3,375 MG in SODIUM CHLORIDE 0.9% 100 ML IV STA ×2 (15:42→15:49)
[2018-03-09 15:54] LABS: PT Patient Result 10.9 SECS; Partial Thromboplastin Time 26.4 SECS (0-40)
[2018-03-09 15:56] LABS: Alanine Aminotransferase 34 U/L (16-61); Albumin 3.8 G/DL (3.4-5.0); Alkaline Phosphatase 162 U/L (45-117); Aspartate Amino Transferase 34 U/L (0-37); Blood Urea Nitrogen 27 MG/DL (7-18); Calcium 9.5 MG/DL (8.5-10.1); Glucose 132 MG/DL (74-106); Osmolality,Calculated 287.3 MOS/KG (273-304); Potassium 3.8 MMOL/L (3.5-5.1); Sodium 141 MMOL/L (136-145); Total Protein 8.7 G/DL (6.4-8.3); Troponin I Only < 0.015 NG/ML (0.00-0.045)
[2018-03-09 16:05] LABS: Lactic Acid 2.7 MMOL/L (0.4-2.0)
[2018-03-09 16:18] LABS: Band Neutrophils 5 % (0-10); Lymphocytes 2 % (20-55); Platelet Estimate Normal; Segmented Neutrophils 88 % (50-85); Total Cells Counted 100
[2018-03-09] MEDS ORDERED: ALBUTEROL 2.5 MG/3 ML NEB RESP TX PRN (16:18)
[2018-03-09 16:19] LABS: Apearance,Urine CLOUDY (Clear); Bacteria,Urine Occasional /HPF (Few); Bilirubin,Urine Negative (Negative); Blood, Urine Negative (Negative); Glucose,Urine (UA) 50 mg/dL (Negative); Ketones,Urine 5 mg/dL (Negative); Mucus,Urine Occasional /LPF (Occasional); Nitrite,Urine Negative (Negative); Protein,Urine >=500 MG/DL; RBC,Urine 3 /HPF (0-4); Squamous Epithelial Cell,Urine Occasional /HPF (0-10); Urine Color Amber (Yellow); Urine Specific Gravity 1.031 (1.001-1.035); WBC,Urine 2 /HPF (0-6)
[2018-03-09] MEDS ORDERED: BISACODYL 5 MG TABLET PO PRN (17:24)
[2018-03-09] MEDS ORDERED: MAGNESIUM HYDROXIDE SUSP 30 ML UDCUP PEG PRN (17:24)
[2018-03-09] MEDS: LEVOFLOXACIN INJ 750 MG in PREMIX 1 EACH IV SCH (18:30)
[2018-03-09] MEDS: ENOXAPARIN 40 MG/0.4 ML SYRINGE SUBCUT SCH (18:40)
[2018-03-09] MEDS: SODIUM CHLORIDE 0.9% 1,000 ML IV SCH (18:40)
[2018-03-09] MEDS: PANTOPRAZOLE 40 MG VIAL IV SCH (18:40)
[2018-03-09] MEDS: ALBUTEROL/IPRATROPIUM 3 ML NEB RESP TX SCH (19:56)
[2018-03-09 21:29] LABS: Lactic Acid 3.9 MMOL/L (0.4-2.0)
[2018-03-09] MEDS: BENZTROPINE 0.5 MG TABLET PEG SCH (22:16)
[2018-03-09] MEDS: QUEtiapine 25 MG TABLET PEG SCH (22:16)
[2018-03-09] MEDS ORDERED: SODIUM CHLORIDE 0.9% 500 ML IV ONE (22:30)
[2018-03-10] MEDS: SODIUM CHLORIDE 0.9% 1,000 ML IV SCH ×4 (02:43→23:19)
[2018-03-10] MEDS: PIPERACILLIN/TAZOBACTAM 3,375 MG in SODIUM CHLORIDE 0.9% 100 ML IV SCH ×3 (02:43→16:49)
[2018-03-10 04:19] LABS: Basophils % 0.1 % (0.0-0.8); Hematocrit 38.7 VOL% (42.0-52.0); Hemoglobin 12.6 GM/DL (14.0-18.0); Immature Granulocytes % 0.3 %; Immature Granulocytes Absolute 0.04 #; Lymphocytes # 1.1 10*3/uL (1.4-4.0); Lymphocytes % 9.6 % (21.2-54.2); Mean Corpuscular HGB Conc 32.6 GM/DL (32-36); Mean Corpuscular Hemoglobin 28 PG (27-34); Mean Corpuscular Volume 84.3 FL (87-102); Mean Platelet Volume 11.7 FL (9.6-12.0); Monocytes # 0.7 10*3/uL (0.11-0.8); Monocytes % 5.6 % (1.7-12.7); Neutrophils # 9.8 10*3/uL (1.4-7.4); Neutrophils % 84.4 % (38.7-73.9); Platelet Count 221 T/CUMM (130-400); Red Blood Count 4.59 MC/CUMM (3.8-5.5); Red Cell Distribution Width 13.9 % (9.3-17.3); White Blood Count 11.6 T/CUMM (4-12)
[2018-03-10 04:24] LABS: ABG Base Excess 2.8 MMOL/L (-2.5-2.5); ABG PCO2 42.1 MM HG (35-48); ABG PH 7.424 (7.35-7.45); ABG TCO2 24.2 MMOL/L (23-27)
[2018-03-10 04:54] LABS: Bilirubin,Total 0.6 MG/DL (0.2-1.0); Calcium 9.5 MG/DL (8.5-10.1); Potassium 4.8 MMOL/L (3.5-5.1); Total Protein 7.1 G/DL (6.4-8.3)
[2018-03-10] MEDS ORDERED: SODIUM CHLORIDE 0.9% 1,000 ML IV ONE (05:50)
[2018-03-10] MEDS ORDERED: MIDAZOLAM 2 MG/2 ML VIAL IV ONE (07:11)
[2018-03-10] MEDS ORDERED: LIDOCAINE 1% 20 ML VIAL MISC INJ ONE (07:11)
[2018-03-10] MEDS: ALBUTEROL/IPRATROPIUM 3 ML NEB RESP TX SCH ×4 (07:25→19:08)
[2018-03-10] MEDS: FERROUS SULFATE 300 MG/5 ML UDCUP PEG SCH (09:47)
[2018-03-10] MEDS: SKIN HEALING OINT (AQUAPHOR) 50 GM TUBE TOP SCH (11:31)
[2018-03-10] MEDS: ZINC OXIDE PASTE 113 GM TUBE TOP SCH (11:31)
[2018-03-10] MEDS: PROPOFOL 1,000 MG/100 ML BOTTLE IV SCH ×2 (11:33→15:35)
[2018-03-10] MEDS: LEVOFLOXACIN INJ 750 MG in PREMIX 1 EACH IV SCH (16:44)
[2018-03-10] MEDS: PANTOPRAZOLE 40 MG VIAL IV SCH (16:45)
[2018-03-10] MEDS: ENOXAPARIN 40 MG/0.4 ML SYRINGE SUBCUT SCH (16:45)
[2018-03-10] MEDS: QUEtiapine 25 MG TABLET PEG SCH (22:18)
[2018-03-10] MEDS: BENZTROPINE 0.5 MG TABLET PEG SCH (22:18)
[2018-03-11] MEDS: ALBUTEROL/IPRATROPIUM 3 ML NEB RESP TX SCH ×4 (00:31→19:08)
[2018-03-11] MEDS: PIPERACILLIN/TAZOBACTAM 3,375 MG in SODIUM CHLORIDE 0.9% 100 ML IV SCH ×3 (02:00→17:16)
[2018-03-11 03:40] LABS: ABG HCO3 25.3 MMOL/L (20-26); ABG Oxygen Saturation 98.8 % (95-100); ABG PCO2 34.6 MM HG (35-48); ABG PH 7.482 (7.35-7.45); ABG PO2 196.7 MM HG (80-95); ABG TCO2 26.4 MMOL/L (23-27)
[2018-03-11 04:38] LABS: Basophils % 0.4 % (0.0-0.8); Eosinophils # 0.2 10*3/uL (0.0-0.87); Eosinophils % 1.8 % (0.00-10.9); Hemoglobin 10.5 GM/DL (14.0-18.0); Immature Granulocytes % 0.4 %; Immature Granulocytes Absolute 0.03 #; Lymphocytes % 23.5 % (21.2-54.2); Mean Corpuscular HGB Conc 31.8 GM/DL (32-36); Mean Corpuscular Hemoglobin 27 PG (27-34); Mean Corpuscular Volume 85.9 FL (87-102); Mean Platelet Volume 12.2 FL (9.6-12.0); Monocytes % 12.2 % (1.7-12.7); Neutrophils # 5.2 10*3/uL (1.4-7.4); Neutrophils % 61.7 % (38.7-73.9); Platelet Count 169 T/CUMM (130-400); Red Blood Count 3.84 MC/CUMM (3.8-5.5); Red Cell Distribution Width 13.8 % (9.3-17.3); White Blood Count 8.4 T/CUMM (4-12)
[2018-03-11 05:09] LABS: Prealbumin 17.8 MG/DL (20-40)
[2018-03-11 05:11] LABS: Albumin 2.8 G/DL (3.4-5.0); Bilirubin,Total 0.4 MG/DL (0.2-1.0); Calcium 8.7 MG/DL (8.5-10.1); Osmolality,Calculated 289.8 MOS/KG (273-304); Potassium 3.6 MMOL/L (3.5-5.1); Total Protein 6.2 G/DL (6.4-8.3)
[2018-03-11 07:42] LABS: ABG Base Excess 2.4 MMOL/L (-2.5-2.5); ABG HCO3 26.6 MMOL/L (20-26); ABG Oxygen Saturation 99.7 % (95-100); ABG PCO2 41.4 MM HG (35-48); ABG PH 7.423 (7.35-7.45); ABG TCO2 24.4 MMOL/L (23-27)
[2018-03-11] MEDS ORDERED: VANCOMYCIN INJ 1,000 MG in SODIUM CHLORIDE 0.9% 250 ML IV SCH (08:00)
[2018-03-11] MEDS: SODIUM CHLORIDE 0.9% 1,000 ML IV SCH ×3 (10:25→23:54)
[2018-03-11] MEDS: FERROUS SULFATE 300 MG/5 ML UDCUP PEG SCH (10:25)
[2018-03-11] MEDS: SKIN HEALING OINT (AQUAPHOR) 50 GM TUBE TOP SCH (10:28)
[2018-03-11] MEDS: ZINC OXIDE PASTE 113 GM TUBE TOP SCH (10:28)
[2018-03-11 11:49] LABS: ABG Base Excess 1.2 MMOL/L (-2.5-2.5); ABG HCO3 25.4 MMOL/L (20-26); ABG Oxygen Saturation 98.3 % (95-100); ABG PCO2 40.5 MM HG (35-48); ABG PH 7.412 (7.35-7.45); ABG TCO2 23.2 MMOL/L (23-27)
[2018-03-11] MEDS: LEVOFLOXACIN INJ 750 MG in PREMIX 1 EACH IV SCH (17:16)
[2018-03-11] MEDS: ENOXAPARIN 40 MG/0.4 ML SYRINGE SUBCUT SCH (17:16)
[2018-03-11] MEDS: PANTOPRAZOLE 40 MG VIAL IV SCH (17:17)
[2018-03-11] MEDS: QUEtiapine 25 MG TABLET PEG SCH (20:38)
[2018-03-11] MEDS: BENZTROPINE 0.5 MG TABLET PEG SCH (20:38)
[2018-03-12] MEDS: ALBUTEROL/IPRATROPIUM 3 ML NEB RESP TX SCH ×4 (01:08→19:46)
[2018-03-12] MEDS: PIPERACILLIN/TAZOBACTAM 3,375 MG in SODIUM CHLORIDE 0.9% 100 ML IV SCH ×3 (01:19→18:19)
[2018-03-12 03:47] LABS: ABG HCO3 27.2 MMOL/L (20-26); ABG PCO2 40.9 MM HG (35-48); ABG PH 7.435 (7.35-7.45); ABG TCO2 24.8 MMOL/L (23-27)
[2018-03-12 05:12] LABS: Basophils % 0.2 % (0.0-0.8); Eosinophils # 0.3 10*3/uL (0.0-0.87); Eosinophils % 3.3 % (0.00-10.9); Hematocrit 33.7 VOL% (42.0-52.0); Hemoglobin 10.8 GM/DL (14.0-18.0); Immature Granulocytes % 0.3 %; Immature Granulocytes Absolute 0.03 #; Lymphocytes # 1.7 10*3/uL (1.4-4.0); Lymphocytes % 18.9 % (21.2-54.2); Mean Corpuscular Hemoglobin 27 PG (27-34); Mean Corpuscular Volume 84.9 FL (87-102); Mean Platelet Volume 12.3 FL (9.6-12.0); Monocytes # 0.7 10*3/uL (0.11-0.8); Monocytes % 7.7 % (1.7-12.7); Neutrophils # 6.4 10*3/uL (1.4-7.4); Neutrophils % 69.6 % (38.7-73.9); Platelet Count 173 T/CUMM (130-400); Red Blood Count 3.97 MC/CUMM (3.8-5.5); Red Cell Distribution Width 13.5 % (9.3-17.3); White Blood Count 9.2 T/CUMM (4-12)
[2018-03-12 05:19] LABS: Albumin 2.6 G/DL (3.4-5.0); Bilirubin,Total 0.9 MG/DL (0.2-1.0); Calcium 8.3 MG/DL (8.5-10.1); Osmolality,Calculated 284.8 MOS/KG (273-304); Potassium 3.1 MMOL/L (3.5-5.1); Total Protein 6.1 G/DL (6.4-8.3)
[2018-03-12] MEDS: FERROUS SULFATE 300 MG/5 ML UDCUP PEG SCH (08:06)
[2018-03-12] MEDS: SKIN HEALING OINT (AQUAPHOR) 50 GM TUBE TOP SCH (08:06)
[2018-03-12] MEDS: ZINC OXIDE PASTE 113 GM TUBE TOP SCH (08:06)
[2018-03-12] MEDS ORDERED: POTASSIUM CHLORIDE 20 MEQ/15 ML UDCUP PER TUBE PRN (09:22)
[2018-03-12] MEDS: SODIUM CHLORIDE 0.9% 1,000 ML IV SCH ×3 (09:23→21:25)
[2018-03-12] MEDS: ENOXAPARIN 40 MG/0.4 ML SYRINGE SUBCUT SCH (16:23)
[2018-03-12] MEDS: LEVOFLOXACIN INJ 750 MG in PREMIX 1 EACH IV SCH (16:23)
[2018-03-12] MEDS: BENZTROPINE 0.5 MG TABLET PEG SCH (21:13)
[2018-03-12] MEDS: QUEtiapine 25 MG TABLET PEG SCH (21:13)
[2018-03-12] MEDS: RANITIDINE 150 MG/10 ML 30 ML BOTTLE PEG SCH (21:14)
[2018-03-13] MEDS: ALBUTEROL/IPRATROPIUM 3 ML NEB RESP TX SCH ×4 (00:34→19:41)
[2018-03-13] MEDS: PIPERACILLIN/TAZOBACTAM 3,375 MG in SODIUM CHLORIDE 0.9% 100 ML IV SCH ×3 (01:51→16:33)
[2018-03-13 06:30] LABS: Calcium 8.8 MG/DL (8.5-10.1); Potassium 3.2 MMOL/L (3.5-5.1)
[2018-03-13] MEDS: ZINC OXIDE PASTE 113 GM TUBE TOP SCH (09:51)
[2018-03-13] MEDS: SKIN HEALING OINT (AQUAPHOR) 50 GM TUBE TOP SCH (09:51)
[2018-03-13] MEDS: FERROUS SULFATE 300 MG/5 ML UDCUP PEG SCH (09:52)
[2018-03-13] MEDS: RANITIDINE 150 MG/10 ML 30 ML BOTTLE PEG SCH ×2 (09:56→20:57)
[2018-03-13] MEDS: SODIUM CHLORIDE 0.9% 1,000 ML IV SCH ×2 (14:46→23:18)
[2018-03-13] MEDS: LINEZOLID INJ 600 MG in PREMIX 1 EACH IV SCH ×2 (15:10→20:58)
[2018-03-13] MEDS: ENOXAPARIN 40 MG/0.4 ML SYRINGE SUBCUT SCH (16:34)
[2018-03-13] MEDS: QUEtiapine 25 MG TABLET PEG SCH (20:57)
[2018-03-13] MEDS: BENZTROPINE 0.5 MG TABLET PEG SCH (20:57)
[2018-03-14] MEDS: ALBUTEROL/IPRATROPIUM 3 ML NEB RESP TX SCH ×4 (00:16→19:45)
[2018-03-14] MEDS: PIPERACILLIN/TAZOBACTAM 3,375 MG in SODIUM CHLORIDE 0.9% 100 ML IV SCH ×3 (02:57→17:12)
[2018-03-14 04:03] LABS: Calcium 8.4 MG/DL (8.5-10.1); Osmolality,Calculated 282.8 MOS/KG (273-304); Potassium 2.8 MMOL/L (3.5-5.1)
[2018-03-14] MEDS ORDERED: MAGNESIUM SULF RIDER 4 GM in PREMIX 1 EACH IV PRN (09:00)
[2018-03-14] MEDS ORDERED: MAGNESIUM SULF RIDER 2 GM in PREMIX 1 EACH IV PRN (09:00)
[2018-03-14] MEDS: RANITIDINE 150 MG/10 ML 30 ML BOTTLE PEG SCH ×2 (10:13→21:31)
[2018-03-14] MEDS: FERROUS SULFATE 300 MG/5 ML UDCUP PEG SCH (10:14)
[2018-03-14] MEDS: SKIN HEALING OINT (AQUAPHOR) 50 GM TUBE TOP SCH (10:18)
[2018-03-14] MEDS: ZINC OXIDE PASTE 113 GM TUBE TOP SCH (10:19)
[2018-03-14] MEDS: SODIUM CHLORIDE 0.9% 1,000 ML IV SCH (13:48)
[2018-03-14] MEDS: LINEZOLID INJ 600 MG in PREMIX 1 EACH IV SCH ×2 (14:41→21:30)
[2018-03-14] MEDS: POTASSIUM CHLORIDE RIDER 10 MEQ in PREMIX 1 EACH IV PRN ×5 (14:43→21:30)
[2018-03-14] MEDS: ENOXAPARIN 40 MG/0.4 ML SYRINGE SUBCUT SCH (16:00)
[2018-03-14] MEDS: BENZTROPINE 0.5 MG TABLET PEG SCH (21:30)
[2018-03-14] MEDS: QUEtiapine 25 MG TABLET PEG SCH (21:31)
[2018-03-15] MEDS: PIPERACILLIN/TAZOBACTAM 3,375 MG in SODIUM CHLORIDE 0.9% 100 ML IV SCH (00:13)
[2018-03-15 01:01] LABS: Calcium 8.2 MG/DL (8.5-10.1); Osmolality,Calculated 284.7 MOS/KG (273-304); Potassium 3.6 MMOL/L (3.5-5.1)
[2018-03-15] MEDS: ALBUTEROL/IPRATROPIUM 3 ML NEB RESP TX SCH ×3 (02:32→12:45)
[2018-03-15] MEDS ORDERED: SODIUM PHOSPHATE INJ 30 MMOL in SODIUM CHLORIDE 0.9% 250 ML IV ONE (08:00)
[2018-03-15] MEDS: FERROUS SULFATE 300 MG/5 ML UDCUP PEG SCH (09:51)
[2018-03-15] MEDS: RANITIDINE 150 MG/10 ML 30 ML BOTTLE PEG SCH (09:54)
[2018-03-15] MEDS: LINEZOLID INJ 600 MG in PREMIX 1 EACH IV SCH (10:46)
[2018-03-15] MEDS: SKIN HEALING OINT (AQUAPHOR) 50 GM TUBE TOP SCH (11:08)
[2018-03-15] MEDS: ZINC OXIDE PASTE 113 GM TUBE TOP SCH (11:08)
[2018-03-15] MEDS ORDERED: POTASSIUM PHOS/SOD PHOS POWDER 250 MG PACK PO ONE (12:00)
[2018-03-15 16:05] VITALS: BP 148/79
== END 2018-03-15 16:47 | DRG 208 ==
LOC: EDBD → EDUNIT# → N.ED 14:13 → N.EDINP 15:56 → SUATTDRO 15:56 → N.ICU 17:03 → N.2E 03-12 17:14
PROVIDERS: ADMIT Internal Medicine; ATTEND Internal Medicine

== ENCOUNTER 2018-07-09 09:55 | Inpatient (IN) ==
[2018-07-09] MEDS ORDERED: SODIUM CHLORIDE 0.9% 1,000 ML IV ONE (10:27)
[2018-07-09] MEDS ORDERED: PIPERACILLIN/TAZOBACTAM 3,375 MG in SODIUM CHLORIDE 0.9% 100 ML IV STA (10:28)
[2018-07-09 11:01] LABS: Basophils % 0.2 % (0.0-0.8); Eosinophils % 0.2 % (0.00-10.9); Hematocrit 47.2 VOL% (42.0-52.0); Hemoglobin 14.5 GM/DL (14.0-18.0); Immature Granulocytes % 0.5 %; Immature Granulocytes Absolute 0.08 #; Lymphocytes # 0.7 10*3/uL (1.4-4.0); Lymphocytes % 3.9 % (21.2-54.2); Mean Corpuscular HGB Conc 30.7 GM/DL (32-36); Mean Corpuscular Hemoglobin 27 PG (27-34); Mean Corpuscular Volume 86.4 FL (87-102); Mean Platelet Volume 12.3 FL (9.6-12.0); Monocytes # 0.9 10*3/uL (0.11-0.8); Monocytes % 5.1 % (1.7-12.7); Neutrophils # 15.3 10*3/uL (1.4-7.4); Neutrophils % 90.1 % (38.7-73.9); Platelet Count 183 T/CUMM (130-400); Red Blood Count 5.46 MC/CUMM (3.8-5.5); Red Cell Distribution Width 15.5 % (9.3-17.3); White Blood Count 16.9 T/CUMM (4-12)
[2018-07-09 11:16] LABS: Lactic Acid 3.9 MMOL/L (0.4-2.0)
[2018-07-09] MEDS: LACTATED RINGERS 1,000 ML IV SCH (11:22)
[2018-07-09 11:27] LABS: Band Neutrophils 3 % (0-10); Hypochromasia 1+; Lymphocytes 6 % (20-55); Segmented Neutrophils 88 % (50-85); Total Cells Counted 100
[2018-07-09 11:28] LABS: Microcytosis Slight
[2018-07-09 11:42] LABS: Alanine Aminotransferase 49 U/L (16-61); Albumin 3.7 G/DL (3.4-5.0); Alkaline Phosphatase 136 U/L (45-117); Aspartate Amino Transferase 52 U/L (0-37); Blood Urea Nitrogen 24 MG/DL (7-18); Calcium 9.9 MG/DL (8.5-10.1); Glucose 93 MG/DL (74-106); Potassium 4.7 MMOL/L (3.5-5.1); Sodium 136 MMOL/L (136-145)
[2018-07-09 12:06] LABS: Apearance,Urine CLOUDY (Clear); Bilirubin,Urine Negative (Negative); Blood, Urine Small mg/dL (Negative); Glucose,Urine (UA) Negative (Negative); Ketones,Urine Negative (Negative); Nitrite,Urine Negative (Negative); Protein,Urine 100 MG/DL; Urine Color Amber (Yellow); Urine Specific Gravity 1.024 (1.001-1.035); Urine Urobilinogen < 2.0 EU/DL (0.2-1.0)
[2018-07-09 12:09] LABS: Calcium Oxalate Crystals,Urine Few /HPF (Few); Mucus,Urine Occasional /LPF (Occasional); RBC,Urine 236 /HPF (0-4); WBC,Urine 109 /HPF (0-6)
[2018-07-09] MEDS ORDERED: ACETAMINOPHEN 325 MG TABLET PO PRN (13:39)
[2018-07-09] MEDS ORDERED: ONDANSETRON 4 MG/2 ML VIAL IV PRN (13:39)
[2018-07-09] MEDS ORDERED: ALBUTEROL 2.5 MG/3 ML NEB RESP TX PRN (13:44)
[2018-07-09] MEDS ORDERED: PIPERACILLIN/TAZOBACTAM 4.5 MG in SODIUM CHLORIDE 0.9% 100 ML IV SCH (14:00)
[2018-07-09] MEDS ORDERED: SODIUM CHLORIDE 0.9% 1,000 ML IV SCH (14:00)
[2018-07-09] MEDS ORDERED: ALUMINUM/MAGNES/SIMETH MAX STR 30 ML UDCUP PEG PRN (14:18)
[2018-07-09] MEDS ORDERED: MAGNESIUM HYDROXIDE SUSP 30 ML UDCUP PEG PRN (14:18)
[2018-07-09] MEDS ORDERED: ACETAMINOPHEN 160 MG/5 ML UDCUP PEG PRN (14:18)
[2018-07-09] MEDS ORDERED: predniSONE 20 MG TABLET PO SCH (14:30)
[2018-07-09] MEDS ORDERED: LEVOFLOXACIN INJ 150 ML IV ONE (15:01)
[2018-07-09] MEDS: LEVOFLOXACIN INJ 750 MG in PREMIX 1 EACH IV SCH (15:02)
[2018-07-09] MEDS: HYDROCORTISONE 100 MG VIAL IV SCH ×2 (17:21→21:48)
[2018-07-09] MEDS: LINEZOLID INJ 600 MG in PREMIX 1 EACH IV SCH (17:28)
[2018-07-09] MEDS: PIPERACILLIN/TAZOBACTAM 3,375 MG in SODIUM CHLORIDE 0.9% 100 ML IV SCH (18:51)
[2018-07-09] MEDS: ALBUTEROL/IPRATROPIUM 3 ML NEB RESP TX SCH (19:19)
[2018-07-09] MEDS ORDERED: [UNRECOGNIZED DRUG - OTHER] TOP SCH (21:00)
[2018-07-09] MEDS: LACTOBACILLUS ACIDOPHILUS/BULGARICUS 1 PACKET PEG SCH (21:49)
[2018-07-09] MEDS: QUEtiapine 25 MG TABLET PEG SCH (21:49)
[2018-07-09] MEDS: ASCORBIC ACID 500 MG TABLET PEG SCH (21:49)
[2018-07-09] MEDS: POTASSIUM CHLORIDE 20 MEQ PACK PEG SCH (21:49)
[2018-07-09] MEDS: BENZTROPINE 0.5 MG TABLET PEG SCH (21:49)
[2018-07-10] MEDS: ALBUTEROL/IPRATROPIUM 3 ML NEB RESP TX SCH ×4 (00:22→19:41)
[2018-07-10] MEDS: LACTATED RINGERS 1,000 ML IV SCH ×4 (02:18→18:26)
[2018-07-10] MEDS: LINEZOLID INJ 600 MG in PREMIX 1 EACH IV SCH ×2 (02:38→15:59)
[2018-07-10] MEDS: HYDROCORTISONE 100 MG VIAL IV SCH ×4 (04:59→22:07)
[2018-07-10] MEDS: PIPERACILLIN/TAZOBACTAM 3,375 MG in SODIUM CHLORIDE 0.9% 100 ML IV SCH ×3 (05:17→18:18)
[2018-07-10 05:40] LABS: Basophils % 0.1 % (0.0-0.8); Hemoglobin 12.3 GM/DL (14.0-18.0); Immature Granulocytes % 0.4 %; Immature Granulocytes Absolute 0.06 #; Lymphocytes # 1.5 10*3/uL (1.4-4.0); Lymphocytes % 10.4 % (21.2-54.2); Mean Corpuscular HGB Conc 30.8 GM/DL (32-36); Mean Corpuscular Hemoglobin 26 PG (27-34); Mean Corpuscular Volume 85.7 FL (87-102); Mean Platelet Volume 12.3 FL (9.6-12.0); Monocytes # 0.7 10*3/uL (0.11-0.8); Monocytes % 4.9 % (1.7-12.7); Neutrophils # 11.8 10*3/uL (1.4-7.4); Neutrophils % 84.2 % (38.7-73.9); Platelet Count 134 T/CUMM (130-400); Red Blood Count 4.67 MC/CUMM (3.8-5.5); Red Cell Distribution Width 15.4 % (9.3-17.3)
[2018-07-10 05:54] LABS: Osmolality,Calculated 284.3 MOS/KG (273-304); Potassium 4.1 MMOL/L (3.5-5.1)
[2018-07-10] MEDS: MULTIVITAMIN LIQUID (CENTRUM) 60 ML BOTTLE PEG SCH (09:33)
[2018-07-10] MEDS: FERROUS SULFATE 300 MG/5 ML UDCUP PEG SCH (09:33)
[2018-07-10] MEDS: DOCUSATE SODIUM 100 MG/10 ML UDCUP PEG SCH (09:33)
[2018-07-10] MEDS: LACTOBACILLUS ACIDOPHILUS/BULGARICUS 1 PACKET PEG SCH ×2 (09:34→22:09)
[2018-07-10] MEDS: ASCORBIC ACID 500 MG TABLET PEG SCH ×2 (09:34→22:08)
[2018-07-10] MEDS: PANTOPRAZOLE 40 MG TABLET PO SCH (09:34)
[2018-07-10] MEDS: SKIN HEALING OINT (AQUAPHOR) 50 GM TUBE TOP SCH (09:37)
[2018-07-10] MEDS: ZINC OXIDE PASTE 113 GM TUBE TOP SCH (09:37)
[2018-07-10] MEDS: POTASSIUM CHLORIDE 20 MEQ PACK PEG SCH ×2 (09:37→22:07)
[2018-07-10] MEDS: COLLAGENASE OINT 30 GM TUBE TOP SCH (14:09)
[2018-07-10] MEDS: LEVOFLOXACIN INJ 750 MG in PREMIX 1 EACH IV SCH (14:09)
[2018-07-10] MEDS: BENZTROPINE 0.5 MG TABLET PEG SCH (22:07)
[2018-07-10] MEDS: QUEtiapine 25 MG TABLET PEG SCH (22:08)
[2018-07-11] MEDS: ALBUTEROL/IPRATROPIUM 3 ML NEB RESP TX SCH ×4 (00:47→19:55)
[2018-07-11] MEDS: LINEZOLID INJ 600 MG in PREMIX 1 EACH IV SCH ×2 (02:10→14:12)
[2018-07-11] MEDS: PIPERACILLIN/TAZOBACTAM 3,375 MG in SODIUM CHLORIDE 0.9% 100 ML IV SCH ×3 (04:42→16:16)
[2018-07-11] MEDS: HYDROCORTISONE 100 MG VIAL IV SCH ×4 (04:42→21:00)
[2018-07-11] MEDS: DOCUSATE SODIUM 100 MG/10 ML UDCUP PEG SCH (08:10)
[2018-07-11] MEDS: FERROUS SULFATE 300 MG/5 ML UDCUP PEG SCH (08:10)
[2018-07-11] MEDS: POTASSIUM CHLORIDE 20 MEQ PACK PEG SCH ×2 (08:11→20:59)
[2018-07-11] MEDS: PANTOPRAZOLE 40 MG TABLET PO SCH (08:11)
[2018-07-11] MEDS: LACTOBACILLUS ACIDOPHILUS/BULGARICUS 1 PACKET PEG SCH ×2 (08:11→21:13)
[2018-07-11] MEDS: ASCORBIC ACID 500 MG TABLET PEG SCH ×2 (08:11→20:59)
[2018-07-11] MEDS: SKIN HEALING OINT (AQUAPHOR) 50 GM TUBE TOP SCH (08:13)
[2018-07-11] MEDS: ZINC OXIDE PASTE 113 GM TUBE TOP SCH (08:13)
[2018-07-11] MEDS: COLLAGENASE OINT 30 GM TUBE TOP SCH (08:17)
[2018-07-11] MEDS: MULTIVITAMIN LIQUID (CENTRUM) 60 ML BOTTLE PEG SCH (08:18)
[2018-07-11] MEDS: LEVOFLOXACIN INJ 750 MG in PREMIX 1 EACH IV SCH (13:01)
[2018-07-11] MEDS: LACTATED RINGERS 1,000 ML IV SCH (15:14)
[2018-07-11] MEDS: QUEtiapine 25 MG TABLET PEG SCH (20:59)
[2018-07-11] MEDS: BENZTROPINE 0.5 MG TABLET PEG SCH (20:59)
[2018-07-12] MEDS: LINEZOLID INJ 600 MG in PREMIX 1 EACH IV SCH ×3 (01:03→13:05)
[2018-07-12] MEDS: ALBUTEROL/IPRATROPIUM 3 ML NEB RESP TX SCH ×4 (01:36→19:12)
[2018-07-12] MEDS: PIPERACILLIN/TAZOBACTAM 3,375 MG in SODIUM CHLORIDE 0.9% 100 ML IV SCH ×3 (03:44→22:09)
[2018-07-12] MEDS: HYDROCORTISONE 100 MG VIAL IV SCH ×3 (03:45→22:10)
[2018-07-12 05:49] LABS: Basophils % 0.1 % (0.0-0.8); Hematocrit 34.5 VOL% (42.0-52.0); Hemoglobin 10.9 GM/DL (14.0-18.0); Immature Granulocytes % 0.5 %; Immature Granulocytes Absolute 0.05 #; Lymphocytes # 1.3 10*3/uL (1.4-4.0); Lymphocytes % 12.9 % (21.2-54.2); Mean Corpuscular HGB Conc 31.6 GM/DL (32-36); Mean Corpuscular Hemoglobin 27 PG (27-34); Mean Corpuscular Volume 84.1 FL (87-102); Mean Platelet Volume 12.3 FL (9.6-12.0); Monocytes % 9.6 % (1.7-12.7); Neutrophils # 7.8 10*3/uL (1.4-7.4); Neutrophils % 76.9 % (38.7-73.9); Platelet Count 180 T/CUMM (130-400); Red Cell Distribution Width 15.1 % (9.3-17.3); White Blood Count 10.2 T/CUMM (4-12)
[2018-07-12 06:06] LABS: Calcium 8.6 MG/DL (8.5-10.1); Osmolality,Calculated 285.1 MOS/KG (273-304); Potassium 3.3 MMOL/L (3.5-5.1)
[2018-07-12] MEDS: ASCORBIC ACID 500 MG TABLET PEG SCH ×2 (08:10→22:10)
[2018-07-12] MEDS: POTASSIUM CHLORIDE 20 MEQ PACK PEG SCH ×2 (08:10→22:10)
[2018-07-12] MEDS: DOCUSATE SODIUM 100 MG/10 ML UDCUP PEG SCH (08:10)
[2018-07-12] MEDS: PANTOPRAZOLE 40 MG TABLET PO SCH (08:10)
[2018-07-12] MEDS: FERROUS SULFATE 300 MG/5 ML UDCUP PEG SCH (08:10)
[2018-07-12] MEDS: LACTOBACILLUS ACIDOPHILUS/BULGARICUS 1 PACKET PEG SCH ×2 (08:11→22:10)
[2018-07-12] MEDS: COLLAGENASE OINT 30 GM TUBE TOP SCH (08:11)
[2018-07-12] MEDS: ZINC OXIDE PASTE 113 GM TUBE TOP SCH (08:11)
[2018-07-12] MEDS: SKIN HEALING OINT (AQUAPHOR) 50 GM TUBE TOP SCH (08:11)
[2018-07-12] MEDS: MULTIVITAMIN LIQUID (CENTRUM) 60 ML BOTTLE PEG SCH (08:15)
[2018-07-12] MEDS ORDERED: POTASSIUM CHLORIDE 20 MEQ/15 ML UDCUP PER TUBE ONE (12:06)
[2018-07-12] MEDS: BENZTROPINE 0.5 MG TABLET PEG SCH (22:09)
[2018-07-12] MEDS: QUEtiapine 25 MG TABLET PEG SCH (22:10)
[2018-07-13] MEDS: ALBUTEROL/IPRATROPIUM 3 ML NEB RESP TX SCH ×2 (00:01→07:51)
[2018-07-13] MEDS: LINEZOLID INJ 600 MG in PREMIX 1 EACH IV SCH (02:58)
[2018-07-13] MEDS: PIPERACILLIN/TAZOBACTAM 3,375 MG in SODIUM CHLORIDE 0.9% 100 ML IV SCH (04:52)
[2018-07-13 05:36] LABS: Basophils % 0.2 % (0.0-0.8); Hematocrit 38.5 VOL% (42.0-52.0); Hemoglobin 11.9 GM/DL (14.0-18.0); Immature Granulocytes % 0.6 %; Immature Granulocytes Absolute 0.04 #; Lymphocytes # 0.8 10*3/uL (1.4-4.0); Lymphocytes % 12.8 % (21.2-54.2); Mean Corpuscular HGB Conc 30.9 GM/DL (32-36); Mean Corpuscular Hemoglobin 26 PG (27-34); Mean Corpuscular Volume 85.6 FL (87-102); Mean Platelet Volume 11.8 FL (9.6-12.0); Monocytes # 0.4 10*3/uL (0.11-0.8); Monocytes % 6.3 % (1.7-12.7); Neutrophils # 5.1 10*3/uL (1.4-7.4); Neutrophils % 80.1 % (38.7-73.9); Platelet Count 206 T/CUMM (130-400); Red Cell Distribution Width 15.2 % (9.3-17.3); White Blood Count 6.3 T/CUMM (4-12)
[2018-07-13 05:53] LABS: Calcium 8.6 MG/DL (8.5-10.1); Osmolality,Calculated 283.4 MOS/KG (273-304); Potassium 4.2 MMOL/L (3.5-5.1)
[2018-07-13] MEDS: LACTATED RINGERS 1,000 ML IV SCH (07:52)
[2018-07-13] MEDS: COLLAGENASE OINT 30 GM TUBE TOP SCH (08:18)
[2018-07-13] MEDS: ZINC OXIDE PASTE 113 GM TUBE TOP SCH (08:18)
[2018-07-13] MEDS: POTASSIUM CHLORIDE 20 MEQ PACK PEG SCH (08:18)
[2018-07-13] MEDS: FERROUS SULFATE 300 MG/5 ML UDCUP PEG SCH (08:18)
[2018-07-13] MEDS: HYDROCORTISONE 100 MG VIAL IV SCH (08:18)
[2018-07-13] MEDS: PANTOPRAZOLE 40 MG TABLET PO SCH (08:18)
[2018-07-13] MEDS: DOCUSATE SODIUM 100 MG/10 ML UDCUP PEG SCH (08:18)
[2018-07-13] MEDS: ASCORBIC ACID 500 MG TABLET PEG SCH (08:18)
[2018-07-13] MEDS: MULTIVITAMIN LIQUID (CENTRUM) 60 ML BOTTLE PEG SCH (08:19)
[2018-07-13] MEDS: SKIN HEALING OINT (AQUAPHOR) 50 GM TUBE TOP SCH (08:19)
[2018-07-13] MEDS: LACTOBACILLUS ACIDOPHILUS/BULGARICUS 1 PACKET PEG SCH (08:19)
[2018-07-13 08:36] VITALS: BP 130/79
[2018-07-13] MEDS ORDERED: AMOXICILLIN/CLAV ES 600 125 ML/BOTTLE PEG SCH (21:00)
== END 2018-07-13 11:02 | DRG 177 ==
LOC: EDUNIT# → EDBD → N.ED 09:55 → N.EDINP 13:39 → SUATTDRO 13:39 → N.5E 14:16
PROVIDERS: ADMIT Internal Medicine Infectious Disease; ATTEND Internal Medicine

== ENCOUNTER 2018-07-29 11:30 | Inpatient (IN) ==
[2018-07-29] MEDS ORDERED: PIPERACILLIN/TAZOBACTAM 3,375 MG in SODIUM CHLORIDE 0.9% 100 ML IV STA (12:37)
[2018-07-29] MEDS ORDERED: SODIUM CHLORIDE 0.9% 1,000 ML IV STA (12:37)
[2018-07-29] MEDS ORDERED: ALBUTEROL 2.5 MG/3 ML NEB RESP TX STA (12:37)
[2018-07-29 14:57] LABS: Apearance,Urine Clear (Clear); Urine Color Yellow (Yellow)
[2018-07-29 14:58] LABS: Bacteria,Urine Few /HPF (Few); Bilirubin,Urine Negative (Negative); Blood, Urine Negative (Negative); Glucose,Urine (UA) Negative (Negative); Ketones,Urine Negative (Negative); Nitrite,Urine Positive (Negative); Protein,Urine Negative; Urine Urobilinogen 0.2 EU/DL (0.2-1.0); WBC,Urine 0-2 /HPF (0-6)
[2018-07-29 14:59] LABS: Basophils % 0.3 % (0.0-0.8); Eosinophils # 0.2 10*3/uL (0.0-0.87); Hematocrit 40.9 VOL% (42.0-52.0); Hemoglobin 12.4 GM/DL (14.0-18.0); Immature Granulocytes % 0.6 %; Immature Granulocytes Absolute 0.05 #; Lymphocytes # 1.3 10*3/uL (1.4-4.0); Lymphocytes % 14.3 % (21.2-54.2); Mean Corpuscular HGB Conc 30.3 GM/DL (32-36); Mean Corpuscular Hemoglobin 26 PG (27-34); Mean Corpuscular Volume 86.8 FL (87-102); Mean Platelet Volume 11.8 FL (9.6-12.0); Monocytes % 11.1 % (1.7-12.7); Neutrophils # 6.5 10*3/uL (1.4-7.4); Neutrophils % 71.7 % (38.7-73.9); Platelet Count 260 T/CUMM (130-400); Red Blood Count 4.71 MC/CUMM (3.8-5.5)
[2018-07-29 15:22] LABS: Albumin 2.9 G/DL (3.4-5.0); Bilirubin,Total 0.4 MG/DL (0.2-1.0); Calcium 8.4 MG/DL (8.5-10.1); Osmolality,Calculated 282.4 MOS/KG (273-304); Potassium 4.5 MMOL/L (3.5-5.1); Total Protein 7.1 G/DL (6.4-8.3)
[2018-07-29] MEDS ORDERED: ALUMINUM/MAGNES/SIMETH MAX STR 30 ML UDCUP PEG PRN (15:40)
[2018-07-29] MEDS ORDERED: MAGNESIUM HYDROXIDE SUSP 30 ML UDCUP PEG PRN (15:40)
[2018-07-29] MEDS ORDERED: ACETAMINOPHEN 325 MG/10.15 ML UDCUP PEG PRN (15:40)
[2018-07-29] MEDS ORDERED: ACETAMINOPHEN 325 MG TABLET PO PRN (15:46)
[2018-07-29] MEDS ORDERED: ONDANSETRON 4 MG/2 ML VIAL IV PRN (15:46)
[2018-07-29] MEDS: SODIUM CHLORIDE 0.45% 1,000 ML IV SCH (18:23)
[2018-07-29] MEDS: HEPARIN 5,000 UNIT/1 ML VIAL SUBCUT SCH (18:23)
[2018-07-29] MEDS: ALBUTEROL 2.5 MG/3 ML NEB RESP TX SCH (19:56)
[2018-07-29] MEDS: VANCOMYCIN INJ 750 MG in SODIUM CHLORIDE 0.9% 250 ML IV SCH (20:22)
[2018-07-29] MEDS: BENZTROPINE 0.5 MG TABLET PEG SCH (20:23)
[2018-07-29] MEDS: LACTOBACILLUS ACIDOPHILUS/BULGARICUS CAPLET PEG SCH (20:23)
[2018-07-29] MEDS: QUEtiapine 25 MG TABLET PEG SCH (20:24)
[2018-07-29] MEDS: POTASSIUM CHLORIDE 20 MEQ PACK PEG SCH (20:24)
[2018-07-29] MEDS: ASCORBIC ACID 500 MG TABLET PEG SCH (20:24)
[2018-07-29] MEDS: RANITIDINE 150 MG/10 ML 30 ML BOTTLE PEG SCH (20:33)
[2018-07-30] MEDS: ALBUTEROL 2.5 MG/3 ML NEB RESP TX SCH ×4 (00:51→19:40)
[2018-07-30] MEDS: PIPERACILLIN/TAZOBACTAM 3,375 MG in SODIUM CHLORIDE 0.9% 100 ML IV SCH ×4 (01:14→23:31)
[2018-07-30] MEDS: HEPARIN 5,000 UNIT/1 ML VIAL SUBCUT SCH ×3 (01:14→17:20)
[2018-07-30 05:33] LABS: Albumin 2.7 G/DL (3.4-5.0); Bilirubin,Total 0.7 MG/DL (0.2-1.0); Calcium 8.7 MG/DL (8.5-10.1); Osmolality,Calculated 275.8 MOS/KG (273-304); Potassium 4.1 MMOL/L (3.5-5.1); Total Protein 6.9 G/DL (6.4-8.3)
[2018-07-30 05:42] LABS: Basophils % 0.4 % (0.0-0.8); Eosinophils # 0.2 10*3/uL (0.0-0.87); Eosinophils % 3.1 % (0.00-10.9); Immature Granulocytes % 0.5 %; Immature Granulocytes Absolute 0.04 #; Lymphocytes # 1.5 10*3/uL (1.4-4.0); Lymphocytes % 20.1 % (21.2-54.2); Mean Corpuscular HGB Conc 29.8 GM/DL (32-36); Mean Corpuscular Hemoglobin 26 PG (27-34); Mean Corpuscular Volume 87.7 FL (87-102); Mean Platelet Volume 13.3 FL (9.6-12.0); Monocytes # 0.8 10*3/uL (0.11-0.8); Neutrophils # 4.8 10*3/uL (1.4-7.4); Neutrophils % 64.9 % (38.7-73.9); Platelet Count 94 T/CUMM (130-400); Red Blood Count 4.79 MC/CUMM (3.8-5.5); Red Cell Distribution Width 15.3 % (9.3-17.3); White Blood Count 7.5 T/CUMM (4-12)
[2018-07-30 05:51] LABS: Hemoglobin 13.1 GM/DL (14.0-18.0)
[2018-07-30 06:16] LABS: Eosinophils 4 % (0-10); Hypochromasia 1+; Lymphocytes 25 % (20-55); Ovalocytes Slight; Segmented Neutrophils 61 % (50-85); Total Cells Counted 100
[2018-07-30] MEDS: VANCOMYCIN INJ 750 MG in SODIUM CHLORIDE 0.9% 250 ML IV SCH ×2 (08:55→19:40)
[2018-07-30] MEDS: AMINO ACIDS PEG SCH (09:00)
[2018-07-30] MEDS: PROTEIN HYDROLYS PEG SCH (09:00)
[2018-07-30] MEDS: COLLAGENASE OINT 30 GM TUBE TOP SCH (09:01)
[2018-07-30] MEDS: ZINC OXIDE PASTE 113 GM TUBE TOP SCH (09:01)
[2018-07-30] MEDS: SKIN HEALING OINT (AQUAPHOR) 50 GM TUBE TOP SCH (09:01)
[2018-07-30] MEDS: RANITIDINE 150 MG/10 ML 30 ML BOTTLE PEG SCH ×2 (09:02→21:27)
[2018-07-30] MEDS: FERROUS SULFATE 300 MG/5 ML UDCUP PEG SCH (09:02)
[2018-07-30] MEDS: ASCORBIC ACID 500 MG TABLET PEG SCH ×2 (09:02→21:31)
[2018-07-30] MEDS: LACTOBACILLUS ACIDOPHILUS/BULGARICUS CAPLET PEG SCH ×2 (09:02→21:28)
[2018-07-30] MEDS: POTASSIUM CHLORIDE 20 MEQ PACK PEG SCH ×2 (09:02→21:28)
[2018-07-30] MEDS: DOCUSATE SODIUM 100 MG/10 ML UDCUP PEG SCH (09:02)
[2018-07-30] MEDS: MULTIVITAMIN LIQUID (CENTRUM) 60 ML BOTTLE PEG SCH (09:03)
[2018-07-30] MEDS: SODIUM CHLORIDE 0.45% 1,000 ML IV SCH (14:27)
[2018-07-30] MEDS: methylPREDNISolone SOD SUC 125 MG/2 ML VIAL IV SCH ×2 (15:33→23:31)
[2018-07-30] MEDS: METOCLOPRAMIDE 10 MG/10 ML UDCUP PO SCH (17:15)
[2018-07-30] MEDS: BENZTROPINE 0.5 MG TABLET PEG SCH (21:28)
[2018-07-30] MEDS: QUEtiapine 25 MG TABLET PEG SCH (21:29)
[2018-07-31] MEDS: ALBUTEROL 2.5 MG/3 ML NEB RESP TX SCH ×5 (01:06→23:55)
[2018-07-31] MEDS: HEPARIN 5,000 UNIT/1 ML VIAL SUBCUT SCH ×3 (01:29→15:59)
[2018-07-31] MEDS: METOCLOPRAMIDE 10 MG/10 ML UDCUP PO SCH ×4 (01:31→17:47)
[2018-07-31 05:24] LABS: Hematocrit 41.9 VOL% (42.0-52.0); Hemoglobin 12.8 GM/DL (14.0-18.0); Immature Granulocytes % 0.3 %; Immature Granulocytes Absolute 0.02 #; Lymphocytes # 0.5 10*3/uL (1.4-4.0); Lymphocytes % 8.3 % (21.2-54.2); Mean Corpuscular HGB Conc 30.5 GM/DL (32-36); Mean Corpuscular Hemoglobin 26 PG (27-34); Mean Corpuscular Volume 85.9 FL (87-102); Mean Platelet Volume 12.2 FL (9.6-12.0); Monocytes # 0.1 10*3/uL (0.11-0.8); Monocytes % 0.9 % (1.7-12.7); Neutrophils # 5.9 10*3/uL (1.4-7.4); Neutrophils % 90.5 % (38.7-73.9); Platelet Count 232 T/CUMM (130-400); Red Blood Count 4.88 MC/CUMM (3.8-5.5); Red Cell Distribution Width 15.3 % (9.3-17.3); White Blood Count 6.5 T/CUMM (4-12)
[2018-07-31 05:59] LABS: Albumin 3.1 G/DL (3.4-5.0); Calcium 9.2 MG/DL (8.5-10.1); Osmolality,Calculated 285.3 MOS/KG (273-304); Potassium 4.8 MMOL/L (3.5-5.1); Total Protein 7.7 G/DL (6.4-8.3)
[2018-07-31] MEDS: methylPREDNISolone SOD SUC 125 MG/2 ML VIAL IV SCH ×2 (06:31→15:59)
[2018-07-31] MEDS: PIPERACILLIN/TAZOBACTAM 3,375 MG in SODIUM CHLORIDE 0.9% 100 ML IV SCH ×2 (06:31→15:58)
[2018-07-31] MEDS: ASCORBIC ACID 500 MG TABLET PEG SCH ×2 (08:32→22:09)
[2018-07-31] MEDS: FERROUS SULFATE 300 MG/5 ML UDCUP PEG SCH (08:32)
[2018-07-31] MEDS: VANCOMYCIN INJ 750 MG in SODIUM CHLORIDE 0.9% 250 ML IV SCH (08:32)
[2018-07-31] MEDS: POTASSIUM CHLORIDE 20 MEQ PACK PEG SCH ×2 (08:32→22:09)
[2018-07-31] MEDS: LACTOBACILLUS ACIDOPHILUS/BULGARICUS CAPLET PEG SCH ×2 (08:32→22:09)
[2018-07-31] MEDS: MULTIVITAMIN LIQUID (CENTRUM) 60 ML BOTTLE PEG SCH (08:33)
[2018-07-31] MEDS: PROTEIN HYDROLYS PEG SCH (08:33)
[2018-07-31] MEDS: DOCUSATE SODIUM 100 MG/10 ML UDCUP PEG SCH (08:33)
[2018-07-31] MEDS: AMINO ACIDS PEG SCH (08:33)
[2018-07-31] MEDS: SKIN HEALING OINT (AQUAPHOR) 50 GM TUBE TOP SCH (08:33)
[2018-07-31] MEDS: ZINC OXIDE PASTE 113 GM TUBE TOP SCH (08:33)
[2018-07-31] MEDS: COLLAGENASE OINT 30 GM TUBE TOP SCH (08:37)
[2018-07-31] MEDS: RANITIDINE 150 MG/10 ML 30 ML BOTTLE PEG SCH ×2 (08:37→22:10)
[2018-07-31] MEDS: VANCOMYCIN INJ 1,000 MG in SODIUM CHLORIDE 0.9% 250 ML IV SCH (20:31)
[2018-07-31] MEDS: BENZTROPINE 0.5 MG TABLET PEG SCH (22:09)
[2018-07-31] MEDS: QUEtiapine 25 MG TABLET PEG SCH (22:09)
[2018-08-01] MEDS: HEPARIN 5,000 UNIT/1 ML VIAL SUBCUT SCH ×3 (03:08→16:07)
[2018-08-01] MEDS: METOCLOPRAMIDE 10 MG/10 ML UDCUP PO SCH ×4 (03:08→17:08)
[2018-08-01] MEDS: methylPREDNISolone SOD SUC 125 MG/2 ML VIAL IV SCH ×3 (03:09→15:21)
[2018-08-01] MEDS: PIPERACILLIN/TAZOBACTAM 3,375 MG in SODIUM CHLORIDE 0.9% 100 ML IV SCH ×3 (03:09→15:21)
[2018-08-01 06:00] LABS: Basophils % 0.1 % (0.0-0.8); Hematocrit 38.1 VOL% (42.0-52.0); Hemoglobin 11.7 GM/DL (14.0-18.0); Immature Granulocytes % 0.6 %; Immature Granulocytes Absolute 0.07 #; Lymphocytes % 9.1 % (21.2-54.2); Mean Corpuscular HGB Conc 30.7 GM/DL (32-36); Mean Corpuscular Hemoglobin 26 PG (27-34); Mean Corpuscular Volume 85.4 FL (87-102); Mean Platelet Volume 11.3 FL (9.6-12.0); Monocytes # 0.5 10*3/uL (0.11-0.8); Monocytes % 4.2 % (1.7-12.7); Neutrophils # 9.4 10*3/uL (1.4-7.4); Platelet Count 227 T/CUMM (130-400); Red Blood Count 4.46 MC/CUMM (3.8-5.5); Red Cell Distribution Width 15.1 % (9.3-17.3); White Blood Count 10.9 T/CUMM (4-12)
[2018-08-01 06:32] LABS: Alanine Aminotransferase 20 U/L (16-61); Albumin 2.9 G/DL (3.4-5.0); Alkaline Phosphatase 96 U/L (45-117); Aspartate Amino Transferase 12 U/L (0-37); Bilirubin,Total < 0.39 MG/DL (0.2-1.0); Blood Urea Nitrogen 23 MG/DL (7-18); Calcium 8.5 MG/DL (8.5-10.1); Glucose 103 MG/DL (74-106); Osmolality,Calculated 289.8 MOS/KG (273-304); Potassium 3.9 MMOL/L (3.5-5.1); Sodium 144 MMOL/L (136-145); Total Protein 6.9 G/DL (6.4-8.3)
[2018-08-01] MEDS: ALBUTEROL 2.5 MG/3 ML NEB RESP TX SCH ×3 (07:30→20:05)
[2018-08-01] MEDS: FERROUS SULFATE 300 MG/5 ML UDCUP PEG SCH (08:17)
[2018-08-01] MEDS: DOCUSATE SODIUM 100 MG/10 ML UDCUP PEG SCH (08:17)
[2018-08-01] MEDS: LACTOBACILLUS ACIDOPHILUS/BULGARICUS CAPLET PEG SCH ×2 (08:17→20:07)
[2018-08-01] MEDS: ASCORBIC ACID 500 MG TABLET PEG SCH ×2 (08:17→20:07)
[2018-08-01] MEDS: POTASSIUM CHLORIDE 20 MEQ PACK PEG SCH ×2 (08:17→20:07)
[2018-08-01] MEDS: VANCOMYCIN INJ 1,000 MG in SODIUM CHLORIDE 0.9% 250 ML IV SCH ×2 (08:17→20:06)
[2018-08-01] MEDS: ZINC OXIDE PASTE 113 GM TUBE TOP SCH (08:18)
[2018-08-01] MEDS: SKIN HEALING OINT (AQUAPHOR) 50 GM TUBE TOP SCH (08:19)
[2018-08-01] MEDS: AMINO ACIDS PEG SCH (08:19)
[2018-08-01] MEDS: PROTEIN HYDROLYS PEG SCH (08:19)
[2018-08-01] MEDS: COLLAGENASE OINT 30 GM TUBE TOP SCH (08:19)
[2018-08-01] MEDS: RANITIDINE 150 MG/10 ML 30 ML BOTTLE PEG SCH ×2 (08:19→20:05)
[2018-08-01] MEDS: MULTIVITAMIN LIQUID (CENTRUM) 60 ML BOTTLE PEG SCH (08:19)
[2018-08-01] MEDS: SODIUM CHLORIDE 0.45% 1,000 ML IV SCH (14:38)
[2018-08-01] MEDS: BENZTROPINE 0.5 MG TABLET PEG SCH (20:07)
[2018-08-01] MEDS: QUEtiapine 25 MG TABLET PEG SCH (20:07)
[2018-08-02] MEDS: METOCLOPRAMIDE 10 MG/10 ML UDCUP PO SCH ×2 (00:34→06:10)
[2018-08-02] MEDS: methylPREDNISolone SOD SUC 125 MG/2 ML VIAL IV SCH ×2 (00:34→09:00)
[2018-08-02] MEDS: HEPARIN 5,000 UNIT/1 ML VIAL SUBCUT SCH (00:35)
[2018-08-02] MEDS: PIPERACILLIN/TAZOBACTAM 3,375 MG in SODIUM CHLORIDE 0.9% 100 ML IV SCH ×2 (00:35→06:10)
[2018-08-02] MEDS: ALBUTEROL 2.5 MG/3 ML NEB RESP TX SCH ×2 (01:43→07:30)
[2018-08-02 06:11] LABS: Hematocrit 38.5 VOL% (42.0-52.0); Hemoglobin 11.9 GM/DL (14.0-18.0); Immature Granulocytes % 0.4 %; Immature Granulocytes Absolute 0.04 #; Lymphocytes # 0.7 10*3/uL (1.4-4.0); Mean Corpuscular HGB Conc 30.9 GM/DL (32-36); Mean Corpuscular Hemoglobin 27 PG (27-34); Mean Corpuscular Volume 85.9 FL (87-102); Mean Platelet Volume 11.8 FL (9.6-12.0); Monocytes # 0.3 10*3/uL (0.11-0.8); Monocytes % 3.2 % (1.7-12.7); Neutrophils # 9.1 10*3/uL (1.4-7.4); Neutrophils % 89.4 % (38.7-73.9); Platelet Count 215 T/CUMM (130-400); Red Blood Count 4.48 MC/CUMM (3.8-5.5); Red Cell Distribution Width 15.2 % (9.3-17.3); White Blood Count 10.2 T/CUMM (4-12)
[2018-08-02 06:25] LABS: Albumin 2.9 G/DL (3.4-5.0); Bilirubin,Total 0.7 MG/DL (0.2-1.0); Calcium 8.6 MG/DL (8.5-10.1); Osmolality,Calculated 284.3 MOS/KG (273-304); Potassium 4.2 MMOL/L (3.5-5.1); Total Protein 6.8 G/DL (6.4-8.3)
[2018-08-02 08:27] VITALS: BP 115/66
[2018-08-02] MEDS: VANCOMYCIN INJ 1,000 MG in SODIUM CHLORIDE 0.9% 250 ML IV SCH (09:04)
== END 2018-08-02 09:27 | DRG 177 ==
LOC: EDUNIT# → EDBD → N.ED 11:30 → N.EDINP 15:46 → N.5E 17:35
PROVIDERS: ADMIT Internal Medicine; ATTEND Internal Medicine

== ENCOUNTER 2018-08-07 12:47 | Inpatient (IN) ==
[2018-08-07] MEDS ORDERED: ALBUTEROL/IPRATROPIUM 3 ML NEB RESP TX STA (13:06)
[2018-08-07] MEDS ORDERED: PIPERACILLIN/TAZOBACTAM 3,375 MG in SODIUM CHLORIDE 0.9% 100 ML IV STA ×2 (13:06→13:46)
[2018-08-07] MEDS ORDERED: SODIUM CHLORIDE 0.9% 1,000 ML IV STA (13:11)
[2018-08-07] MEDS ORDERED: SODIUM CHLORIDE 0.9% 1,800 ML IV ONE (13:39)
[2018-08-07 15:05] LABS: Albumin 3.9 G/DL (3.4-5.0); Bilirubin,Total 0.9 MG/DL (0.2-1.0); Calcium 9.2 MG/DL (8.5-10.1); Potassium 4.8 MMOL/L (3.5-5.1); Total Protein 8.6 G/DL (6.4-8.3)
[2018-08-07 15:20] LABS: Basophils % 0.4 % (0.0-0.8); Eosinophils % 0.3 % (0.00-10.9); Hematocrit 53.7 VOL% (42.0-52.0); Hemoglobin 16.5 GM/DL (14.0-18.0); Immature Granulocytes % 0.7 %; Immature Granulocytes Absolute 0.08 #; Lymphocytes # 0.5 10*3/uL (1.4-4.0); Lymphocytes % 4.7 % (21.2-54.2); Mean Corpuscular HGB Conc 30.7 GM/DL (32-36); Mean Corpuscular Hemoglobin 27 PG (27-34); Mean Corpuscular Volume 87.2 FL (87-102); Mean Platelet Volume 12.4 FL (9.6-12.0); Monocytes # 0.8 10*3/uL (0.11-0.8); Monocytes % 7.1 % (1.7-12.7); Neutrophils # 9.3 10*3/uL (1.4-7.4); Neutrophils % 86.8 % (38.7-73.9); Platelet Count 209 T/CUMM (130-400); Red Blood Count 6.16 MC/CUMM (3.8-5.5); Red Cell Distribution Width 16.8 % (9.3-17.3); White Blood Count 10.7 T/CUMM (4-12)
[2018-08-07 15:24] LABS: Lymphocytes 5 % (20-55); Platelet Estimate Normal; Segmented Neutrophils 89 % (50-85); Total Cells Counted 100
[2018-08-07] MEDS: LEVOFLOXACIN INJ 750 MG in PREMIX 1 EACH IV SCH (15:50)
[2018-08-07] MEDS ORDERED: ONDANSETRON 4 MG/2 ML VIAL IV PRN (16:24)
[2018-08-07] MEDS ORDERED: PROMETHAZINE 25 MG/1 ML VIAL IM PRN (16:24)
[2018-08-07] MEDS ORDERED: FUROSEMIDE 20 MG/2 ML VIAL IV STA (16:31)
[2018-08-07] MEDS ORDERED: MAGNESIUM HYDROXIDE SUSP 30 ML UDCUP PEG PRN (16:32)
[2018-08-07] MEDS ORDERED: ACETAMINOPHEN 160 MG/5 ML UDCUP PEG PRN (16:32)
[2018-08-07] MEDS ORDERED: ALUMINUM/MAGNES/SIMETH MAX STR 30 ML UDCUP PEG PRN (16:32)
[2018-08-07] MEDS: METOCLOPRAMIDE 10 MG/10 ML UDCUP PEG SCH ×2 (18:47→23:32)
[2018-08-07] MEDS: VANCOMYCIN INJ 750 MG in SODIUM CHLORIDE 0.9% 250 ML IV SCH (19:54)
[2018-08-07] MEDS: LACTOBACILLUS ACIDOPHILUS/BULGARICUS CAPLET PEG SCH (20:21)
[2018-08-07] MEDS: ASCORBIC ACID 500 MG TABLET PEG SCH (20:22)
[2018-08-07] MEDS: QUEtiapine 25 MG TABLET PEG SCH (20:22)
[2018-08-07] MEDS: RANITIDINE 150 MG/10 ML 30 ML BOTTLE PEG SCH (20:22)
[2018-08-07] MEDS: BENZTROPINE 0.5 MG TABLET PEG SCH (20:22)
[2018-08-07] MEDS: PIPERACILLIN/TAZOBACTAM 3,375 MG in SODIUM CHLORIDE 0.9% 100 ML IV SCH (21:15)
[2018-08-08 05:19] LABS: Basophils % 0.2 % (0.0-0.8); Eosinophils % 0.1 % (0.00-10.9); Hematocrit 42.3 VOL% (42.0-52.0); Hemoglobin 13.5 GM/DL (14.0-18.0); Immature Granulocytes % 0.4 %; Immature Granulocytes Absolute 0.05 #; Lymphocytes # 1.2 10*3/uL (1.4-4.0); Lymphocytes % 11.1 % (21.2-54.2); Mean Corpuscular HGB Conc 31.9 GM/DL (32-36); Mean Corpuscular Hemoglobin 27 PG (27-34); Mean Corpuscular Volume 83.9 FL (87-102); Mean Platelet Volume 11.7 FL (9.6-12.0); Monocytes # 0.8 10*3/uL (0.11-0.8); Monocytes % 6.9 % (1.7-12.7); Neutrophils # 9.1 10*3/uL (1.4-7.4); Neutrophils % 81.3 % (38.7-73.9); Platelet Count 214 T/CUMM (130-400); Red Blood Count 5.04 MC/CUMM (3.8-5.5); Red Cell Distribution Width 15.7 % (9.3-17.3); White Blood Count 11.2 T/CUMM (4-12)
[2018-08-08] MEDS: METOCLOPRAMIDE 10 MG/10 ML UDCUP PEG SCH ×4 (05:29→23:44)
[2018-08-08] MEDS: PIPERACILLIN/TAZOBACTAM 3,375 MG in SODIUM CHLORIDE 0.9% 100 ML IV SCH ×3 (05:29→22:23)
[2018-08-08 05:52] LABS: Band Neutrophils 14 % (0-10); Lymphocytes 13 % (20-55); Metamyelocytes 1 %; Platelet Estimate Normal; Segmented Neutrophils 69 % (50-85); Total Cells Counted 100
[2018-08-08 05:53] LABS: Calcium 8.7 MG/DL (8.5-10.1); Osmolality,Calculated 279.7 MOS/KG (273-304); Potassium 3.4 MMOL/L (3.5-5.1); Total Protein 7.2 G/DL (6.4-8.3)
[2018-08-08] MEDS ORDERED: NON-FORMULARY MEDICATION (Amino Acids/Protein Hydrolys [Pro-Stat Awc Liquid] 30 ML) PEG SCH (09:00)
[2018-08-08] MEDS: SKIN HEALING OINT (AQUAPHOR) 50 GM TUBE TOP SCH (09:44)
[2018-08-08] MEDS: ZINC OXIDE PASTE 113 GM TUBE TOP SCH (09:44)
[2018-08-08] MEDS: ASCORBIC ACID 500 MG TABLET PEG SCH ×2 (09:45→20:49)
[2018-08-08] MEDS: LACTOBACILLUS ACIDOPHILUS/BULGARICUS CAPLET PEG SCH ×2 (09:45→20:49)
[2018-08-08] MEDS: FERROUS SULFATE 300 MG/5 ML UDCUP PEG SCH (09:45)
[2018-08-08] MEDS: VANCOMYCIN INJ 750 MG in SODIUM CHLORIDE 0.9% 250 ML IV SCH ×2 (09:45→20:41)
[2018-08-08] MEDS: DOCUSATE SODIUM 100 MG/10 ML UDCUP PEG SCH (09:45)
[2018-08-08] MEDS: MULTIVITAMIN LIQUID (CENTRUM) 60 ML BOTTLE PEG SCH (09:46)
[2018-08-08] MEDS: RANITIDINE 150 MG/10 ML 30 ML BOTTLE PEG SCH ×2 (09:47→20:40)
[2018-08-08] MEDS: COLLAGENASE OINT 30 GM TUBE TOP SCH (09:51)
[2018-08-08] MEDS: LEVOFLOXACIN INJ 750 MG in PREMIX 1 EACH IV SCH (15:18)
[2018-08-08] MEDS: QUEtiapine 25 MG TABLET PEG SCH (20:49)
[2018-08-08] MEDS: BENZTROPINE 0.5 MG TABLET PEG SCH (20:49)
[2018-08-09 05:06] LABS: Basophils % 0.2 % (0.0-0.8); Eosinophils # 0.1 10*3/uL (0.0-0.87); Eosinophils % 0.5 % (0.00-10.9); Hematocrit 38.3 VOL% (42.0-52.0); Immature Granulocytes % 0.4 %; Immature Granulocytes Absolute 0.04 #; Lymphocytes # 1.5 10*3/uL (1.4-4.0); Lymphocytes % 15.1 % (21.2-54.2); Mean Corpuscular HGB Conc 31.3 GM/DL (32-36); Mean Corpuscular Hemoglobin 27 PG (27-34); Mean Corpuscular Volume 84.5 FL (87-102); Mean Platelet Volume 11.6 FL (9.6-12.0); Monocytes # 0.9 10*3/uL (0.11-0.8); Monocytes % 9.2 % (1.7-12.7); Neutrophils # 7.1 10*3/uL (1.4-7.4); Neutrophils % 74.6 % (38.7-73.9); Platelet Count 187 T/CUMM (130-400); Red Blood Count 4.53 MC/CUMM (3.8-5.5); Red Cell Distribution Width 15.6 % (9.3-17.3); White Blood Count 9.6 T/CUMM (4-12)
[2018-08-09 05:26] LABS: Albumin 2.7 G/DL (3.4-5.0); Bilirubin,Total 1.2 MG/DL (0.2-1.0); Calcium 8.5 MG/DL (8.5-10.1); Osmolality,Calculated 281.4 MOS/KG (273-304); Total Protein 6.9 G/DL (6.4-8.3)
[2018-08-09] MEDS: PIPERACILLIN/TAZOBACTAM 3,375 MG in SODIUM CHLORIDE 0.9% 100 ML IV SCH ×2 (05:32→17:40)
[2018-08-09] MEDS: METOCLOPRAMIDE 10 MG/10 ML UDCUP PEG SCH ×3 (05:32→19:25)
[2018-08-09 05:34] LABS: Band Neutrophils 6 % (0-10); Eosinophils 1 % (0-10); Hypochromasia 1+; Lymphocytes 15 % (20-55); Ovalocytes Slight; Platelet Estimate Adequate; Segmented Neutrophils 69 % (50-85); Total Cells Counted 100
[2018-08-09] MEDS: FERROUS SULFATE 300 MG/5 ML UDCUP PEG SCH (10:54)
[2018-08-09] MEDS: POTASSIUM CHLORIDE 20 MEQ/15 ML UDCUP PER TUBE PRN ×2 (10:54→12:26)
[2018-08-09] MEDS: LACTOBACILLUS ACIDOPHILUS/BULGARICUS CAPLET PEG SCH ×2 (10:58→22:02)
[2018-08-09] MEDS: MULTIVITAMIN LIQUID (CENTRUM) 60 ML BOTTLE PEG SCH (10:58)
[2018-08-09] MEDS: ASCORBIC ACID 500 MG TABLET PEG SCH ×2 (10:59→22:02)
[2018-08-09] MEDS: DOCUSATE SODIUM 100 MG/10 ML UDCUP PEG SCH (11:04)
[2018-08-09] MEDS: VANCOMYCIN INJ 750 MG in SODIUM CHLORIDE 0.9% 250 ML IV SCH (12:26)
[2018-08-09] MEDS: SKIN HEALING OINT (AQUAPHOR) 50 GM TUBE TOP SCH (12:26)
[2018-08-09] MEDS: COLLAGENASE OINT 30 GM TUBE TOP SCH (12:27)
[2018-08-09] MEDS: RANITIDINE 150 MG/10 ML 30 ML BOTTLE PEG SCH ×2 (12:27→22:06)
[2018-08-09] MEDS: ZINC OXIDE PASTE 113 GM TUBE TOP SCH (12:27)
[2018-08-09] MEDS: LEVOFLOXACIN INJ 750 MG in PREMIX 1 EACH IV SCH (17:40)
[2018-08-09] MEDS: BENZTROPINE 0.5 MG TABLET PEG SCH (22:02)
[2018-08-09] MEDS: QUEtiapine 25 MG TABLET PEG SCH (22:03)
[2018-08-10] MEDS: METOCLOPRAMIDE 10 MG/10 ML UDCUP PEG SCH ×5 (01:00→23:44)
[2018-08-10] MEDS: VANCOMYCIN INJ 750 MG in SODIUM CHLORIDE 0.9% 250 ML IV SCH ×2 (01:00→16:59)
[2018-08-10] MEDS: PIPERACILLIN/TAZOBACTAM 3,375 MG in SODIUM CHLORIDE 0.9% 100 ML IV SCH ×3 (03:26→17:19)
[2018-08-10 05:02] LABS: Basophils % 0.4 % (0.0-0.8); Eosinophils # 0.3 10*3/uL (0.0-0.87); Eosinophils % 3.3 % (0.00-10.9); Hematocrit 36.5 VOL% (42.0-52.0); Hemoglobin 11.3 GM/DL (14.0-18.0); Immature Granulocytes % 0.5 %; Immature Granulocytes Absolute 0.04 #; Lymphocytes # 1.7 10*3/uL (1.4-4.0); Lymphocytes % 21.1 % (21.2-54.2); Mean Corpuscular Hemoglobin 27 PG (27-34); Mean Corpuscular Volume 86.1 FL (87-102); Mean Platelet Volume 11.8 FL (9.6-12.0); Monocytes # 0.7 10*3/uL (0.11-0.8); Monocytes % 8.3 % (1.7-12.7); Neutrophils # 5.3 10*3/uL (1.4-7.4); Neutrophils % 66.4 % (38.7-73.9); Platelet Count 179 T/CUMM (130-400); Red Blood Count 4.24 MC/CUMM (3.8-5.5); Red Cell Distribution Width 15.6 % (9.3-17.3)
[2018-08-10 05:29] LABS: Eosinophils 3 % (0-10); Lymphocytes 16 % (20-55); Platelet Estimate Adequate; Polychromasia Few; Segmented Neutrophils 73 % (50-85); Total Cells Counted 100
[2018-08-10 05:40] LABS: Albumin 2.6 G/DL (3.4-5.0); Bilirubin,Total 1.2 MG/DL (0.2-1.0); Osmolality,Calculated 288.7 MOS/KG (273-304); Potassium 3.4 MMOL/L (3.5-5.1)
[2018-08-10 05:46] LABS: Prealbumin 13.5 MG/DL (20-40)
[2018-08-10] MEDS: DOCUSATE SODIUM 100 MG/10 ML UDCUP PEG SCH (09:49)
[2018-08-10] MEDS: MULTIVITAMIN LIQUID (CENTRUM) 60 ML BOTTLE PEG SCH (09:49)
[2018-08-10] MEDS: LACTOBACILLUS ACIDOPHILUS/BULGARICUS CAPLET PEG SCH ×2 (09:50→20:27)
[2018-08-10] MEDS: SKIN HEALING OINT (AQUAPHOR) 50 GM TUBE TOP SCH (10:04)
[2018-08-10] MEDS: COLLAGENASE OINT 30 GM TUBE TOP SCH (10:04)
[2018-08-10] MEDS: FERROUS SULFATE 300 MG/5 ML UDCUP PEG SCH (10:04)
[2018-08-10] MEDS: ZINC OXIDE PASTE 113 GM TUBE TOP SCH (10:04)
[2018-08-10] MEDS: RANITIDINE 150 MG/10 ML 30 ML BOTTLE PEG SCH ×2 (10:05→23:44)
[2018-08-10] MEDS: ASCORBIC ACID 500 MG TABLET PEG SCH ×2 (10:05→20:28)
[2018-08-10] MEDS: POTASSIUM CHLORIDE 20 MEQ/15 ML UDCUP PER TUBE PRN ×2 (13:18→15:12)
[2018-08-10] MEDS: LEVOFLOXACIN INJ 750 MG in PREMIX 1 EACH IV SCH (13:44)
[2018-08-10] MEDS: VANCOMYCIN INJ 1,000 MG in SODIUM CHLORIDE 0.9% 250 ML IV SCH (15:12)
[2018-08-10] MEDS: BENZTROPINE 0.5 MG TABLET PEG SCH (20:28)
[2018-08-10] MEDS: QUEtiapine 25 MG TABLET PEG SCH (20:28)
[2018-08-11] MEDS: VANCOMYCIN INJ 1,000 MG in SODIUM CHLORIDE 0.9% 250 ML IV SCH (01:44)
[2018-08-11] MEDS: PIPERACILLIN/TAZOBACTAM 3,375 MG in SODIUM CHLORIDE 0.9% 100 ML IV SCH ×2 (03:21→09:53)
[2018-08-11 05:19] LABS: Albumin 2.5 G/DL (3.4-5.0); Calcium 8.1 MG/DL (8.5-10.1); Osmolality,Calculated 289.7 MOS/KG (273-304); Potassium 3.1 MMOL/L (3.5-5.1); Total Protein 6.2 G/DL (6.4-8.3)
[2018-08-11 05:21] LABS: Basophils % 0.3 % (0.0-0.8); Eosinophils # 0.3 10*3/uL (0.0-0.87); Eosinophils % 3.9 % (0.00-10.9); Hematocrit 33.9 VOL% (42.0-52.0); Hemoglobin 10.5 GM/DL (14.0-18.0); Immature Granulocytes % 0.4 %; Immature Granulocytes Absolute 0.03 #; Lymphocytes # 1.4 10*3/uL (1.4-4.0); Lymphocytes % 17.6 % (21.2-54.2); Mean Corpuscular Hemoglobin 27 PG (27-34); Mean Corpuscular Volume 86.7 FL (87-102); Mean Platelet Volume 13.1 FL (9.6-12.0); Monocytes # 0.6 10*3/uL (0.11-0.8); Neutrophils # 5.6 10*3/uL (1.4-7.4); Neutrophils % 69.8 % (38.7-73.9); Platelet Count 186 T/CUMM (130-400); Red Blood Count 3.91 MC/CUMM (3.8-5.5); Red Cell Distribution Width 15.3 % (9.3-17.3)
[2018-08-11] MEDS: METOCLOPRAMIDE 10 MG/10 ML UDCUP PEG SCH (06:05)
[2018-08-11] MEDS: RANITIDINE 150 MG/10 ML 30 ML BOTTLE PEG SCH (09:47)
[2018-08-11] MEDS: DOCUSATE SODIUM 100 MG/10 ML UDCUP PEG SCH (09:49)
[2018-08-11] MEDS: FERROUS SULFATE 300 MG/5 ML UDCUP PEG SCH (09:49)
[2018-08-11] MEDS: MULTIVITAMIN LIQUID (CENTRUM) 60 ML BOTTLE PEG SCH (09:49)
[2018-08-11] MEDS: ASCORBIC ACID 500 MG TABLET PEG SCH (09:51)
[2018-08-11] MEDS: LACTOBACILLUS ACIDOPHILUS/BULGARICUS CAPLET PEG SCH (09:52)
[2018-08-11] MEDS: POTASSIUM CHLORIDE 20 MEQ/15 ML UDCUP PER TUBE PRN (09:52)
[2018-08-11] MEDS: ZINC OXIDE PASTE 113 GM TUBE TOP SCH (09:53)
[2018-08-11] MEDS: SKIN HEALING OINT (AQUAPHOR) 50 GM TUBE TOP SCH (09:53)
[2018-08-11] MEDS: COLLAGENASE OINT 30 GM TUBE TOP SCH (09:53)
[2018-08-11 12:46] VITALS: BP 116/73
== END 2018-08-11 12:45 | DRG 177 ==
LOC: EDBD → EDUNIT# → N.ED 12:47 → N.EDINP 16:24 → SUATTDRO 16:24 → N.2E 16:57
PROVIDERS: ADMIT Internal Medicine; ATTEND Hospitalist